=== PATIENT | male | born 1945 | race Asian ===

== ENCOUNTER 2022-07-25 19:37 | Inpatient (IN) | payer BC ==
[~2022-07-25] VITALS: Ht 175.3 cm; Wt 67.1 kg
[2022-07-25 19:43] VITALS: BP 152/62
--- NOTE | 2022-07-25 19:43 | NUR ---
PT BIBA TO ER BED 11 ALS
--- NOTE | 2022-07-25 19:48 | NUR ---
SEE COMPLETE ASSESSMENT FOR FURTHER DETAIL
--- NOTE | 2022-07-25 20:00 | NUR ---
PER BODY CHECK NO WOUNDS NOTED.
[2022-07-25] MEDS ORDERED: VANCOMYCIN 1,000 MG in DEXTROSE 5% 250 ML IV ONE (20:10)
[2022-07-25] MEDS ORDERED: NACL 0.9% 1,000 ML IV ONE (20:10)
[2022-07-25] MEDS ORDERED: MEROPENEM 1,000 MG in NACL 0.9% 50 ML IV ONE (20:10)
--- NOTE | 2022-07-25 20:22 | NUR ---
PT'S IS HYSTERICAL, IS NOT ALLOWING TO PROVIDE CARE. PT VERBALIZED SHE DOES NOT WANT HER HERE, SHE WANTED HIM TO GO TO [facility]. SECURITY IS AT BEDSIDE. UNABLE TO REMOVE FROM ER. [place] [employer] CONTACTED, STATES THEY WILL SEND SOMEONE OUT.
--- NOTE | 2022-07-25 20:34 | NUR ---
[place] [employer] AT BEDSIDE.
--- NOTE | 2022-07-25 21:03 | NUR ---
RADIOLOGY AT BEDSIDE
[2022-07-25 21:07] LABS: HEMOGLOBIN 11.1 g/dL (12.0-18.0); MEAN CORPUSCULAR HEMOGLOBIN 31 pg (27-31); MEAN CORPUSCULAR HGB CONC 33 g/dL (33-37); MEAN CORPUSCULAR VOLUME 94.4 fL (80-94); PLATELET COUNT (AUTO) 274 K/uL (140-450); RED CELL DISTRIBUTION WIDTH 14.8 % (11.6-13.7)
[2022-07-25] MEDS ORDERED: MEROPENEM 1,000 MG VIAL IV ONE (21:08)
[2022-07-25] MEDS ORDERED: VANCOMYCIN 1,000 MG VIAL ONE (21:08)
[2022-07-25 21:31] LABS: EOSINOPHILS % (MANUAL) 1 % (0-4); LYMPHOCYTES % (MANUAL) 8 % (20-46); MONOCYTES % (MANUAL) 1 % (5-12); MYELOCYTES % 1 % (0-0); PROMYELOCYTES % 3 % (0-0)
[2022-07-25 21:35] LABS: ALBUMIN 1.9 g/dL (3.4-5.0); ANION GAP 9.3 (8-16); ASPARTATE AMINOTRANSFERASE 19 U/L (15-37); CHLORIDE 108 mmol/L (98-107); CREATININE 0.9 mg/dL (0.6-1.3); GLUCOSE 115 mg/dL (74-106); POTASSIUM 3.3 mmol/L (3.5-5.1); SODIUM SERUM 146 mmol/L (136-145); TOTAL BILIRUBIN 0.4 mg/dL (0.0-1.0); UREA NITROGEN, BLOOD 34 mg/dL (7-18)
[2022-07-25] MEDS ORDERED: BETH5TAB GT (22:08)
[2022-07-25] MEDS ORDERED: ALBU0.0912 INH (22:08)
[2022-07-25] MEDS ORDERED: MULT-2253 PO (22:08)
[2022-07-25] MEDS ORDERED: ATRMDI INH (22:08)
[2022-07-25] MEDS ORDERED: LACT-103 GT (22:08)
[2022-07-25] MEDS ORDERED: SCOP0.333 TP (22:08)
[2022-07-25] MEDS ORDERED: AMIO100T3 GT (22:08)
[2022-07-25] MEDS ORDERED: MIDO10TA GT (22:08)
[2022-07-25] MEDS ORDERED: DOCU-299 GT (22:08)
[2022-07-25] MEDS ORDERED: VANCOMYCIN PER PHARMACY MC PRN ×3 (22:10→22:30)
[2022-07-25] MEDS ORDERED: ONDANSETRON 4 MG/2 ML VIAL IVP PRN ×3 (22:10→22:30)
[2022-07-25] MEDS ORDERED: POTASSIUM CHLORIDE 10 MEQ TABER PO PRN ×3 (22:10→22:30)
[2022-07-25] MEDS ORDERED: ACETAMINOPHEN 325 MG TAB PO PRN ×2 (22:10→22:15)
[2022-07-25] MEDS ORDERED: MORPHINE SULFATE 4 MG/ML SYR IVP PRN ×3 (22:10→22:30)
[2022-07-25] MEDS ORDERED: MAGNESIUM OXIDE 400 MG TAB PO PRN ×3 (22:10→22:30)
--- NOTE | 2022-07-25 23:20 | NUR ---
# 16 FR Johnson catheter with 10 ml utilizing sterile technique. Immediate return of 10 ml cloudy yellow urine noted. Bedside drainage bag placed below level of bladder. Urine sample collected and sent to lab. Pt tolerated procedure well.
--- NOTE | 2022-07-25 23:39 | NUR ---
PROVIDED SEAN SWEET WITH AN UPDATE.
--- NOTE | 2022-07-25 23:40 | NUR ---
brief and linen changed. pt repositioned or comfort. lights dimmed.
[2022-07-26] MEDS ORDERED: PIPERACILLIN/TAZOBACTAM 3.375 GM in DEXTROSE 5% 50 ML IV SCH ×4
[2022-07-26] MEDS: PIPERACILLIN/TAZOBACTAM 3.375 GM in DEXTROSE 5% 50 ML IV SCH ×5 (00:18→23:50)
[2022-07-26] MEDS ORDERED: PIPERACILLIN/TAZOBACTAM 3.375 GM VIAL IV ONE ×2 (00:18→06:08)
[2022-07-26 00:54] LABS: APPEARANCE,URINE CLEAR (CLEAR); BILIRUBIN,URINE NEGATIVE (NEGATIVE); BLOOD, URINE 1+ (NEGATIVE); COLOR,URINE YELLOW (YELLOW); LEUKOCYTE ESTERASE ,URINE NEGATIVE (NEGATIVE); NITRITE, URINE NEGATIVE (NEGATIVE); PH,URINE 7.5 (5.0-9.0); UGLUCOSE NEGATIVE (NEGATIVE)
[2022-07-26 01:01] LABS: RBC,URINE 11-20 (MOD) /HPF (0-5)
--- NOTE | 2022-07-26 03:55 | NUR ---
pt destated to bed 81% via nc. RT to bedside to nasal suction. pt at 88%. pt placed on 15l non-rebreather. o2 sat at 92%.
--- NOTE | 2022-07-26 04:15 | NUR ---
pt brief changed. 1 loose bowel movement noted. during brief change pt noted to feel warm. temp taken at 103.
[2022-07-26] MEDS: ACETAMINOPHEN 325 MG TAB PO PRN ×3 (04:18→18:14)
--- NOTE | 2022-07-26 04:30 | NUR ---
COOLING MEASURES STARTED
[2022-07-26] MEDS ORDERED: ACETAMINOPHEN 325 MG SUPP RC ONE (04:31)
[2022-07-26] MEDS ORDERED: ACETAMINOPHEN 325 MG TAB ONE (04:33)
--- NOTE | 2022-07-26 04:40 | NUR ---
PT O2 MAINTAINED AT 95% VIA 15L NRB
--- NOTE | 2022-07-26 06:05 | NUR ---
PT PLACED ON 4L VIA NC. O2 SAT MAINTAINED AT 94%
--- NOTE | 2022-07-26 06:20 | NUR ---
SHAH COLLECTION EMPTIED, 450CC OF YELLOW URINE NOTED
--- NOTE | 2022-07-26 07:15 | NUR ---
REPORT GIVEN TO SHALONDA RAYA. TRANSFER OF CARE AT THIS TIME.
[2022-07-26 07:34] LABS: BASOPHILS % (AUTO) 0.1 % (0.0-2.0); EOSINOPHILS # (AUTO) 0.3 K/uL (0-0.4); EOSINOPHILS % (AUTO) 1.3 % (0.0-4.0); HEMATOCRIT 34.6 % (36-52); HEMOGLOBIN 11.3 g/dL (12.0-18.0); LYMPHOCYTES # (AUTO) 0.5 K/uL (2.0-11.5); LYMPHOCYTES % (AUTO) 2.3 % (20.5-51.1); MEAN CORPUSCULAR HEMOGLOBIN 31 pg (27-31); MEAN CORPUSCULAR HGB CONC 33 g/dL (33-37); MEAN CORPUSCULAR VOLUME 94.5 fL (80-94); MONOCYTES # (AUTO) 0.6 K/uL (0.8-1.0); NEUTROPHILS # (AUTO) 20.2 K/uL (1.8-7.7); NEUTROPHILS % (AUTO) 93.3 % (42.2-75.2); PLATELET COUNT (AUTO) 276 K/uL (140-450); RED BLOOD CELL COUNT(AUTO) 3.66 MIL/uL (4.20-6.10); WHITE BLOOD COUNT (AUTO) 21.6 K/uL (4.8-10.8)
[2022-07-26 07:46] LABS: ANION GAP 12.1 (8-16); CHLORIDE 111 mmol/L (98-107); CREATININE 1.1 mg/dL (0.6-1.3); GLUCOSE 100 mg/dL (74-106); POTASSIUM 3.1 mmol/L (3.5-5.1); SODIUM SERUM 148 mmol/L (136-145); UREA NITROGEN, BLOOD 30 mg/dL (7-18)
[2022-07-26 07:51] LABS: MAGNESIUM 2.4 mg/dL (1.8-2.4); PHOSPHORUS 2.4 mg/dL (2.5-4.9)
--- NOTE | 2022-07-26 08:26 | NUR ---
PT ARRIVED FROM ER. WITH A LOT OF CONGESTION, SUCTION AND COLLECTED SPUTUM PT IN 3L NC.[id number]
--- NOTE | 2022-07-26 08:26 | NUR ---
RECEIVED PT FROM ER ON 4L NASAL CANNULA.
[2022-07-26] MEDS: ALBUTEROL SULFATE/IPRATROPIU 3 ML SOL IH SCH ×3 (08:30→21:20)
--- NOTE | 2022-07-26 08:30 | NUR ---
NTS ON PT, SPUTUM SAMPLE SET TO LAB. PT RESTING COMFORTABLY. WILL CONTINUE TO MONITOR.
--- NOTE | 2022-07-26 08:36 | NUR ---
Patient will be admitted to care of DINESH LOCKE. Admitted to telemetry. Will go to room 108B. Belongings list completed. Report to Jan LIZ.
--- NOTE | 2022-07-26 08:39 | NUR ---
Patient will be admitted to care of 103A. Admited to TELE. Will go to room. Belongings list completed. Report to .
[2022-07-26] MEDS: AMIODARONE 200 MG TAB PO SCH (09:00)
[2022-07-26] MEDS: MIDODRINE 5 MG TAB PO SCH ×3 (09:00→17:00)
--- NOTE | 2022-07-26 09:24 | NUR ---
PATIENT HAS BEEN SCREENED AND CATEGORIZED MODERATE NUTRITION RISK. PATIENT WILL BE SEEN WITHIN 3-5 DAYS OF ADMISSION. 07/25/22-07/30/[address]
--- NOTE | 2022-07-26 12:40 | NUR ---
PT CURRENTLY ON 5L BUBBLE. SATURATION IS 95%. COARSE BREATH SOUNDS. 1045 REPEAT NTS. THICK YELLOW SPUTUM SUCTIONED UP. IMPROVED BREATH SOUNDS. ASKED DAUGHTER KINDLY TO NOT TOUCH THE FLOWMETER AND SUCTION ON THE WALL. WILL CONTINUE TO MONITOR.
[2022-07-26 15:23] VITALS: BP 116/62
[2022-07-26 16:44] VITALS: BP 111/57
--- NOTE | 2022-07-26 16:44 | NUR ---
PATIENT HAS BEEN RESCREENED AND CATEGORIZED HIGH NUTRITION RISK. PATIENT WILL BE SEEN WITHIN 1-2 DAYS OF ADMISSION. 07/25/22-07/27/[address] REFERRAL RECEIVED FOR G TUBE FEEDING
[2022-07-26] MEDS: VANCOMYCIN 1,000 MG in DEXTROSE 5% 250 ML IV SCH (16:47)
--- NOTE | 2022-07-26 17:08 | NUR ---
07/26/22 RD INITIAL ASSESSMENT COMPLETED. PLEASE REFER TO NUTRITION ASSESSMENT UNDER CARE ACTIVITY FOR ESTIMATED NUTRITIONAL NEEDS. 1. CONTINUE JEVITY 1.2 YURY TF WITH A GOAL RATE OF 60ML/HR TOLERATED; FWF 100 ML Q6H OR PER MD. START TF AT 20 ML/HR AND INCREASE BY 20 ML Q4 UNTIL GOAL RATE IS REACHED PT TOLERATES. 2. MONITOR FOR GI SYMPTOMS 3. RD TO FOLLOW-UP 2-3 DAYS, HIGH RISK [address]
--- NOTE | 2022-07-26 17:39 | NUR ---
PT ON 5L BUBBLE HUMIDIFIER. SATURATION 97-98%. RHONCHI ON AUSCULTATION. SUCTION NEEDED. WILL CONTINUE TO MONITOR.
--- NOTE | 2022-07-26 17:47 | NUR ---
SUCTIONED PT SEVERAL TIMES IV ANTIBIOTIC INFUSING ORDERED.V.S STABLE G- TUBE FEEDING IS INFUSING ORDERED.[id number]
--- NOTE | 2022-07-26 19:30 | NUR ---
REVRIVED PT IN STABLE CONDITION.SL X2 PATENT.RESP.UNLABORED W/O2 VIA NC.F/C PATENT AND DRAINING YELLOW COLOR URINE.TELE IS ON AND SHOWING SR.G-T FEEDING IS IN PROGRESS.NO S/S OF ANY DISTRESS NOTED.
[2022-07-26 20:00] VITALS: BP 111/57
[2022-07-27] VITALS: BP 109/60
--- NOTE | 2022-07-27 | NUR ---
VS STABLE.HR IS SR.NO S/S OF DISTRESS NOTED.
[2022-07-27] MEDS: ALBUTEROL SULFATE/IPRATROPIU 3 ML SOL IH SCH ×4 (01:54→19:27)
[2022-07-27 04:00] VITALS: BP 111/63
[2022-07-27] MEDS: ACETAMINOPHEN 325 MG TAB PO PRN ×3 (04:02→19:59)
--- NOTE | 2022-07-27 04:30 | NUR ---
HAD FEVER TAQQ=249.3.TYLENOL VIA G-TUBE GIVEN.WILL MONITOR TEMP LATER.HR IS SR.SUCTIONED PT PRN.
[2022-07-27] MEDS: PIPERACILLIN/TAZOBACTAM 3.375 GM in DEXTROSE 5% 50 ML IV SCH ×2 (05:47→12:00)
--- NOTE | 2022-07-27 07:00 | NUR ---
RECHECKED TEMP=99.2
[2022-07-27 07:28] LABS: BASOPHILS % (AUTO) 0.1 % (0.0-2.0); EOSINOPHILS # (AUTO) 0.5 K/uL (0-0.4); EOSINOPHILS % (AUTO) 2.5 % (0.0-4.0); HEMATOCRIT 31.9 % (36-52); HEMOGLOBIN 10.5 g/dL (12.0-18.0); LYMPHOCYTES # (AUTO) 0.9 K/uL (2.0-11.5); LYMPHOCYTES % (AUTO) 4.6 % (20.5-51.1); MEAN CORPUSCULAR HEMOGLOBIN 31 pg (27-31); MEAN CORPUSCULAR HGB CONC 33 g/dL (33-37); MONOCYTES # (AUTO) 0.6 K/uL (0.8-1.0); MONOCYTES % (AUTO) 3.4 % (1.7-9.3); NEUTROPHILS # (AUTO) 16.5 K/uL (1.8-7.7); NEUTROPHILS % (AUTO) 89.4 % (42.2-75.2); PLATELET COUNT (AUTO) 301 K/uL (140-450); RED BLOOD CELL COUNT(AUTO) 3.39 MIL/uL (4.20-6.10); RED CELL DISTRIBUTION WIDTH 15.1 % (11.6-13.7); WHITE BLOOD COUNT (AUTO) 18.4 K/uL (4.8-10.8)
[2022-07-27 07:38] LABS: ANION GAP 11.7 (8-16); CARBON DIOXIDE 27.8 mmol/L (21-32); CHLORIDE 113 mmol/L (98-107); CREATININE 1.2 mg/dL (0.6-1.3); GLUCOSE 158 mg/dL (74-106); POTASSIUM 3.5 mmol/L (3.5-5.1); SODIUM SERUM 149 mmol/L (136-145); UREA NITROGEN, BLOOD 33 mg/dL (7-18)
[2022-07-27 07:45] LABS: MAGNESIUM 2.3 mg/dL (1.8-2.4)
[2022-07-27 08:00] VITALS: BP 118/56
[2022-07-27] MEDS: MIDODRINE 5 MG TAB PO SCH ×3 (09:00→16:47)
[2022-07-27] MEDS: AMIODARONE 200 MG TAB PO SCH (09:09)
[2022-07-27] MEDS: VANCOMYCIN 1,000 MG in DEXTROSE 5% 250 ML IV SCH (10:00)
[2022-07-27 12:00] VITALS: BP 119/59
--- NOTE | 2022-07-27 14:52 | NUR ---
SATURATION 95% ON HUMIDIFIED SUPPLEMENTAL OXYGEN AT 5 LPM VIA NC; USING STERILE TECHNIQUE NASOTRACHEAL AND OROPHARYNGEAL SUCTION FRO LARGE THIN YELLOW SECRETIONS AIRWAY PATENT; POST HHN THERAPY TITRATED FIO2 TO 4 LPM
--- NOTE | 2022-07-27 15:21 | NUR ---
PM SHIFT NURSE INFORM THAT PATIENT'S FAMILY LEFT CAMERA IN PATIENT'S ROOM. NURSE REPORT THE SATURATION TO CHARGE NURSE BECAUSE IT IS VIOLATION FOR [place] LAW. SECURITY CALLED AND CAMERA REMOVED. AROUND 1400, PATIENT'S FAMILY COME TO FLOOR AND ACCUSE THAT HOSPITAL STAFF DID NOT DRESSING PATIENT IN CLOTHES. NURSE EXPLAIN THAT PATIENT'S TEMPERATURE ABOVE 99.0F. DRESSING PATIENT IN WARM CLOTHES IS NOT THERAPEUTIC FOR POSSIBLE ELEVATED TEMPERATURE. THEN FAMILY REQUEST GIVE TYLENOL FOR PREVENTING TEMPERATURE GETTING HIGH. NURSE GIVEN TYLENOL AT THIS TIME. ADDITIONALLY, PATIENT FAMILY STOP SUCTION AT MOUTH FOR SPUTUM. DEMANDING FOR STOOL SOFT, NURSE EXPLAIN THAT PATIENT IS ON TWO TYPES OF IV ANTIBIOTIC AND ANTIBIOTIC IS NATURAL LAXATIVE. Addendum: 07/27/22 at 1921 by Marianne Rothman RN ENDORSE PATIENT TO PM SHIFT NURSE WHILE REST IN BED W/ SIGNIFICANT OTHER AT BEDSIDE; PIV AT R. HAND 22G & L. HAND 24G SALINE LOCK; PATIENT IS COVER WITH WARM BLANKET AND TEMPORAL TEMPERATURE 99.2F
[2022-07-27 16:00] VITALS: BP 99/63
--- NOTE | 2022-07-27 19:30 | NUR ---
ENDORSED TO ME BY WILD LIZ , T 99.2 - WILL DO TSB , WILL CONT. TO MONITOR . Addendum: 07/28/22 at 0010 by Sherry Murcia RN TEMP RE CHECK AT 1940 100. 3 , FACIAL GRIMACING , FLACC 3 , O2 SAT 99 % , BP 98/61 , SR ON TELE MONITOR , WILL MEDICATE AND WILL CONT. TSB . FOR CLOSELY WATCH .
[2022-07-27 20:00] VITALS: BP 99/61
--- NOTE | 2022-07-27 21:00 | NUR ---
TEMP . RE CHECK 99.1F , CONTINUING GIVING TSB , WILL CONT . TO MONITOR. Addendum: 07/28/22 at 0802 by Sherry Murcia RN AT FEEDING RESIDUAL OF 20CC .
[2022-07-27] MEDS ORDERED: MEROPENEM 1,000 MG VIAL IV ONE (21:15)
[2022-07-27] MEDS: MEROPENEM 1,000 MG in NACL 0.9% 50 ML IV SCH (21:18)
--- NOTE | 2022-07-27 22:00 | NUR ---
TEMP RE CHECK , 98.2 , WILL TURN THE PT PER PROTOCOL , WILL CONT. TO MONITOR .
[2022-07-28] VITALS: BP 103/59
--- NOTE | 2022-07-28 | NUR ---
ROUNDS , NO S/SX OF ACUTE DISTRESS NOTED , WILL CONT. TO MONITOR .
[2022-07-28] MEDS: ALBUTEROL SULFATE/IPRATROPIU 3 ML SOL IH SCH ×4 (01:50→19:00)
--- NOTE | 2022-07-28 03:47 | NUR ---
RT AT BEDSIDE , SUNCTIONING , WILL CONT. TO MONITOR .
[2022-07-28 04:00] VITALS: BP 105/58
--- NOTE | 2022-07-28 04:00 | NUR ---
RENDERING TSB , WILL CONT. TO MONITOR
--- NOTE | 2022-07-28 05:07 | NUR ---
HOT TO TOUCH , TEMP[ RE CHECK 100.4 F , WILL TSB , WILL CONT. TO MONITOR .
[2022-07-28] MEDS: VANCOMYCIN 1,000 MG in DEXTROSE 5% 250 ML IV SCH ×2 (05:08→21:09)
[2022-07-28] MEDS: ACETAMINOPHEN 325 MG TAB PO PRN (05:08)
--- NOTE | 2022-07-28 05:59 | NUR ---
SUCTIONING , O2 SAT 98 % , WILL CONT. TO MONITOR .
--- NOTE | 2022-07-28 06:00 | NUR ---
TEMP RE CHECK 98. 6 F , BY FOREHEAD , 98 .5 F BY AXILLARY , WILL CONT. TO MONITOR .
[2022-07-28] MEDS: MEROPENEM 1,000 MG in NACL 0.9% 50 ML IV SCH ×2 (06:30→13:15)
--- NOTE | 2022-07-28 06:31 | NUR ---
RT TO FURTHER SUCTIONING , W/ PREVIOUSLY TRACH . , WILL CONT. TO MONITOR
[2022-07-28] MEDS ORDERED: MEROPENEM 1,000 MG VIAL IV ONE (06:34)
[2022-07-28 06:59] LABS: ANION GAP 12.4 (8-16); CARBON DIOXIDE 28.4 mmol/L (21-32); CHLORIDE 113 mmol/L (98-107); GLUCOSE 136 mg/dL (74-106); POTASSIUM 3.8 mmol/L (3.5-5.1); SODIUM SERUM 150 mmol/L (136-145); UREA NITROGEN, BLOOD 27 mg/dL (7-18)
--- NOTE | 2022-07-28 07:03 | NUR ---
RT AT BEDSIDE . Addendum: 07/28/22 at 0713 by Sherry Murcia RN INFORMED DR. HILL PT HAD 100.4F FEVER , AND THE PT.'S DAUGHTER WANTS TO TALK DR. HILL ABOUT PLAN OF CARE AND TXT , PT'S DAUGHTER SUGGESTING TRANSFER PT TO ICU . PER DR. HILL HE WILL SEE THE PT AND WILL CALL THE DAUGHTER . - WILL ENDORSE .
[2022-07-28 07:09] LABS: MAGNESIUM 2.3 mg/dL (1.8-2.4); PHOSPHORUS 4.5 mg/dL (2.5-4.9)
[2022-07-28 07:11] LABS: BASOPHILS % (AUTO) 0.2 % (0.0-2.0); EOSINOPHILS # (AUTO) 0.6 K/uL (0-0.4); EOSINOPHILS % (AUTO) 3.9 % (0.0-4.0); HEMATOCRIT 31.3 % (36-52); HEMOGLOBIN 10.3 g/dL (12.0-18.0); LYMPHOCYTES # (AUTO) 1.3 K/uL (2.0-11.5); LYMPHOCYTES % (AUTO) 8.1 % (20.5-51.1); MEAN CORPUSCULAR HEMOGLOBIN 31 pg (27-31); MEAN CORPUSCULAR HGB CONC 33 g/dL (33-37); MEAN CORPUSCULAR VOLUME 94.5 fL (80-94); MONOCYTES # (AUTO) 0.6 K/uL (0.8-1.0); MONOCYTES % (AUTO) 3.8 % (1.7-9.3); NEUTROPHILS # (AUTO) 13.1 K/uL (1.8-7.7); PLATELET COUNT (AUTO) 306 K/uL (140-450); RED BLOOD CELL COUNT(AUTO) 3.31 MIL/uL (4.20-6.10); RED CELL DISTRIBUTION WIDTH 14.9 % (11.6-13.7); WHITE BLOOD COUNT (AUTO) 15.6 K/uL (4.8-10.8)
--- NOTE | 2022-07-28 07:15 | NUR ---
RECEIVED REPORT FROM RANGE MANAGEMENT SPECIALIST NURSE RUFINO FOR CONTINUITY OF CARE. PT STABLE IN BED RESTING. NO SIGNS OF DISTRESS. ALL SAFETY PRECAUTIONS IN PLACE. WILL CONTINUE TO MONITOR.
--- NOTE | 2022-07-28 07:25 | NUR ---
INFORMED DR. ANNE AND DR. IRELAND PT HAD FEVER 100.4 F , AND PT.'S DAUGHTER WANTS TO TALK THE DOCTOR ABOUT THE PLAN OF CARE AND TXT , PT.'S DAUGHTER SUGGESTING PT TO TRANSFER TO ICU . DR. IRELAND READ MY TEXT MSG - ENDORSED TO AM NURSE . LATEST TEMP 98.3 F .
[2022-07-28 08:00] VITALS: BP 102/60
[2022-07-28] MEDS: MIDODRINE 5 MG TAB PO SCH ×3 (09:57→17:22)
[2022-07-28] MEDS: AMIODARONE 200 MG TAB PO SCH (09:57)
[2022-07-28] MEDS: DEXT 5% / NACL 0.45% 1,000 ML IV SCH ×2 (10:43→20:55)
[2022-07-28 12:00] VITALS: BP 110/73
--- NOTE | 2022-07-28 15:00 | NUR ---
DISCHARGE PLANNING PATIENT IS A 77 YEAR OLD MALE ADMITTED ON 07/25/2022 TO [facility]/ED DUE TO PNEUMONIA. SW MEET WITH PATIENT, DAUGHTER AND HIS AT BEDSIDE. PER PATIENT'S DAUGHTER KEE OMER PATIENT WAS IN [facility] IN [place] SINCE 2021. AND IS REQUESTING TO HAVE PATIENT CHANGE TO A DIFFERENT SNF WHEN IS TIME FOR PATIENT TO DISCHARGE. PER PATIENT'S DAUGHTER SHE WANTS PATIENT TO GO TO [facility] OR TO [facility]. PER PATIENT'S DAUGHTER IF PATIENT CAN NOT GO TO NEITHER OF THOSE FACILITIES SHE PREFERS FOR PATIENT TO GO BACK HOME WITH . SW EXPLAINED TO FAMILY THAT IF PATIENT GOES HOME HE MAY NEED TO HAVE ASSISTANCE FROM CAREGIVERS. FAMILY ACKNOWLEDGE THE INFORMATION AND STATED THAT THEY WILL LIKE TO TRY TO TO HAVE PATIENT GO TO THE OTHER TWO FACILITIES OF THEIR CHOICE. PER PATIENT'S FAMILY THEY WILL CONTINUE TO COMMUNICATE WITH THE TEAM AND THE DOCTOR TO COORDINATE DISCHARGE AND LEVEL OF CARE BEFORE DISCHARGE AND FACILITY PLACEMENT. GELY INFORMED FAMILY THAT THEIR CONCERNS WILL BE ENDORSE TO CM. SW /CM WILL FOLLOW UP NEEDED.
--- NOTE | 2022-07-28 15:09 | NUR ---
DC PLANNING: PER FAMILY REQUEST DAUGHTER KEE TO TRANSFER TO [facility]. RECEIVED A CALL FROM [facility] [phone] SPOKE WITH KYAW PIERSONYESI STATED SHE REQUESTED A BED AND THERE IS NO BED AND WILL F/U TOMORROW. CM TO FOLLOW Addendum: 07/30/22 at 1211 by Halina Sutton RN DC PLANNING: CALLED [facility] SPOKE WITH SILVIA CARD DISCUSSED THE TRANSFER TO [facility] THERE IS NO BED AVAILABLE AT THIS TIME. WILL DISCUSS WITH DR IRELAND AND PT'S DAUGHTER. KYAW TO FOLLOW Addendum: 07/30/22 at 1554 by Halina Sutton RN DC PLANNING: KYAW DISCUSSED THE DC PLAN WITH DR IRELAND , DR IRELAND CALLED PT'S DAUGHTER EXPLAINED THAT [facility] HAS NO BED AND PATIENT IS STABLE FOR DISCHARGE. PER KEE REFUSED HIM TO GO BACK TO [facility] AND WANTED TO TAKE HIM HOME. ORDER FOR HOME HEALTH, HOME O2 , [facility] BED WHEELCHAIR AND BED SIDE COMMODE. KYAW CONTACTED [facility] SPOKE WITH SILVIA AND FAXED ALL THE REQUEST TO [phone]. PER SILVIA WILL WORKING ON IT AND DC PLAN TOMORROW 07/31/22 KEE AGREED AND AWAITING FOR INSURANCE APPROVAL. KYAW TO FOLLOW. Addendum: 07/31/22 at 1511 by Halina Sutton RN DC PLANNING: UNABLE TO REACH KYAW VEGA [phone] IRELAND HAVING A PROBLEM WITH PHONE LINE. KYAW AND DR IRELAND DISCUSSED THE DC PLAN WITH KEE DAUGHTER PER KEE SHE DOESN'T WANT TO SEND HER FATHER TO [facility] OR AND OTHER SNF RATHER WANT TO TAKE HIM HOME SHE IS REQUESTING THE DME TO BE DELIVERED TO HER ADDRESS [address] [place] [address] [address] [facility] [id number]. KYAW EXPLAINED INSURANCE WON'T COVER THE TRANSPORT TO [place] PER KEE WILL PAY THE CO PAY. KYAW TO FOLLOW Addendum: 07/31/22 at 1627 by Halina Sutton RN DC PLANNING: RECEIVED A CALL FROM [facility] [phone] SPOKE WITH CHACHA CARD STATED THE ORDER FOR HOSPITAL BED AND WHEELCHAIR HAS TO BE REVIEWED AND STILL AWAITING TO AUTHORIZE IT BUT SHE STATED WILL ORDER HOME HEALTH AND HOME O2 AND NOTIFIED HER THAT TO BE DELIVERED AT DAUGHTER'S HOUSE IN [place]. PROVIDE NEW [employer] SUP NUMBERRolan CARD TO FOLLOW Addendum: 08/12/22 at 1710 by Halina Sutton RN DC PLANNING: STILL INTUBATED SEDATED ON CPAP TRIAL, CONTINUED TOLERATED FIO2 30% NO DRIPS. CALLED [facility] [phone] SPOKE WITH JET ESCOBAR PT'S CLINICAL, SHE REQUESTED 'S PHONE PROVIDE CRITICAL CARE DR JOHNSON'S NUMBER. KYAW TO FOLLOW Addendum: 08/17/22 at 1159 by Halina Sutton RN DC PLANNING: PATIENT HAS TRACHEOSTOMY ON 08/14/22 STABILIZED AND TRANSFERRED TO [facility], CONTINUE IV ABX LEVAQUIN AND VANCO. ID AND PULMO FOLLOWING. CALLED [facility] AND FOLLOWED UP WITH [facility] TRANSFER PER FRANK AT [facility] STATED O BED OVER THE WEEKEND PER DAUGHTER DOESN'T WANT [facility] BUT OK WITH [facility]. FAXED UPDATED CLINICALS DC PLAN IF MD CLEARS PATIENT TO GO TO [facility] ACUTE WILL RETURN TO [facility] RECEIVED A CALL FROM [facility] [phone] SPOKE WITH MARSHALL WILL EVALUATE PT . CM TO FOLLOW Addendum: 08/19/22 at 1713 by Halina Sutton RN DC PLANNING: CALLED [facility] SPOKE WITH FRANK STATED NO BED AVAILABLE IN [facility] PER DAUGHTER REQUESTING TO TALK TO DR JOSE MELGOZA PATIENT HAS TO GO TO [facility] AND OPEN FOR ANY [facility]. NOTIFIED DR GARCIA. CM TO FOLLOW Addendum: 08/21/22 at 1416 by Halina Sutton RN DC PLANNING: KYAW SPOKE WITH SILVIA AT [facility] DISCUSSED POTENTIAL DISCHARGE TO [facility] VS [facility] AND NO BED AVAILABLE AT [facility] PER SILVIA IF MD ORDER DC TO [facility] AND WE FIND ONE DAUGHTER CAN APPEAL TO [facility]. NOTIFIED DR ANNE WILL DISCUSS WITH DR GARCIA. KYAW TO FOLLOW Addendum: 08/24/22 at 1232 by Halina Sutton RN DC PLANNING: [facility] SPOKE WITH FRANK STATED NO BED AVAILABLE IN [facility]. FAXED TO [facility]. KYAW TO FOLLOW Addendum: 08/24/22 at 1550 by Halina Sutton RN DC PLANNING: RECEIVED A CALL FROM FRANK AT [facility] STATED [facility] MIGHT HAVE A BED TONIGHT. CALLED [facility] CARD SPOKE WITH JET AND PROVIDED THE AUTH NUMBER FOR [facility] [id number], SHE WILL SEND THE HARD COPY TO [facility]. CARD TO FOLLOW Addendum: 08/24/22 at 1638 by Halina Sutton RN DC PLANNING: RECEIVED A CALL FROM [facility]ANK PATIENT GOT ACCEPTED AT [facility] CAN GO TO ROOM [address] JOHNSON .# TO GIVE REPORT [phone] ARRANGED TRANSPORT WITH [facility] PICK UPTIME WITH IN 45 MIN NOTIFIED FERNANDO FELIX NURSE Addendum: 08/24/22 at 1641 by Halina Sutton RN DC PLANNING: NOTIFIED PT'S DAUGHTER KEE , SHE AGREED GOING TO [facility].
[2022-07-28 16:00] VITALS: BP 110/68
[2022-07-28] MEDS ORDERED: cefTRIAXone 2,000 MG VIAL ONE (18:05)
[2022-07-28] MEDS: cefTRIAXone 2,000 MG in DEXTROSE 5% 100 ML IV SCH (18:49)
--- NOTE | 2022-07-28 19:10 | NUR ---
ENDORSED PT TO CHEMICAL SALES REPRESENTATIVE NURSE MARYCARMEN FOR CONTINUITY OF CARE. PT STABLE AT THIS TIME.
--- NOTE | 2022-07-28 19:11 | NUR ---
RECEIVED PT FROM MORNING SHIFT NURSE. PT IS A0X1, MANDARIN SPEAKING AND HAS GARBLE SPEECH. PT HAS 2L NC AND HAS SHAH CATHETER. PY HAS G-TUBE WITH JEVITY 1.2 RUNNING AT 6OML/HR WITH WATER FLUSH OF 250 EVERY 6 HRS. PT IV ON RIGHT FOREARM GAUGE 22 RUNNING WITH D5 1/2 NS AT 100. PT HAS HEALED WOUND ON SACRAL AND SKIN TEAR ON LEFT SHOULDER. ALL SAFETY MEASURES IMPLEMENTED. BED IN LOW POSITION, BED WHEELS ON LOCK AND CALL LIGHT WITHIN REACH.
[2022-07-28 20:00] VITALS: BP 111/65
[2022-07-28] MEDS ORDERED: MEROPENEM 1,000 MG in NACL 0.9% 100 ML IV SCH (21:00)
--- NOTE | 2022-07-28 21:09 | NUR ---
ALL SCHEDULED AND PRESCRIBED MEDICATION WAS GIVEN TO PT PER MD ORDER. ALL SAFETY MEASURES IMPLEMENTED. BED IN LOW POSITION, BED WHEELS ON LOCK AND CALL LIGHT WITHIN REACH.
[2022-07-29] VITALS: BP 103/59
--- NOTE | 2022-07-29 | NUR ---
PT IS SLEEPING. CHEST RISE AND FALL SYMMETRICALLY NOTED. RESPIRATION IS EVEN AND UNLABORED SATING AT 96%. ALL SAFETY MEASURES IMPLEMENTED. BED IN LOW POSITION, BED WHEELS ON LOCK AND CALL LIGHT WITHIN REACH.
[2022-07-29] MEDS: ALBUTEROL SULFATE/IPRATROPIU 3 ML SOL IH SCH ×4 (01:00→19:58)
--- NOTE | 2022-07-29 02:00 | NUR ---
ORAL CARE AND SUCTIONED THE PT. ALL SAFETY MEASURES IMPLEMENTED. BED IN LOW POSITION, BED WHEELS ON LOCK AND CALL LIGHT WITHIN REACH.
[2022-07-29 04:00] VITALS: BP 107/62
--- NOTE | 2022-07-29 04:00 | NUR ---
MORNING CARE WAS DONE TO PT. CHANGED LINENS, GOWN, & CHUCKS. SUCTIONED THE PT AGAIN. ALL SAFETY MEASURES IMPLEMENTED. BED IN LOW POSITION, BED WHEELS ON LOCK AND CALL LIGHT WITHIN REACH.
[2022-07-29] MEDS: DEXT 5% / NACL 0.45% 1,000 ML IV SCH ×2 (06:40→16:27)
[2022-07-29 06:57] LABS: BASOPHILS % (AUTO) 0.2 % (0.0-2.0); EOSINOPHILS # (AUTO) 0.5 K/uL (0-0.4); EOSINOPHILS % (AUTO) 3.4 % (0.0-4.0); HEMATOCRIT 30.3 % (36-52); LYMPHOCYTES # (AUTO) 2.2 K/uL (2.0-11.5); LYMPHOCYTES % (AUTO) 15.4 % (20.5-51.1); MEAN CORPUSCULAR HEMOGLOBIN 31 pg (27-31); MEAN CORPUSCULAR HGB CONC 33 g/dL (33-37); MEAN CORPUSCULAR VOLUME 94.7 fL (80-94); MONOCYTES # (AUTO) 0.6 K/uL (0.8-1.0); MONOCYTES % (AUTO) 4.1 % (1.7-9.3); NEUTROPHILS # (AUTO) 11.2 K/uL (1.8-7.7); NEUTROPHILS % (AUTO) 76.9 % (42.2-75.2); PLATELET COUNT (AUTO) 327 K/uL (140-450); RED CELL DISTRIBUTION WIDTH 14.7 % (11.6-13.7); WHITE BLOOD COUNT (AUTO) 14.6 K/uL (4.8-10.8)
[2022-07-29 07:01] LABS: ANION GAP 13.4 (8-16); CARBON DIOXIDE 25.7 mmol/L (21-32); CHLORIDE 110 mmol/L (98-107); CREATININE 0.8 mg/dL (0.6-1.3); GLUCOSE 143 mg/dL (74-106); POTASSIUM 4.1 mmol/L (3.5-5.1); SODIUM SERUM 145 mmol/L (136-145); UREA NITROGEN, BLOOD 21 mg/dL (7-18)
--- NOTE | 2022-07-29 07:10 | NUR ---
RECEIVED REPORT FROM OPTICAL EFFECTS CAMERA OPERATOR NURSE MARYCARMEN FOR CONTINUITY OF CARE. PT STABLE IN BED RESTING. NO SIGNS OF DISTRESS. ALL SAFETY PRECAUTIONS IN PLACE. WILL CONTINUE TO MONITOR.
[2022-07-29 07:12] LABS: MAGNESIUM 1.9 mg/dL (1.8-2.4); PHOSPHORUS 3.3 mg/dL (2.5-4.9)
--- NOTE | 2022-07-29 07:24 | NUR ---
PT IS STABLE. ENDORSED PT TO MORNING SHIFT NURSE FOR CONTINUITY OF CARE.
[2022-07-29 08:00] VITALS: BP 121/63
[2022-07-29] MEDS: MIDODRINE 5 MG TAB PO SCH ×3 (09:00→17:00)
[2022-07-29] MEDS: AMIODARONE 200 MG TAB PO SCH (09:23)
--- NOTE | 2022-07-29 11:28 | NUR ---
WOUND CARE EVALUATION NOTE: SKIN ASSESSMENT DONE WITH PRIMARY RN VANDANA ON THIS 77 Y/O PT ADMITTED WITH INITIAL DX SOB. PAST MEDICAL HX INCLUDES CKD, MDD, HISTORY OF CVA, NEUROMUSCULAR DYSFUNCTION OF BLADDER, HISTORY OF COVID-19, HTN, COPD, ISCHEMIC HEART DISEASE. PT ADMITTED WITH PRESSURE INJURY. ALL ABOVE INFORMATION OBTAINED FROM ADMISSION H&P AND CHART REVIEW. PT IS AWAKE WHEN TURNED, NON-VERBAL. SKIN IS WARM AND MOIST, BILATERAL LOWER EXTREMITY TRACE EDEMA. DORSAL PEDAL PULSES PRESENT AND NORMAL. INCONTINENT BOWEL AND BLADDER. POC DISCUSSED WITH PRIMARY RN, PT. IS ON [employer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
[2022-07-29 12:00] VITALS: BP_SYST 110; BP_SYST 121; BP_DIAS 63; BP_DIAS 85
[2022-07-29] MEDS: GAUZE TP SCH (13:29)
[2022-07-29] MEDS: Z-GUARD PASTE TP SCH (13:30)
[2022-07-29] MEDS: HYDRAGUARD CREAM TP SCH (13:30)
--- NOTE | 2022-07-29 15:58 | NUR ---
07/29/22 RD FOLLOW UP COMPLETED PLEASE REFER TO NUTRITION ASSESSMENT UNDER CARE ACTIVITY FOR ESTIMATED NUTRITIONAL NEEDS. 1. RECOMMEND JEVITY 1.2 @65 ML/HR, FWF 250 Q6H 2. RECOMMEND MARCELO BID - WITH MARCELO, WILL MEET 93% ESTIMATED ENERGY NEEDS AND 100% ESTIMATED PROTEIN NEEDS AND RECEIVE 1560 TOTAL VOLUME CONSISTING OF 2032 KCAL, 91 GM PROTEIN, AND TOTAL 2258 ML FREE WATER 3. MONITOR GI, WEIGHTS, LAB VALUES, AND RESIDUALS. 4. RD TO FOLLOW-UP 3-5 DAYS, MODERATE RISK REVIEWED BY CHIKI COHEN RD
[2022-07-29 16:00] VITALS: BP 122/77
[2022-07-29] MEDS: cefTRIAXone 2,000 MG in DEXTROSE 5% 100 ML IV SCH (18:08)
--- NOTE | 2022-07-29 19:05 | NUR ---
ENDORSED PT TO STRATEGY SPECIALIST NURSE MARYCARMEN FOR CONTINUITY OF CARE. PT STABLE AT THIS TIME.
[2022-07-29 20:00] VITALS: BP 104/60
--- NOTE | 2022-07-29 20:05 | NUR ---
RECEIVED REPORT FROM AM SHIFT. PATIENT WAS SEEN AND ASSESSED. PATIENT IS ON NASAL CANNULA 2L WITH SPO2 97%. NOTICED ADEQUATE BILATERAL CHEST RISE AND FALL. PATIENT IS IN NO RESPIRATORY DISTRESS AT THIS TIME. BILATERAL BREATH SOUNDS ON AUSCULTATION; UPPER LOBES: COARSE AND LOWER LOBES: COARSE. SCHEDULE TX WAS GIVEN TO PT ORDERED. PT TOLERATED WELL WITH NO ADVERSE REACTION. PLACED PT BACK ON 2L AFTER TX. PT TOLERATING WELL. WILL CONTINUE TO MONITOR PATIENT.
[2022-07-29] MEDS: POLYETHYLENE GLYCOL 17 GM/PKT PO SCH (20:48)
--- NOTE | 2022-07-29 22:00 | NUR ---
HANGED NEW G-TUBE FEEDING OF JEVITY 1.2 RUNNING AT 65CC/HR WITH WATER FLUSH OF 250 EVERY 6 HRS. ALL SAFETY MEASURES IMPLEMENTED. BED IN LOW POSITION, BED WHEELS ON LOCK AND CALL LIGHT WITHIN REACH.
[2022-07-30] VITALS: BP 93/54
--- NOTE | 2022-07-30 | NUR ---
PT IS SLEEPING. CHEST RISE AND FALL SYMMETRICALLY NOTED. RESPIRATION IS EVEN AND UNLABORED. ALL SAFETY MEASURES IMPLEMENTED. BED IN LOW POSITION, BED WHEELS ON LOCK AND CALL LIGHT WITHIN REACH.
[2022-07-30] MEDS: HYDRAGUARD CREAM TP SCH ×2 (01:04→12:31)
[2022-07-30] MEDS: ALBUTEROL SULFATE/IPRATROPIU 3 ML SOL IH SCH ×4 (01:14→19:23)
[2022-07-30] MEDS: DEXT 5% / NACL 0.45% 1,000 ML IV SCH ×2 (02:40→12:42)
[2022-07-30 04:00] VITALS: BP 98/55
--- NOTE | 2022-07-30 04:00 | NUR ---
MORNING CARE WITH ORAL CARE WAS DONE TO PT. ALL SAFETY MEASURES IMPLEMENTED. BED IN LOW POSITION, BED WHEELS ON LOCK AND CALL LIGHT WITHIN REACH.
[2022-07-30 06:43] LABS: ANION GAP 11.6 (8-16); CARBON DIOXIDE 27.3 mmol/L (21-32); CHLORIDE 110 mmol/L (98-107); CREATININE 0.9 mg/dL (0.6-1.3); GLUCOSE 161 mg/dL (74-106); POTASSIUM 3.9 mmol/L (3.5-5.1); SODIUM SERUM 145 mmol/L (136-145); UREA NITROGEN, BLOOD 18 mg/dL (7-18)
[2022-07-30 06:46] LABS: BASOPHILS % (AUTO) 0.4 % (0.0-2.0); EOSINOPHILS # (AUTO) 0.4 K/uL (0-0.4); EOSINOPHILS % (AUTO) 3.6 % (0.0-4.0); HEMATOCRIT 30.8 % (36-52); HEMOGLOBIN 10.3 g/dL (12.0-18.0); LYMPHOCYTES # (AUTO) 1.8 K/uL (2.0-11.5); LYMPHOCYTES % (AUTO) 17.2 % (20.5-51.1); MEAN CORPUSCULAR HEMOGLOBIN 32 pg (27-31); MEAN CORPUSCULAR HGB CONC 33 g/dL (33-37); MEAN CORPUSCULAR VOLUME 94.7 fL (80-94); MONOCYTES # (AUTO) 0.5 K/uL (0.8-1.0); MONOCYTES % (AUTO) 4.4 % (1.7-9.3); NEUTROPHILS # (AUTO) 7.9 K/uL (1.8-7.7); NEUTROPHILS % (AUTO) 74.4 % (42.2-75.2); PLATELET COUNT (AUTO) 325 K/uL (140-450); RED BLOOD CELL COUNT(AUTO) 3.25 MIL/uL (4.20-6.10); RED CELL DISTRIBUTION WIDTH 14.7 % (11.6-13.7); WHITE BLOOD COUNT (AUTO) 10.7 K/uL (4.8-10.8)
--- NOTE | 2022-07-30 07:10 | NUR ---
PT IS STABLE. ENDORSED PT TO MORNING SHIFT NURSE FOR CONTINUITY OF CARE.
--- NOTE | 2022-07-30 07:40 | NUR ---
RECEIVED PT ON 2L NASAL CANNULA. SATURATION 98%. EQUAL CHEST RISE. BILATERAL COURSE BREATH SOUNDS. NO RESPIRATORY DISTRESS NOTED. WILL CONTINUE TO MONITOR.
--- NOTE | 2022-07-30 07:49 | NUR ---
07/30/2022 Pt resting in bed RT at bedside. Pt lung sounds coarse rhonchi X 4 lobes. No acute distress noted at this time.
[2022-07-30 08:00] VITALS: BP 98/55
[2022-07-30] MEDS: AMIODARONE 200 MG TAB PO SCH (09:00)
[2022-07-30] MEDS: MIDODRINE 5 MG TAB PO SCH ×3 (09:00→17:00)
[2022-07-30] MEDS: POLYETHYLENE GLYCOL 17 GM/PKT PO SCH ×2 (09:00→20:31)
--- NOTE | 2022-07-30 10:30 | NUR ---
PT CURRENTLY ON 2LNC. SATURATION 93%. COARSE BILATERAL BREATH SOUNDS. REQUEST FOR NTS. THICK COPIOUS SECRETIONS WERE SUCTIONED OUT. SATURATION IS NOW 97%-98%. WILL CONTINUE TO MONITOR AND ASSESS FOR HOME O2.
--- NOTE | 2022-07-30 11:35 | NUR ---
HOME O2 EVALUATION. ROOM AIR SATURATION 95% FOR OVER 10MINS.
[2022-07-30 12:00] VITALS: BP 125/56
[2022-07-30] MEDS: GAUZE TP SCH (12:31)
[2022-07-30] MEDS: Z-GUARD PASTE TP SCH (12:32)
[2022-07-30 16:00] VITALS: BP 128/68
--- NOTE | 2022-07-30 16:34 | NUR ---
COARSE BREATH SOUNDS. UNABLE TO COUGH UP. NTS PT, SATURATION 93%. AFTER NTS SATURATION 96% ON ROOM AIR. WILL CONTINUE TO MONITOR.
[2022-07-30] MEDS: cefTRIAXone 2,000 MG in DEXTROSE 5% 100 ML IV SCH (18:15)
--- NOTE | 2022-07-30 19:18 | NUR ---
ENDORSED PT TO RITUAL CIRCUMCISER RN MJ FOR CONTINUITY OF CARE. PT STABLE RESTING IN BED. [id number]
--- NOTE | 2022-07-30 19:27 | NUR ---
PLACED PT ON 2L N/C PT SATURATION 89% UPON ENTERING ROOM, WITH PT ON ROOM AIR.
[2022-07-30 20:00] VITALS: BP 118/66
--- NOTE | 2022-07-30 20:00 | NUR ---
RECEIVED BEDSIDE REPORT FROM DAY NURSE EARLIER FOR CONTINUITY OF CARE. PATIENT ASLEEP,AROUSABLE TO NAME AND TOUCH. PATIENT ORIENTED TO SELF ONLY AND TRIES TO MUMBLE WORDS BUT UNABLE TO UNDERSTAND THE PATIENT. NOT IN ANY DISTRESS. VITAL SIGNS STABLE, AFEBRILE, SATING 96% ON 2L/NC. SR ON TELE MONITOR, [id number]. FALL PRECAUTION IMPLEMENTED. BED IN LOW AND LOCKED POSITION. CALL LIGHT WITHIN REACH. WILL CONTINUE POC
--- NOTE | 2022-07-30 21:30 | NUR ---
PATIENT AND DAUGHTER BOTH CALLED EARLIER AND ASKED ABOUT THE PATIENT CONDITION. GAVE BOTH AN UPDATE ABOUT THE PATIENT CONDITION AND VITAL SIGNS.
--- NOTE | 2022-07-30 22:00 | NUR ---
ALL DUE MEDICATIONS GIVEN ORDERED. PATIENT TOLERATED IT WELL. NO ADVERSE DRUG REACTION NOTED.
[2022-07-31] VITALS: BP 115/71
[2022-07-31] MEDS: ALBUTEROL SULFATE/IPRATROPIU 3 ML SOL IH SCH ×4 (00:29→19:26)
--- NOTE | 2022-07-31 01:16 | NUR ---
PAGED DR SPRINGER CERTIFIED NURSE MIDWIFE MD FOR TONIGHT TO NOTIFY MD THAT THE PATIENT HASN'T VOIDED YET AFTER SHAH WAS DC/D 6 HOURS AGO. BLADDER SCAN WAS DONE AND SHOWED >930 CC IN THE BLADDER. ALSO NEED TO NOTIFY MD THAT THE PATIENT IS VERY CONGESTED AND COUGHING A LOT TONIGHT. SUCTION AND BREATHING TREATMENT PROVIDED TOT HE PATIENT. AWAITING FOR CERTIFIED NURSE MIDWIFE MD TO CALL BACK.
[2022-07-31] MEDS: HYDRAGUARD CREAM TP SCH ×2 (01:30→13:00)
--- NOTE | 2022-07-31 01:30 | NUR ---
DR SPRINGER CALLED BACK AND AWARE THAT THE PATIENT DIDN'T VOID 6 HOURS AFTER THE SHAH IS DC'D AND ALSO AWARE THAT THE PATIENT IS CONGESTED AND HAS A LOT OF MUCUS. DR SPRINGER ORDERED TO DO BLADDER SCAN Q4 HOURS AND IF RESIDUAL IS > 400 CC TO DO STRAIGHT CATHETERIZATION. DR SPRINGER ALSO ORDERED TO DO CXR.
--- NOTE | 2022-07-31 02:27 | NUR ---
DID STRAIGHT CATHETERIZATION ORDERED. PATIENT HAS 1400 CC CLEAR URINE CAME OUT. PATIENT TOLERATED IT WELL.
[2022-07-31 04:00] VITALS: BP 106/57
--- NOTE | 2022-07-31 04:00 | NUR ---
VITAL SIGNS STABLE, AFEBRILE, SATING 99% ON 2L/NC. NO COMPLAIN AT THIS TIME. NOT IN ANY DISTRESS. SAFETY MEASURES IN PLACED. SUCTION PROVIDED NEEDED.
--- NOTE | 2022-07-31 06:09 | NUR ---
NO ACUTE EVENT THROUGHOUT THE NIGHT. PATIENT STABLE AND NOT IN ANY DISTRESS. ALL NEEDS ATTENDED. CALL LIGHT WITHIN REACH. WILL ENDORSE THE PATIENT TO THE ONCOMING RN FOR CONTINUITY OF CARE.
--- NOTE | 2022-07-31 06:38 | NUR ---
BLADDER SCAN DONE ORDERED. NO RESIDUAL NOTED. SUCTIONED THE PATIENT AND MOUTH CARE PROVIDED. WILL ENDORSE IT TO DAY NURSE FOR CONTINUITY OF CARE.
--- NOTE | 2022-07-31 07:30 | NUR ---
received report from nightshift RN. Care taken over. pt vitals stable, no distress noteds.
--- NOTE | 2022-07-31 07:39 | NUR ---
ENDORSED THE PATIENT TO DAY NURSE FOR CONTINUITY OF CARE. PATIENT STABLE AND NOT IN ANY DISTRESS. SIGNING OFF.
[2022-07-31 08:00] VITALS: BP 164/68
--- NOTE | 2022-07-31 08:52 | NUR ---
RECEIVED ON SUPPLEMENTAL OXYGEN AT 3 LPM VIA NC SATURATION 99% POST HHN THERAPY TITRATED FIO2 TO 2 LPM TERESA/SHALONDA NOTIFIED OXYGEN TITRATION AND OROPHARYNX SUCTIONING
[2022-07-31] MEDS: MIDODRINE 5 MG TAB PO SCH ×3 (09:00→17:00)
--- NOTE | 2022-07-31 10:05 | NUR ---
midodrine dose not given due to blood pressure being 128/69. medication wasted
[2022-07-31] MEDS: POLYETHYLENE GLYCOL 17 GM/PKT PO SCH ×2 (10:09→21:49)
[2022-07-31] MEDS: AMIODARONE 200 MG TAB PO SCH (10:14)
--- NOTE | 2022-07-31 11:14 | NUR ---
patient lying comfortably in bed. No distress noted. will continue to monitor.
[2022-07-31 12:00] VITALS: BP 99/59
--- NOTE | 2022-07-31 12:17 | NUR ---
Bladder Scan done at 11:45 showing 450cc of urine. Straight cath performed at 12:00 and retrieved 405cc of nahun colored clear urine. patient tolerated well.
[2022-07-31] MEDS: GAUZE TP SCH (14:00)
[2022-07-31] MEDS: Z-GUARD PASTE TP SCH (14:05)
--- NOTE | 2022-07-31 14:27 | NUR ---
RESTING WELL NO DISTRESS NOTED EQUAL CHEST RISE INTERMITTENT STRONG PRODUCTIVE COUGH OROPHARYNGEAL SUCTION FOR MODERATE THIN YELLOW SECRETIONS
--- NOTE | 2022-07-31 14:39 | NUR ---
Spoke with Sabrina in dietary at ext [phone] to clarify tube feeding and h2o flushes. tubefeeding should be at a rate of 65mls/hr and h20 flushes are at 250cc Q6HR. corrected infusion is now infusing.
[2022-07-31 16:00] VITALS: BP 110/71
--- NOTE | 2022-07-31 17:08 | NUR ---
1700 MEDICATION PROAMATINE NOT GIVEN PER PARAMETERS, BLOOD PRESSURE WAS 127/73
[2022-07-31] MEDS: cefTRIAXone 2,000 MG in DEXTROSE 5% 100 ML IV SCH (17:15)
[2022-07-31 20:00] VITALS: BP 120/71
--- NOTE | 2022-07-31 20:54 | NUR ---
I/O CATHETER AVAILABILITY PROBLEMATIC. NONE APPEAR AVAILABLE. CALLED KISHA HERNANDEZ, (SANDWICH ARTIST FOR ATTENDING) AND REPORTED CONDITION OF PT (BLADDER SCAN 430ML, NO I/O CATHS). DR IRELAND ORDERED SHAH PLACEMENT - ORDER INPUT, F/C SET REMOVED FROM PYXIS, AND PLACED ON PT W/O DIFFICULTY. F/C DRAINING CLEAR, YELLOW URINE IN ADEQUATE AMOUNTS. PT TOLERATED VERY WELL.
--- NOTE | 2022-07-31 21:45 | NUR ---
SUCTION CANISTER COMPLETELY FULL - REPLACED W NEW CANISTER. PT SUCTIONED AND PM MEDS ADMINISTERED. PT GAVE UP SOME THICK WHITE PHLEGM. SHAH CONTINUES TO YIELD CLEAR YELLOW URINE.
[2022-08-01] VITALS: BP 114/71
[2022-08-01] MEDS: HYDRAGUARD CREAM TP SCH ×2 (01:00→13:00)
[2022-08-01] MEDS: ALBUTEROL SULFATE/IPRATROPIU 3 ML SOL IH SCH ×4 (01:51→20:11)
--- NOTE | 2022-08-01 07:08 | NUR ---
RECEIVED ON SUPPLEMENTAL OXYGEN AT 2 LPM VIA NC; IMTERMITTENT PRODUCTIVE COUGH DURING HHN THERAPY; OROPHARYNGEAL SUCTION FOR LARGE THIN PALE YELLOW SECRETIONS AIRWAY PATENT
--- NOTE | 2022-08-01 07:20 | NUR ---
REPORT RECEIVED FROM PATIENT SERVICE TECHNICIAN PST RN. CARE TAKEN OVER. VITALS STABLE, PATIENT IN NO APPARENT PAIN OR DISTRESS. SLEEPING. TUBE FEEDS INFUSING WITH WATER FLUSHING. WILL CONTINUE TO MONITOR.
[2022-08-01 08:00] VITALS: BP 104/60
[2022-08-01] MEDS: POLYETHYLENE GLYCOL 17 GM/PKT PO SCH ×2 (09:11→21:06)
[2022-08-01] MEDS: AMIODARONE 200 MG TAB PO SCH (09:12)
[2022-08-01] MEDS: MIDODRINE 5 MG TAB PO SCH ×3 (09:12→16:50)
[2022-08-01 12:00] VITALS: BP 115/65
--- NOTE | 2022-08-01 12:01 | NUR ---
RN SPOKE WITH RYLAND, COORDINATOR FOR [employer] ([phone]). ORDERS FOR HOME HEALTH AND ENTERAL FEEDINGS FAXED TO HER AT [phone], RYLAND STATES THAT SHE IS UNABLE TO ARRANGE ENTERAL SUPPLIES OR PUMP UNTIL WEDNESDAY BECAUSE OF THE HOLIDAY WEEKEND. RN THEN SPOKE WITH THE PATIENTS DAUGHTER KEE TO DISCUSS ARRANGEMENTS, EXPLAINED THE DELAY IN FINALIZING DELIVERY OF SUPPLIES. KEE IS IN AGREEMENT WITH PLAN MOVING FORWARD AND UNDERSTANDS DISCHARGE DELAY.
[2022-08-01] MEDS: GAUZE TP SCH (13:00)
--- NOTE | 2022-08-01 13:24 | NUR ---
PATIENT ARCHANA OMER IN ROOM 108b- LAB CALLED A CRITICAL RESULT OF KLEBSIELLA PNA WITH MULTI DRUG RESISTANT ORGANISMS. . SENT MESSAGE ABOUT CRITICAL RESULT TO DR KISHA IRELAND.
--- NOTE | 2022-08-01 13:32 | NUR ---
INTERMITTENT PRODUCTICE COUGH DURING HHN THERAPY OROPHARYNGEAL SUCTION FOR COPIOUS THIN PALE YELLOW SECRETIONS AIRWAY PATENT
[2022-08-01] MEDS: Z-GUARD PASTE TP SCH (15:29)
--- NOTE | 2022-08-01 15:30 | NUR ---
1300 PROAMATINE WAS GIVEN PER ORDER. DID NOT SAVE SO UNABLE TO ENTER MANUALLY, BUT MED WAS GIVEN PER ORDER.
[2022-08-01 16:00] VITALS: BP 113/67
[2022-08-01] MEDS: cefTRIAXone 2,000 MG in DEXTROSE 5% 100 ML IV SCH (17:01)
--- NOTE | 2022-08-01 19:30 | NUR ---
RECEIVED REPORT FROM DAY SHIFT NURSE TERESA FOR CONTINUITY OF CARE. PATIENT IS A&O X1. PATIENT IS ON ROOM AIR, BREATHING IS LABORED WITH SEVER MUCUS. PATIENT'S IV IS A 22G RFA, RUNNING NS 5ML TKO. PATIENT IS LYING SEMI-FOWLERS IN BED. FEEDING IS RUNNING JEVITY 1.2 AT 65ML/HR. BED IS IN LOWEST POSITION, WHEELS LOCKED, CALL LIGHT IN PLACE. WILL CONTINUE TO OBSERVE PATIENT.
[2022-08-01 20:00] VITALS: BP 123/60
[2022-08-02] VITALS: BP 129/63
--- NOTE | 2022-08-02 | NUR ---
2100 MEDICATIONS WERE ADMINISTERED TO PATIENT. PATIENT TOLERATED WELL. PATIENT HAS BEEN SUCTIONED 5 TIMES, FOUR TIMES BY ME AND ONCE BY RT LATIA; LATIA ALSO GAVE PATIENT A BREATHING TREATMENT. PATIENT IS SATURATING BETWEEN 92-94%. WILL CONTINUE TO OBSERVE PATIENT.
[2022-08-02] MEDS: ALBUTEROL SULFATE/IPRATROPIU 3 ML SOL IH SCH ×3 (00:16→20:11)
[2022-08-02] MEDS: HYDRAGUARD CREAM TP SCH ×2 (01:00→13:31)
[2022-08-02 04:00] VITALS: BP 116/74
--- NOTE | 2022-08-02 04:00 | NUR ---
PATIENT WAS CHANGED AND CLEANED WITH THE ASSISTANCE OF NURSE MARTÍNEZ. PATIENT HAD ONE BM; BM WAS ON PATIENT'S DRESSING LOCATED ON HIS COCCYX. WOUND WAS CLEANED AND A NEW DRESSING WAS APPLIED. PATIENT TOLERATED CLEANING WELL; BUT CONTINUES TO REQUIRE SUCTIONING FOR SECRETIONS. PATIENT HAS BEEN SUCTIONED 3 MORE TIMES. WILL CONTINUE TO OBSERVE PATIENT.
--- NOTE | 2022-08-02 07:30 | NUR ---
ENDORSED CARE OF PATIENT TO DAY SHIFT NURSE ADZE FOR CONTINUITY OF CARE. PATIENT IS STABLE.
[2022-08-02 08:00] VITALS: BP 126/67
[2022-08-02] MEDS ORDERED: LORazepam 0.5 MG TAB GT PRN (09:20)
--- NOTE | 2022-08-02 09:50 | NUR ---
PATIENT APPEARS RESTLESS. O2 SAT WAS ON 86-87% ON RA . RT PLACED PATIENT ON O2 VIA NC @ 4LPM SATING 93%. ZYPREXA IM GIVEN FOR AGITATION. SAFETY MEASURES MAINTAINED. SUCTIONED MULTIPLE TIMES. WILL CONTINUE TO MONITOR.
[2022-08-02] MEDS: POLYETHYLENE GLYCOL 17 GM/PKT PO SCH ×2 (09:51→21:30)
[2022-08-02] MEDS: AMIODARONE 200 MG TAB PO SCH (09:51)
[2022-08-02] MEDS: MIDODRINE 5 MG TAB PO SCH ×3 (09:51→17:50)
[2022-08-02] MEDS: OLANZapine 10 MG VIAL IM PRN (09:51)
[2022-08-02 12:00] VITALS: BP 121/54
[2022-08-02] MEDS ORDERED: COLISTIMETHATE SODIUM 150 MG VIAL IH SCH (12:10)
[2022-08-02] MEDS: ACETAMINOPHEN 325 MG TAB PO PRN (13:12)
--- NOTE | 2022-08-02 13:20 | NUR ---
PATIENT DAUGHTER AT BEDSIDE AND CHECKED PATIENT TEMP 98.2. PATIENT DAUGHTER STATES ANOTHER RN CHECKED PATIENT TEMP WITH 104 AND GAVE TYLENOL. PRIMARY RN AND CHARGE NURSE RECHECKED TEMP 98.7. CHANGED AND REPOSTIONED. PATIENT HAD LARGE BM. SUCTIONED MULTIPLE TIMES. WILL CONTINUE TO MONITOR.
[2022-08-02] MEDS: Z-GUARD PASTE TP SCH (13:31)
[2022-08-02] MEDS: GAUZE TP SCH (13:31)
[2022-08-02] MEDS: COLISTIMETHATE SODIUM 75 MG in NACL 0.9% 100 ML IV SCH (14:12)
[2022-08-02 16:00] VITALS: BP 124/62
[2022-08-02] MEDS: cefTRIAXone 2,000 MG in DEXTROSE 5% 100 ML IV SCH (18:02)
--- NOTE | 2022-08-02 19:30 | NUR ---
RECEIVED REPORT FROM DAY SHIFT NURSE NIXON FOR CONTINUITY OF CARE. PATIENT IS A&O X1. PATIENT IS ON NC 4L, BREATHING IS NORMAL WITH SYMMETRICAL RISE AND FALL OF CHEST. PATIENT'S IV IS A 22G RFA, RUNNING NS 5ML TKO. PATIENT IS LYING SEMI-FOWLERS IN BED, SLEEPING. FEEDING IS RUNNING JEVITY 1.2 AT 65ML/HR. BED IS IN LOWEST POSITION, WHEELS LOCKED, CALL LIGHT IN PLACE. WILL CONTINUE TO OBSERVE PATIENT.
[2022-08-02 20:00] VITALS: BP 110/51
--- NOTE | 2022-08-02 20:16 | NUR ---
RECEIVED PT ON 4L NC WITH SPO2 100% PT BILAT RHONCHI. PT ASLEEP WITH NO SIGNS OF RESP DISTRESS. SX SMALL AMOUNT OF THICK ORAL SECRETIONS. LOWERED PT O2 TO 2L NC PT SPO2 REMAINING AT 100%
[2022-08-03] VITALS: BP 97/62
--- NOTE | 2022-08-03 | NUR ---
2100 MEDICATIONS WERE GIVEN, PATIENT TOLERATED WELL. PATIENT HAS BEEN COUGHING OFF AND ON OVER THE PAST THREE HOURS. PATIENT HAS BEEN SUCTIONED MULTIPLE TIMES BUT MUCUS CONTINUES TO BE PRESENT. PATIENT'S SATURATION IS CURRENTLY AT 94%. WILL CONTINUE TO OBSERVE PATIENT.
[2022-08-03] MEDS: HYDRAGUARD CREAM TP SCH ×2 (01:56→13:05)
[2022-08-03] MEDS ORDERED: COLISTIMETHATE SODIUM 150 MG VIAL ONE (01:58)
[2022-08-03] MEDS: COLISTIMETHATE SODIUM 75 MG in NACL 0.9% 100 ML IV SCH ×2 (02:15→14:00)
[2022-08-03 04:00] VITALS: BP 122/62
--- NOTE | 2022-08-03 04:00 | NUR ---
PATIENT WOKE UP AROUND 0300. PATIENT IS STILL COUGHING OFF AND ON. PATIENT CONTINUES TO BE SUCTIONED FREQUENTLY. SATURATION IS 93%. WILL CONTINUE TO OBSERVE PATIENT.
--- NOTE | 2022-08-03 07:00 | NUR ---
PATIENT'S FEEDING WAS CHANGED AT 0500. AFTERWARDS PATIENT WAS CLEANED, PATIENT HAD SMALL AMOUNT OF BM, BUT LIQUID. DRAW SHEET AND CHUCKS WERE CHANGED WITH THE ASSISTANCE OF NURSE STALLINGS. AFTER CHANGE WAS DONE IT WAS NOTICED PATIENT'S IV HAD COME OUT. MULTIPLE ATTEMPTS WERE MADE BY NURSE OSBORNE AND CHARGE NURSE HIRAL; BUT AN IV WAS ABLE TO BE PLACED INTO PATIENT. DURING IV ATTEMPTS PATIENT'S DAUGHTER CALLED FOR AN UPDATE ON HER FATHER. SPOKE TO PATIENT'S DAUGHTER ABOUT NIGHT. DAUGHTER STATED SHOULD BE IN LATER TODAY AND THANKED ME FOR CARING FOR HER FATHER. WILL ENDORSE TO DAY SHIFT NURSE.
[2022-08-03] MEDS: ALBUTEROL SULFATE/IPRATROPIU 3 ML SOL IH SCH ×3 (07:13→19:16)
--- NOTE | 2022-08-03 07:30 | NUR ---
ENDORSED PATIENT TO DAY SHIFT NURSE ADZE FOR CONTINUITY OF CARE. PATIENT IS STABLE.
[2022-08-03 08:00] VITALS: BP 105/60
--- NOTE | 2022-08-03 08:00 | NUR ---
RECEIVED PATIENT IN BED, APPEARS RESTLESS. ON O2 @ 2LPM VIA NC. TOLERATING WELL. CHANGED AND REPOSITIONED. INITIAL ASSESSMENT DONE AND DOCUMENTED. SUCTIONED SECRETIONS WITH YANKEUR WITH MODERATE AMOUNT OF THICK SECRETIONS NOTED. MOUTH CARE RENDERED. SAFETY MEASURES MAINTAINED. WILL CONTINUE TO MONITOR.
[2022-08-03] MEDS: MIDODRINE 5 MG TAB PO SCH ×3 (09:55→17:00)
[2022-08-03] MEDS: AMIODARONE 200 MG TAB PO SCH (09:55)
[2022-08-03] MEDS: POLYETHYLENE GLYCOL 17 GM/PKT PO SCH ×2 (09:55→21:23)
[2022-08-03 12:00] VITALS: BP 134/60
[2022-08-03] MEDS: GAUZE TP SCH (13:05)
[2022-08-03] MEDS: Z-GUARD PASTE TP SCH (13:06)
[2022-08-03 16:00] VITALS: BP 115/64
--- NOTE | 2022-08-03 16:49 | NUR ---
08/03/22 RD FOLLOW UP COMPLETED. PLEASE REFER TO NUTRITION ASSESSMENT UNDER CARE ACTIVITY FOR ESTIMATED NUTRITIONAL NEEDS. 1. CONTINUE WITH JEVITY 1.2 @65 ML/HR, FWF 250 Q6H PT TOLERATES. 2. CONTINUE WITH MARCELO BID. - JEVITY 1.2 YURY WILL PROVIDE 1560 TOTAL VOLUME CONSISTING OF 1872 KCAL, 86 GM PROTEIN, AND 1259 ML FREE WATER. WITH MARCELO BID, THIS WILL MEET 93% ESTIMATED ENERGY NEEDS AND 100% ESTIMATED PROTEIN NEEDS; ADEQUATE. 3. MONITOR GASTRIC RESIDUALS. 4. RD TO FOLLOW-UP IN 3-5 DAYS PATIENT IS MODERATE RISK. JUSTICE CAMPA RD
[2022-08-03] MEDS: cefTRIAXone 2,000 MG in DEXTROSE 5% 100 ML IV SCH (18:20)
--- NOTE | 2022-08-03 19:15 | NUR ---
RECEIVED PATIENT LYING ON THE BED, HOB ELEVATED, ON O2 @2lpm NC, NO SIGNS OF DISTRESS NOTED, HAS SHAH CATHETER DRAINING YELLOW COLORED URINE TO BAG. PATIENT HAS TUBE FEEDING OF JEVITY 1.2 YURY TO RUN 65ML/HR, FLUSH WITH 250 CC H2O Q6HRS. BED IN LOW AND LOCKED POSITION.
[2022-08-03 20:00] VITALS: BP 115/61
[2022-08-04] VITALS (7 sets, daily range): BP systolic 106–139; BP diastolic 57–68
[2022-08-04] MEDS ORDERED: SUCCINYLCHOLINE CHLORIDE 200 MG/10 ML VIAL IVP ONE
[2022-08-04] MEDS ORDERED: ETOMIDATE 20 MG/10 ML VIAL IVP ONE
--- NOTE | 2022-08-04 00:05 | NUR ---
TUBE FEEDING COMPLETED, NEW BAG HANG. NO SIGNS OF PAIN/DISCOMFORT NOTED, NO SIGNS OF DISTRESS NOTED. SAFETY PRECAUTIONS IN PLACE.
[2022-08-04 01:24] LABS: BASOPHILS # (AUTO) 0.2 K/uL (0.00-0.22); BASOPHILS % (AUTO) 0.6 % (0.0-2.0); EOSINOPHILS # (AUTO) 0.3 K/uL (0-0.4); EOSINOPHILS % (AUTO) 1.1 % (0.0-4.0); HEMATOCRIT 30.1 % (36-52); LYMPHOCYTES % (AUTO) 8.3 % (20.5-51.1); MEAN CORPUSCULAR HEMOGLOBIN 32 pg (27-31); MEAN CORPUSCULAR HGB CONC 33 g/dL (33-37); MONOCYTES # (AUTO) 1.2 K/uL (0.8-1.0); MONOCYTES % (AUTO) 4.8 % (1.7-9.3); NEUTROPHILS # (AUTO) 20.5 K/uL (1.8-7.7); NEUTROPHILS % (AUTO) 85.2 % (42.2-75.2); PLATELET COUNT (AUTO) 441 K/uL (140-450); RED BLOOD CELL COUNT(AUTO) 3.17 MIL/uL (4.20-6.10); RED CELL DISTRIBUTION WIDTH 15.1 % (11.6-13.7)
[2022-08-04] MEDS: HYDRAGUARD CREAM TP SCH ×2 (01:59→13:54)
[2022-08-04] MEDS: COLISTIMETHATE SODIUM 75 MG in NACL 0.9% 100 ML IV SCH ×2 (02:03→15:00)
[2022-08-04] MEDS: ALBUTEROL SULFATE/IPRATROPIU 3 ML SOL IH SCH ×3 (02:05→19:37)
--- NOTE | 2022-08-04 02:05 | NUR ---
DUE COLISTIMETHATE SODIUM GIVEN ORDERED. ALL SAFETY PRECAUTIONS IN PLACE. WILL CONTINUE TO MONITOR THE PATIENT.
--- NOTE | 2022-08-04 04:05 | NUR ---
MORNING CARE DONE. PATIENT TOLERATED WELL. NO SIGNS OF DISTRESS NOTED. SAFETY PRECAUTIONS IN PLACE. WILL CONTINUE TO MONITOR THE PATIENT.
--- NOTE | 2022-08-04 07:27 | NUR ---
ENDORSED PATIENT TO NURSE ADZ FOR CONTINUITY OF CARE. NEEDS MET THROUGHOUT THE SHIFT. PATIENT IN STABLE CONDITION.
[2022-08-04] MEDS: AMIODARONE 200 MG TAB PO SCH (08:58)
[2022-08-04] MEDS: MIDODRINE 5 MG TAB PO SCH ×3 (08:58→21:10)
[2022-08-04] MEDS: POLYETHYLENE GLYCOL 17 GM/PKT PO SCH ×2 (08:59→21:05)
[2022-08-04] MEDS ORDERED: COMMUNICATION ORDER MC SCH (10:40)
--- NOTE | 2022-08-04 10:45 | NUR ---
PULSE CHECK ON PT. TALKED TO DAUGHTER THAT HE GOT HIS TX THIS MORNING AND WE WAS NTS. EXPLAINED I WILL SXN LATER IF PT NEEDS IT BUT WE CANT SXN IF IT IS NOT INDICATED TP PREVENT TRAUMA TO PT. DAUGHTER UNDERSTOOD. RN MADE AWARE
[2022-08-04] MEDS: PIPERACILLIN/TAZOBACTAM 3.375 GM in DEXTROSE 5% 50 ML IV SCH ×2 (13:54→21:11)
[2022-08-04] MEDS: GAUZE TP SCH (13:54)
[2022-08-04] MEDS: Z-GUARD PASTE TP SCH (13:54)
[2022-08-04] MEDS: OLANZapine 10 MG VIAL IM PRN (16:23)
--- NOTE | 2022-08-04 16:35 | NUR ---
PLACED INFRARED LIGHT ON PATIENT'S CHEST. MILD REDNESS NOTEDAND WARM TO TOUCH. INSTRUCTED NOT TO PLACE INFRARED LIGHT DIRECTLY TO SKIN DUE TO POSSIBLE SKIN IRRITATION. PATIENT STARTED GETTING AGITATED, O2 SAT ON 86%. RT AT BEDSIDE. PLACED PATIENT ON NON-REBREATHER MASK. ZYPREXA GIVEN ORDERED FOR SEVERE AGITATION. BREATHING TREATMENT WAS GIVEN BY RT. WILL MONITOR CLOSELY.
[2022-08-04] MEDS ORDERED: LORazepam 2 MG/ML VIAL IM/IVP SCH (16:51)
[2022-08-04] MEDS ORDERED: PROPOFOL 1000 MG/100 ML PREMIX 100 ML IV ONE (17:33)
[2022-08-04] MEDS ORDERED: PROPOFOL 1000 MG/100 ML PREMIX 100 ML IV PRN (17:35)
--- NOTE | 2022-08-04 18:12 | NUR ---
1625: RN CALLED RT DUE TO PT DESATING TO THE 80S. RT WENT TO BEDSIDE INCREASED O2 TO 100% WITH A NRM. PT WAS UP AND DOWN ON SATURATION. PTS BECAME TACHYPNEIC IN THE 40S. RN CALLED DR TO GET ORDER FOR BIPAP. PT WAS PLACED ON SETTING 16/10 RR14 FIO2 100%. PT WAS NOT TOLERATING BIPAP WELL AND SATURATIONS CONTINUED TO LOWER. ER DR WAS CALLED TO COME ASSESS PT FURTHER. ER DR DECIDED TO INTUBATE. PT WAS INTUBATED WITH 7.5 ETT PLACEMENT AT 22 CM @ LL. COLOR CHANGE ON CO2 DETECTER, CONDENSATION IN THE ETT, BILATERAL BREATHE SOUNDS. PT WAS PLACED ON VENT SETTINGS AC 16 450 +7 100%. WILL CONT TO MONITOR PT. WAITING TO TRANSFER PT TO ICU.
--- NOTE | 2022-08-04 18:30 | NUR ---
RECEIVED PT. FROM TELE RM 108B S/P INTUBATION VENT SETTING AC/VC 100% FIO2 VT 450 RATE 16 PEEP 7.O2 SAT 91% ,IV SITE GATE 22 ONLEFT HAND AND #18 ON RT WRIST. AT NTHE TIME PT IS UNRESPONSIVE
[2022-08-04] MEDS ORDERED: NOREPINEPHRINE 4 MG/4 ML VIAL IV ONE (18:41)
--- NOTE | 2022-08-04 18:43 | NUR ---
AT APPROXIMATELY 1635 PT DESATING TO THE 80'S. RT WAS CALLED AND AT BEDSIDE. PT WAS UP AND DOWN ON SATURATION. PATIENT BECAME TACHYPNEIC IN THE 40S. DR. SPRINGER WAS NOTIFIED AND ORDERED TO PLACE PATIENT ON BIPAP. PT WAS NOT TOLERATING BIPAP AND SATURATIONS CONTINUED TO DECREASE. ER MD WAS CALLED AND INTUBATED PATIENT AT 1729. AT 1740 STARTED ON PROPOFOL PER PROTOCOL. PATIENT WAS TRANSFERRED TO ICU BED 8 AT 1835. REPORT GIVEN EARNEST LIZ AT BEDSIDE.
--- NOTE | 2022-08-04 18:50 | NUR ---
DR. IRELAND NOTIFIED REGARDING PT. [id number] AND TRANSFER TO ICU HE WILL CALL DR. GARCIA THE HIDE MEASURING MACHINE OPERATOR.
--- NOTE | 2022-08-04 18:50 | NUR ---
PAGED MEDICAL STAFF MANAGER PHYSICIAN DR. IRELAND REGARDING PT STATUS AND TRANSFER TO ICU. BP 76/43. ORDERS FOR LEVOPHED AND PICC INSERTION RECEIVED.
--- NOTE | 2022-08-04 19:00 | NUR ---
HAS PROPOFOL INFUSING ON LEFT HAND AT 25 MCG/KG/MIN AND LEVOPHED ON RIGHT WRISTAT 10 MCG/MIN.
[2022-08-04] MEDS: NOREPINEPHRINE 4 MG in DEXTROSE 5% 250 ML IV PRN (19:26)
[2022-08-04] MEDS ORDERED: NACL 0.9% 1,000 ML IV SCH (19:50)
[2022-08-04] MEDS ORDERED: MIDAZOLAM MDV 50 MG in NACL 0.9% 40 ML IV PRN (19:50)
[2022-08-04] MEDS ORDERED: NACL 0.9% 1,000 ML IV ONE (19:50)
[2022-08-04] MEDS: metroNIDAZOLE 500 MG/NS PREMIX 100 ML IV SCH (21:17)
[2022-08-05] VITALS (22 sets, daily range): BP systolic 85–125; BP diastolic 55–76
[2022-08-05] MEDS ORDERED: ACETAMINOPHEN 100 ML IV PRN (00:35)
[2022-08-05] MEDS: ALBUTEROL SULFATE/IPRATROPIU 3 ML SOL IH SCH ×4 (01:22→19:48)
[2022-08-05] MEDS: HYDRAGUARD CREAM TP SCH ×2 (01:52→12:46)
[2022-08-05] MEDS: fentaNYL citrate 1 MG in NACL 0.9% 80 ML IV PRN ×2 (02:25→06:42)
[2022-08-05] MEDS: ACETAMINOPHEN 100 ML IV PRN (02:32)
[2022-08-05] MEDS: NOREPINEPHRINE 4 MG in DEXTROSE 5% 250 ML IV PRN ×3 (02:42→16:12)
[2022-08-05] MEDS ORDERED: COLISTIMETHATE SODIUM 150 MG VIAL ONE (03:08)
--- NOTE | 2022-08-05 03:09 | NUR ---
PATIENT STABLE VITALS SIGNS IN NORMAL LIMITS ST ON MONITOR DUE TO HYPERTERMIA I CALLTHE DOCTOR AND HE GAVE ME OFIRMEV NOW TEMPERATURE WENT DOWN TO 98.8 AFTER THE ADMINISTRATION OF IT
[2022-08-05] MEDS: COLISTIMETHATE SODIUM 75 MG in NACL 0.9% 100 ML IV SCH ×2 (03:14→14:52)
[2022-08-05] MEDS: metroNIDAZOLE 500 MG/NS PREMIX 100 ML IV SCH ×3 (05:00→21:21)
[2022-08-05 05:46] LABS: BASOPHILS # (AUTO) 0.1 K/uL (0.00-0.22); BASOPHILS % (AUTO) 0.3 % (0.0-2.0); EOSINOPHILS # (AUTO) 0.2 K/uL (0-0.4); EOSINOPHILS % (AUTO) 0.9 % (0.0-4.0); HEMATOCRIT 32.2 % (36-52); HEMOGLOBIN 10.6 g/dL (12.0-18.0); LYMPHOCYTES # (AUTO) 1.3 K/uL (2.0-11.5); MEAN CORPUSCULAR HEMOGLOBIN 31 pg (27-31); MEAN CORPUSCULAR HGB CONC 33 g/dL (33-37); MEAN CORPUSCULAR VOLUME 94.6 fL (80-94); MONOCYTES # (AUTO) 1.1 K/uL (0.8-1.0); MONOCYTES % (AUTO) 4.1 % (1.7-9.3); NEUTROPHILS % (AUTO) 89.7 % (42.2-75.2); PLATELET COUNT (AUTO) 525 K/uL (140-450); RED BLOOD CELL COUNT(AUTO) 3.41 MIL/uL (4.20-6.10); RED CELL DISTRIBUTION WIDTH 15.5 % (11.6-13.7)
[2022-08-05] MEDS: PIPERACILLIN/TAZOBACTAM 3.375 GM in DEXTROSE 5% 50 ML IV SCH ×3 (06:15→21:22)
[2022-08-05 06:17] LABS: ANION GAP 13.1 (8-16); ASPARTATE AMINOTRANSFERASE 22 U/L (15-37); CARBON DIOXIDE 30.1 mmol/L (21-32); CHLORIDE 98 mmol/L (98-107); CREATININE 1.5 mg/dL (0.6-1.3); GLUCOSE 152 mg/dL (74-106); POTASSIUM 4.2 mmol/L (3.5-5.1); SODIUM SERUM 137 mmol/L (136-145); TOTAL BILIRUBIN 0.8 mg/dL (0.0-1.0); UREA NITROGEN, BLOOD 33 mg/dL (7-18)
--- NOTE | 2022-08-05 06:21 | NUR ---
PATIENT STABLE VITALS SIGNS IN NORMAL LIMITS SRT 106 ON MONITORS PIC[address]INE WAS PLACE BY JARVIS LIZ BATH AND ORAL CARE WAS GIVE I AM HOLDING THE FEEDING TUBE RESIDUALS 250
[2022-08-05 06:50] LABS: WHITE BLOOD COUNT (AUTO) 26.7 K/uL (4.8-10.8)
--- NOTE | 2022-08-05 07:17 | NUR ---
RECEIVED ON A PB 840 VENTILATOR PLUGGED INTO RED OUTLET TOLERATING WELL WITHOUT ADVERSE REACTIONS NOTED TO AN ENDOTRACHEAL TUBE #7.3 SECURED AT 23cm TEETH/GUM LINE WITH AN ANCHOR FAST CUFF PRESSURE CHECKED NOTED AMBU BAG AT BEDSIDE STABLE GOOD CHEST RISE ENDOTRACHEAL SUCTION FOR COPIUOS THIN PALE YELLOW SECRETIONS AIRWAY PATENT
--- NOTE | 2022-08-05 07:30 | NUR ---
RECEIVED PT SEDATED, ETT TO VENT SETTINGS AC VC TV 450 RATE 16 PEEP 7 FIO2@70%. SINUS TACH ON MONITOR. OGTUBE INTACT AND CLAMPED. RECEIVED REPORT TO LEAVE OG-TUBE IN PLACE. G-TUBE INTACT AND PATENT WITH FEEDING OFF. RECEIVED ENDORSEMENT THAT GASTRIC RESIDUAL WAS HIGH. CHECKED RESIDUAL WITH NO GASTRIC RESIDUAL. STARTED TUBE FEEDING MD ORDERED VIA G-TUBE. SHAH CATHETER INTACT AND DRAINING TO BSD. PERIPHERAL IV RIGHT WRIST 18 GAUGE SALINE LOCKED. PERIPHERAL IV LEFT HAND 22 GAUGE SALINE LOCKED. PICC LINE ON RIGHT UPPER ARM INTACT AND PATENT INFUSING FENTANYL@0.5MCG/KG/HR, LEVOPHED @10MCG/MIN, AND NS @10ML/HR. SAFETY PRECAUTIONS IN PLACE.
[2022-08-05] MEDS: AMIODARONE 200 MG TAB PO SCH (08:19)
[2022-08-05] MEDS: POLYETHYLENE GLYCOL 17 GM/PKT PO SCH ×2 (08:19→21:21)
[2022-08-05] MEDS: MIDODRINE 5 MG TAB PO SCH ×3 (08:31→16:14)
--- NOTE | 2022-08-05 08:49 | NUR ---
DR. SPRINGER AT BEDSIDE EXAMINING PATIENT. REPORTED ELEVATED WBC TO DR. SPRINGER AND STATED WE CONTACTED ID DR. DR. SPRINGER ALSO CONTACTED ID DOCTOR AND STATED ID DOCTOR STARTED ANTIBIOTIC AND CONTINUE WITH TREATMENT. PER DR. SPRINGER, OKAY TO DISCONTINUE OG-TUBE.
--- NOTE | 2022-08-05 10:55 | NUR ---
STABLE RESTING COMFORTABLY GOOD CHEST RISE AND AERATION THROUGHOUT BILATERAL LUNG BLOOM AIRWAY PATENT
--- NOTE | 2022-08-05 11:03 | NUR ---
ROUTINE ABG DONE NO ADVERSE REACTIONS NOTED
--- NOTE | 2022-08-05 11:13 | NUR ---
CALLED DR. MILIND COHEN AT [facility] [phone] TO REVIEWE ABG RESULTS; SOL/EXCHANGE TO PAGE DALIMENTIONEShashank LOCKE; PATIENT INFORMATION AND CALL BACK NUMBER GIVEN
--- NOTE | 2022-08-05 11:16 | NUR ---
SEEN AND EXAMINED BY DR. COHEN. NEW ORDER FOR SPUTUM AND BLOOD CULTURE.
[2022-08-05] MEDS: GAUZE TP SCH (12:49)
[2022-08-05] MEDS: Z-GUARD PASTE TP SCH (12:50)
--- NOTE | 2022-08-05 16:12 | NUR ---
DR. MILIND COHEN REVIEWED ABG RESULTS VORBO DR. COHEN: INCREASE MECHANICAL RATE TO 18 BPM; SATURATION GREATER THAN 90%
--- NOTE | 2022-08-05 16:20 | NUR ---
RESTING COMFORTABLY GOOD CHEST RISE INCREASED MECHANICAL RATE TO 18 BPM NESHA COHEN ENDOTRACHEAL SUCTION FOR MODERATE THIN YELLOW/GREEN SECRETIONS AIRWAY PATENT SPUTUM CULTURE OBTAINED FORWARDED TO LAB MAT/RN NOTIFIED OF RATE CHANGE AND SPUTUM SPECIMEN COLLECTION
--- NOTE | 2022-08-05 16:40 | NUR ---
RT AT BEDSIDE AND COLLECTED SPUTUM CULTURE.
--- NOTE | 2022-08-05 18:53 | NUR ---
ENDORSED TO RADIAGRAPH OPERATOR NURSE DI FOR CONTINUITY OF CARE.
--- NOTE | 2022-08-05 20:01 | NUR ---
RECEIVED REPORT FROM AM SHIFT. PATIENT WAS SEEN AND ASSESSED. PATIENT IS INTUBATED WITH ETT SIZE 7.5 AND SECURED WITH A BITING BLOCK ANCHOR-FAST 22cm @ TEETH. PATIENT IS ON VENTILATOR SUPPORT. VENTILATOR PLUGGED IN RED OUTLET. VENTILATOR ALARMS SET APPROPRIATELY AND AUDIBLE TO ENVIRONMENT. AMBU BAG AT BEDSIDE. HEAD OF BED GREATER THAN 30 DEGREES. NOTICED ADEQUATE BILATERAL CHEST RISE AND FALL. PATIENT IS IN NO RESPIRATORY DISTRESS AT THIS TIME.VENT SETTINGS: AC/VC RR 18, VT 450, PEEP 7, FiO2 45% WITH SPO2 OF 96%. BILATERAL BREATH SOUNDS ON AUSCULTATION; UPPER LOBES: COARSE CRACKLES, LOWER LOBES: COARSE CRACKLES. SX MODERATE AMOUNT OF YELLOW THICK SECRETIONS FROM ETT. SCHEDULE HHN TX GIVEN ORDERED. PT TOLERATED TX WELL WITH NO ADVERSE REACTION. WILL CONTINUE TO MONITOR PT.
[2022-08-05] MEDS ORDERED: NOREPINEPHRINE 4 MG/4 ML VIAL IV ONE (20:56)
--- NOTE | 2022-08-05 21:48 | NUR ---
PATIENT STABLE VITALS SIGNS IN NORMAL LIMITS SR 99 ON MINITORS SPO2 99 % FIO2 45 % ORALS CARE WAS PERFORMED
[2022-08-05] MEDS: NOREPINEPHRINE 8 MG in DEXTROSE 5% 250 ML IV PRN (22:42)
[2022-08-06] VITALS (28 sets, daily range): BP systolic 82–134; BP diastolic 52–76
--- NOTE | 2022-08-06 00:35 | NUR ---
PATIENT STABLE VITALS SIGNS IN NORMAL LIMITS ST 110 ON MONITOR VENT SET R 18 T 450 PEEP 7 FIO2 45 %
[2022-08-06] MEDS: HYDRAGUARD CREAM TP SCH ×2 (01:06→14:12)
[2022-08-06] MEDS: ALBUTEROL SULFATE/IPRATROPIU 3 ML SOL IH SCH ×4 (01:18→20:30)
[2022-08-06] MEDS: COLISTIMETHATE SODIUM 75 MG in NACL 0.9% 100 ML IV SCH ×2 (01:38→15:20)
[2022-08-06] MEDS: metroNIDAZOLE 500 MG/NS PREMIX 100 ML IV SCH ×3 (04:51→20:52)
[2022-08-06] MEDS: PIPERACILLIN/TAZOBACTAM 3.375 GM in DEXTROSE 5% 50 ML IV SCH ×3 (04:51→20:52)
[2022-08-06 06:07] LABS: BASOPHILS # (AUTO) 0.1 K/uL (0.00-0.22); BASOPHILS % (AUTO) 0.4 % (0.0-2.0); EOSINOPHILS # (AUTO) 0.4 K/uL (0-0.4); EOSINOPHILS % (AUTO) 2.2 % (0.0-4.0); HEMATOCRIT 30.2 % (36-52); HEMOGLOBIN 9.9 g/dL (12.0-18.0); LYMPHOCYTES # (AUTO) 0.9 K/uL (2.0-11.5); LYMPHOCYTES % (AUTO) 5.1 % (20.5-51.1); MEAN CORPUSCULAR HEMOGLOBIN 31 pg (27-31); MEAN CORPUSCULAR HGB CONC 33 g/dL (33-37); MEAN CORPUSCULAR VOLUME 94.6 fL (80-94); MONOCYTES # (AUTO) 0.7 K/uL (0.8-1.0); MONOCYTES % (AUTO) 3.9 % (1.7-9.3); NEUTROPHILS # (AUTO) 15.9 K/uL (1.8-7.7); NEUTROPHILS % (AUTO) 88.4 % (42.2-75.2); PLATELET COUNT (AUTO) 443 K/uL (140-450); RED BLOOD CELL COUNT(AUTO) 3.19 MIL/uL (4.20-6.10); RED CELL DISTRIBUTION WIDTH 14.8 % (11.6-13.7)
[2022-08-06 06:40] LABS: ALBUMIN 2.4 g/dL (3.4-5.0); ANION GAP 13.2 (8-16); ASPARTATE AMINOTRANSFERASE 20 U/L (15-37); CARBON DIOXIDE 28.3 mmol/L (21-32); CHLORIDE 99 mmol/L (98-107); CREATININE 1.2 mg/dL (0.6-1.3); GLUCOSE 174 mg/dL (74-106); POTASSIUM 4.5 mmol/L (3.5-5.1); SODIUM SERUM 136 mmol/L (136-145); TOTAL BILIRUBIN 0.4 mg/dL (0.0-1.0); UREA NITROGEN, BLOOD 30 mg/dL (7-18)
--- NOTE | 2022-08-06 06:49 | NUR ---
PATIENT STABLE VITALS SIGNS IN NORMAL LIMITS ST 110 ON MONITOR BATH AND ORAL CARE WAS PERFORMED NOT FEVER DURING THE NIGHT
[2022-08-06] MEDS: AMIODARONE 200 MG TAB PO SCH (09:14)
[2022-08-06] MEDS: MIDODRINE 5 MG TAB PO SCH ×3 (09:14→16:38)
[2022-08-06] MEDS: POLYETHYLENE GLYCOL 17 GM/PKT PO SCH ×2 (09:17→20:51)
[2022-08-06] MEDS: NOREPINEPHRINE 8 MG in DEXTROSE 5% 250 ML IV PRN (10:29)
[2022-08-06] MEDS: fentaNYL citrate 1 MG in NACL 0.9% 80 ML IV PRN (10:32)
[2022-08-06] MEDS: GAUZE TP SCH (14:11)
[2022-08-06] MEDS: Z-GUARD PASTE TP SCH (14:13)
--- NOTE | 2022-08-06 17:01 | NUR ---
08/06/22 RD FOLLOW UP COMPLETED PLEASE REFER TO NUTRITION ASSESSMENT UNDER CARE ACTIVITY FOR ESTIMATED NUTRITIONAL NEEDS. 1. CONTINUE JEVITY 1.2 @60 ML/HR GOAL RATE, FWF 50 Q6H TOLERATED. 2. CONTINUE WITH MARCELO BID. (PROVIDES 180 KCAL AND 5 GM PROTEIN DAILY) - WITH MARCELO BID, JEVITY 1.2 YURY @ 60 ML/HR GOAL RATE WILL PROVIDE 1440 ML TOTAL VOLUME, 1908 KCAL, 85 GM PROTEIN, AND 1316 ML FREE WATER MEETING 88% ESTIMATED ENERGY NEEDS AND 100% ESTIMATED PROTEIN NEEDS; ADEQUATE. 3. MONITOR GASTRIC RESIDUALS. 4. RD TO FOLLOW-UP IN 3-5 DAYS PATIENT IS MODERATE RISK. REVIEWED BY CHIKI COHEN RD
--- NOTE | 2022-08-06 19:10 | NUR ---
RECEIVED REPORT FROM DERRICK LIZ. PT IS IN STATED CONDITION. PT IS LYING SUPINE WITH HIS HEAD ELEVATED TO 35DEGREES. HE ETT TO VENT WITH CURRENT SETTINGOF AC/VCFIO2 35%, RATE 18, [id number] PEEP 7. HE'S A&OX0. HE'S REPORTED TO OPEN HIS EYES TO VOICE, BUT IT DIDN'T HAPPEN WHEN I CALLED HIS NAME. HE'S NOT ON RESTRAINT HE HAS A PILLOW BLOCKING ACCESS TO THE ETT. BUT HE'S NOT CONTRACTED REPORTED BUT HE'S VERY RIGID AND STRONG. ORAL CARE KIT OBTAINED AND ORAL CARE GIVEN WITH MINIMAL SECRETION ORALLY..HIS PEG TUBE RETURNED A SMALL RESIDUAL OF 10CC. HIS FEEDING RATE IS 60CC/HOUR WITH 50CC FREE WATER FLUSH Q6 HOURS HE HAS A SHAH IN PLACE DRAINING A SMALL AMT OF DARK YELLOW URINE.
--- NOTE | 2022-08-06 19:52 | NUR ---
closing note pt responds to voice, no tracking, or follow commands. NSR-ST 90-110 bpm, levophed titrated down 7 mcg/min to keep SBP > 90. Remains intubated with FI02 35%. Tolerates tube feeding at 60 ml/hr with minimal residual. Urine output 700 ml.
--- NOTE | 2022-08-06 20:30 | NUR ---
RECEIVED REPORT FROM AM SHIFT. PATIENT WAS SEEN AND ASSESSED. PATIENT IS INTUBATED WITH ETT SIZE 7.5 AND SECURED WITH A BITING BLOCK ANCHOR-FAST 22cm @ TEETH. PATIENT IS ON VENTILATOR SUPPORT. VENTILATOR PLUGGED IN RED OUTLET. VENTILATOR ALARMS SET APPROPRIATELY AND AUDIBLE TO ENVIRONMENT. AMBU BAG AT BEDSIDE. HEAD OF BED GREATER THAN 30 DEGREES. NOTICED ADEQUATE BILATERAL CHEST RISE AND FALL. PATIENT IS IN NO RESPIRATORY DISTRESS AT THIS TIME.VENT SETTINGS: AC/VC RR 18, VT 450, PEEP 7, FiO2 35% WITH SPO2 OF 97%. BILATERAL BREATH SOUNDS ON AUSCULTATION; UPPER LOBES: COARSE CRACKLES, LOWER LOBES: COARSE CRACKLES. SX MODERATE AMOUNT OF YELLOW THICK SECRETIONS FROM ETT. SCHEDULE HHN TX GIVEN ORDERED. PT TOLERATED TX WELL WITH NO ADVERSE REACTION. WILL CONTINUE TO MONITOR PT.
[2022-08-07] VITALS (30 sets, daily range): BP systolic 96–151; BP diastolic 57–86
[2022-08-07] MEDS: ALBUTEROL SULFATE/IPRATROPIU 3 ML SOL IH SCH ×4 (00:47→19:37)
--- NOTE | 2022-08-07 01:01 | NUR ---
TITRATED FiO2 FROM 35% TO 30%. SPO2 96%. PT TOLERATING WELL. RN NOTIFIED. WILL CONTINUE TO MONITOR PT.
[2022-08-07] MEDS: HYDRAGUARD CREAM TP SCH ×2 (01:35→13:13)
[2022-08-07] MEDS: COLISTIMETHATE SODIUM 75 MG in NACL 0.9% 100 ML IV SCH ×2 (01:35→14:17)
[2022-08-07] MEDS: PIPERACILLIN/TAZOBACTAM 3.375 GM in DEXTROSE 5% 50 ML IV SCH ×3 (05:20→20:27)
[2022-08-07] MEDS: metroNIDAZOLE 500 MG/NS PREMIX 100 ML IV SCH ×3 (05:21→20:28)
[2022-08-07] MEDS: NOREPINEPHRINE 8 MG in DEXTROSE 5% 250 ML IV PRN ×2 (05:34→23:09)
[2022-08-07 05:53] LABS: BASOPHILS % (AUTO) 0.5 % (0.0-2.0); EOSINOPHILS # (AUTO) 0.2 K/uL (0-0.4); HEMATOCRIT 44.1 % (36-52); HEMOGLOBIN 14.6 g/dL (12.0-18.0); LYMPHOCYTES # (AUTO) 0.5 K/uL (2.0-11.5); LYMPHOCYTES % (AUTO) 9.2 % (20.5-51.1); MEAN CORPUSCULAR HEMOGLOBIN 31 pg (27-31); MEAN CORPUSCULAR HGB CONC 33 g/dL (33-37); MEAN CORPUSCULAR VOLUME 94.1 fL (80-94); MONOCYTES # (AUTO) 0.4 K/uL (0.8-1.0); NEUTROPHILS # (AUTO) 4.1 K/uL (1.8-7.7); NEUTROPHILS % (AUTO) 79.3 % (42.2-75.2); PLATELET COUNT (AUTO) 240 K/uL (140-450); RED BLOOD CELL COUNT(AUTO) 4.69 MIL/uL (4.20-6.10); RED CELL DISTRIBUTION WIDTH 15.2 % (11.6-13.7); WHITE BLOOD COUNT (AUTO) 5.1 K/uL (4.8-10.8)
[2022-08-07 06:35] LABS: ALBUMIN 2.3 g/dL (3.4-5.0); ANION GAP 10.2 (8-16); ASPARTATE AMINOTRANSFERASE 12 U/L (15-37); CARBON DIOXIDE 29.7 mmol/L (21-32); CHLORIDE 102 mmol/L (98-107); GLUCOSE 207 mg/dL (74-106); POTASSIUM 3.9 mmol/L (3.5-5.1); SODIUM SERUM 138 mmol/L (136-145); TOTAL BILIRUBIN 0.3 mg/dL (0.0-1.0); UREA NITROGEN, BLOOD 23 mg/dL (7-18)
[2022-08-07] MEDS: MIDODRINE 5 MG TAB PO SCH ×3 (08:27→18:14)
[2022-08-07] MEDS: POLYETHYLENE GLYCOL 17 GM/PKT PO SCH ×2 (08:28→20:28)
[2022-08-07] MEDS: AMIODARONE 200 MG TAB PO SCH (08:28)
--- NOTE | 2022-08-07 11:00 | NUR ---
Pulmonary consult: seen by DR. garvey.updated current condition, stated titrate the Levophed drip and possible cpap trial tomorrow.
--- NOTE | 2022-08-07 11:37 | NUR ---
WOUND CARE RE-EVALUATION NOTE: WOUND ASSESSMENT DONE WITH PRIMARY RN SUDHAKAR, WOUNDS PHOTO OBTAINED. WOUNDS HAS IMPROVING AND RESPONDING TO CURRENT TREATMENT PLANS. POC DISCUSSED WITH PRIMARY RN AND CHARGE NURSE EARNEST. -LIPS AND ORAL MUCOSA DRY AND CLEAN. SKIN INTACT. -OLD HEALING S/P TRACH SITE. SMALL AMOUNT OF MUCOUS SECRETION NOTICE, NO ODOR, MARK-TRACH SKIN PINK AND INTACT -PRESSURE INJURY STAGE 3, SACROCOCCYX 4X5CM, SUPERFICIAL DEPTH, WOUND BED 100% PINK GRANULATION TISSUE, MOIST, NO ODOR, WOUND EDGE FLAT, MARK-WOUND SKIN MOIST SURROUNDING NON-BLANCHABLE REDNESS REMAIN - RIGHT AND LEFT POSTERIOR LATERAL UPPER BACK OLD ECCHYMOSIS, SKIN DISCOLORATION, LARGEST TO RIGHT SIDE 12X6CM, SKIN INTACT.
[2022-08-07] MEDS: fentaNYL citrate 1 MG in NACL 0.9% 80 ML IV PRN (13:01)
[2022-08-07] MEDS: Z-GUARD PASTE TP SCH (13:12)
[2022-08-07] MEDS: GAUZE TP SCH (13:13)
--- NOTE | 2022-08-07 15:00 | NUR ---
oral suction provided. thick cream secretion noted. keep hob elevated to prevent aspiration. patient had large soft ( greenish/ brown bm) good val care provided. turn and reposition with pillow support.
[2022-08-07] MEDS ORDERED: POLYVINYL ALCOHOL 1.4% OP 15 ML SOL OP PRN (17:55)
--- NOTE | 2022-08-07 17:58 | NUR ---
patient left eye is red with discharge cream yellow. cleanse. informed Dr. joel with new order received. noted and carried out.
--- NOTE | 2022-08-07 18:29 | NUR ---
received call from patient daughter( hermes ) updated patient current condition and poc. all questions, answered.
[2022-08-07] MEDS ORDERED: NOREPINEPHRINE 4 MG/4 ML VIAL IV ONE (22:00)
[2022-08-08] VITALS (31 sets, daily range): BP systolic 90–146; BP diastolic 52–79
[2022-08-08] MEDS: HYDRAGUARD CREAM TP SCH ×2 (01:00→13:15)
[2022-08-08] MEDS: ALBUTEROL SULFATE/IPRATROPIU 3 ML SOL IH SCH ×2 (01:09→06:39)
[2022-08-08] MEDS: COLISTIMETHATE SODIUM 75 MG in NACL 0.9% 100 ML IV SCH ×2 (02:59→15:30)
[2022-08-08] MEDS: metroNIDAZOLE 500 MG/NS PREMIX 100 ML IV SCH ×3 (05:30→20:06)
[2022-08-08] MEDS: PIPERACILLIN/TAZOBACTAM 3.375 GM in DEXTROSE 5% 50 ML IV SCH ×3 (05:31→20:08)
[2022-08-08 06:08] LABS: BASOPHILS # (AUTO) 0.1 K/uL (0.00-0.22); BASOPHILS % (AUTO) 0.7 % (0.0-2.0); EOSINOPHILS # (AUTO) 0.3 K/uL (0-0.4); EOSINOPHILS % (AUTO) 3.1 % (0.0-4.0); HEMATOCRIT 27.5 % (36-52); HEMOGLOBIN 9.2 g/dL (12.0-18.0); LYMPHOCYTES # (AUTO) 1.2 K/uL (2.0-11.5); LYMPHOCYTES % (AUTO) 13.3 % (20.5-51.1); MEAN CORPUSCULAR HEMOGLOBIN 31 pg (27-31); MEAN CORPUSCULAR HGB CONC 34 g/dL (33-37); MEAN CORPUSCULAR VOLUME 93.1 fL (80-94); MONOCYTES # (AUTO) 0.8 K/uL (0.8-1.0); MONOCYTES % (AUTO) 8.2 % (1.7-9.3); NEUTROPHILS # (AUTO) 6.9 K/uL (1.8-7.7); NEUTROPHILS % (AUTO) 74.7 % (42.2-75.2); PLATELET COUNT (AUTO) 373 K/uL (140-450); RED BLOOD CELL COUNT(AUTO) 2.96 MIL/uL (4.20-6.10); WHITE BLOOD COUNT (AUTO) 9.3 K/uL (4.8-10.8)
--- NOTE | 2022-08-08 06:35 | NUR ---
RECEIVED PT ON ACVC 450,18,+5,30%. VENT WHEELS ARE LOCKED, PLUGGED INTO RED OUTLET, AMBUBAG AT BEDSIDE, ALARMS ARE SET AND AUDIBLE. SATURATION WAS 99%, BREATH SOUNDS WERE COARSE, SUCTIONED OUT MOD AMOUNT OF PALE SECRETIONS. WILL CONTINUE TO MONITOR.
[2022-08-08 06:39] LABS: ANION GAP 7.5 (8-16); ASPARTATE AMINOTRANSFERASE 13 U/L (15-37); CARBON DIOXIDE 32.2 mmol/L (21-32); CHLORIDE 103 mmol/L (98-107); CREATININE 0.9 mg/dL (0.6-1.3); GLUCOSE 102 mg/dL (74-106); POTASSIUM 3.7 mmol/L (3.5-5.1); SODIUM SERUM 139 mmol/L (136-145); TOTAL BILIRUBIN 0.3 mg/dL (0.0-1.0); UREA NITROGEN, BLOOD 22 mg/dL (7-18)
[2022-08-08 07:04] LABS: ALBUMIN 2.3 g/dL (3.4-5.0)
--- NOTE | 2022-08-08 07:10 | NUR ---
RECEIVED PATIENT FROM THE NIGHT RN ALY. INTUBATED ON AC/VC RATE 18, 450 MLS, 30% O21, +5, ORAL ETT. LEVOPHED 2.987 MCG/MINUTE, FENTANYL AT 0.297 MCG/KG/HR, TUBE FEEDING JEVITY 1.2, TUBING FOR CHANGING, WITH FLOW ERROR. 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 HEEL ELEVATORS. CONTACT ISOLATION.
[2022-08-08] MEDS: POLYETHYLENE GLYCOL 17 GM/PKT PO SCH ×2 (09:00→20:08)
[2022-08-08] MEDS: AMIODARONE 200 MG TAB PO SCH (09:44)
[2022-08-08] MEDS: MIDODRINE 5 MG TAB PO SCH ×3 (09:45→16:53)
--- NOTE | 2022-08-08 10:48 | NUR ---
DR. SPRINGER ROUNDS, NOTED PATIENT RESTING, WAS AGITATED, STARTED ON RESTRAINTS EARLIER, SINCE PT. STARTED TO HOLD TO ETT AND ACT OF PULLING WITH BOTH HANDS. BUT NOT OBEYING TO COMMANDS. MD ORDERED TO CONTINUE WEANING PT. FROM VENTILATOR, FLAGYL ASK INFECTIOUS DISEASE IF ON THE CASE, RENEW ATIVAN PRN.
[2022-08-08] MEDS: Z-GUARD PASTE TP SCH (13:15)
[2022-08-08] MEDS: GAUZE TP SCH (13:15)
--- NOTE | 2022-08-08 13:15 | NUR ---
WEANING PATIENT WAS WEANED ON SIMV RATE 18, PS 16, FiO2 30% +5.
--- NOTE | 2022-08-08 14:30 | NUR ---
DR. ELIZABETH KRISHNAN SAND NOTED ABOUT WEANING WITH SIMV AND ORDERED THE RATE CHANGE TO 14 HIMSELF. INFORMED OF THE FLAGYL FOR RENEWAL. NOTED THAT THE LEVOPHED AT 2 MCG/MIN & FENTANYL AT ABOUT 25 MCG/HR. RATE.
--- NOTE | 2022-08-08 15:00 | NUR ---
PATIENT'S DAUGHTER KEE CALLED UP AND ASKED IF THE PATIENT IS ON PRE-BIOTIC OR PROBIOTIC AND REQUESTED TO ADD IT IN PATIENT'S MEDICATION REGIMEN. MESSAGED DR. RACHEAL Best. DAUGHTER SAID THAT SHE WILL BRING ANOTHER SPEAKER FOR THE PATIENT SO HE CAN LISTEN, CURRENTLY SHE BROUGHT EARLIER FROM HOME THE PEACH SPEAKER FOR THE PATIENT, AND SHE ASKED ABOUT CHEMISTRY, HEMATOLOGY, ANTIBIOTICS, IF THE PATIENT HAD ORAL CARE, BECAUSE SHE SAID, "I WANT TO BRING HOME MY FATHER." THAT WISH WAS RELAYED TO DR. JOHNSON. Addendum: 08/08/22 at 1908 by Agency Nurse 15, SHALONDA LIZ [address] OMER SAID THAT TO ASK DR. JOHNSON FOR THE PREBIOTIC & PROBIOTIC IF IT IS OKAY WITH HIM, THAT THE DAUGHTER WANTS TO HAVE ORDERED FOR THE PATIENT.
--- NOTE | 2022-08-08 17:36 | NUR ---
PT HAS BEEN ON SIMV SINCE 1314. HE IS RESPONDING WELL TO 14/5. VOLUMES ARE GOOD AND NO RESPIRATORY DISTRESS NOTED. BREATH SOUNDS ARE CLEAR, BLOOD PRESSURE IS IN THE NORMAL RANGE, SATURATION IS 100%. WILL REPORT TO MARKETING PROFESSIONAL.
--- NOTE | 2022-08-08 19:08 | NUR ---
PATIENT HANDED OVER TO NIGHT RN JOHN, AND INFORMED THAT DR. SPRINGER SAID TO ASK DR. JOHNSON FOR THE PROBIOTIC AND PREBIOTIC TOMORROW. PT. HAD BEEN ON SIMV 14, PS 14, 28% FiO2, +5 SINCE 1315 HRS. TILL NOW. PT. IS STABLE. DAUGHTER VERBALIZED THAT SHE WANTS TO TAKE THE PATIENT HOME. MOVED BM TWICE, LOOSE YELLOW MODERATE AMOUNT EACH. APPLIED Z-GUARD & HYDRAGUARD ON MARK AREAS & SCROTUM, APPLIED NEW OPTIFOAM ON SACRUM. ORAL CARE DONE. SECRETIONS ARE THICK, PALE YELLOW, SMALL AMOUNT EACH TIME SUCTIONED ABOUT 3 TIMES SUCTIONING. ORAL IS CLOUDY, CREAMY WHITE, THICK TO THIN. LEVOPHED OFF SINCE 1800 HRS. ON MIDODRINE. RESIDUALS 10-20MLS.
[2022-08-08] MEDS: fentaNYL citrate 1 MG in NACL 0.9% 80 ML IV PRN (19:39)
[2022-08-09] VITALS (32 sets, daily range): BP systolic 85–149; BP diastolic 53–81
[2022-08-09] MEDS: HYDRAGUARD CREAM TP SCH ×2 (01:09→13:06)
[2022-08-09] MEDS: COLISTIMETHATE SODIUM 75 MG in NACL 0.9% 100 ML IV SCH ×2 (02:03→15:02)
[2022-08-09] MEDS: metroNIDAZOLE 500 MG/NS PREMIX 100 ML IV SCH ×3 (04:20→20:31)
[2022-08-09] MEDS: PIPERACILLIN/TAZOBACTAM 3.375 GM in DEXTROSE 5% 50 ML IV SCH ×3 (05:16→20:32)
[2022-08-09 05:54] LABS: BASOPHILS # (AUTO) 0.1 K/uL (0.00-0.22); BASOPHILS % (AUTO) 0.9 % (0.0-2.0); EOSINOPHILS # (AUTO) 0.3 K/uL (0-0.4); EOSINOPHILS % (AUTO) 3.9 % (0.0-4.0); HEMATOCRIT 27.4 % (36-52); HEMOGLOBIN 9.1 g/dL (12.0-18.0); LYMPHOCYTES # (AUTO) 1.4 K/uL (2.0-11.5); LYMPHOCYTES % (AUTO) 18.2 % (20.5-51.1); MEAN CORPUSCULAR HEMOGLOBIN 31 pg (27-31); MEAN CORPUSCULAR HGB CONC 33 g/dL (33-37); MEAN CORPUSCULAR VOLUME 92.8 fL (80-94); MONOCYTES # (AUTO) 0.7 K/uL (0.8-1.0); MONOCYTES % (AUTO) 9.3 % (1.7-9.3); NEUTROPHILS # (AUTO) 5.1 K/uL (1.8-7.7); NEUTROPHILS % (AUTO) 67.7 % (42.2-75.2); PLATELET COUNT (AUTO) 356 K/uL (140-450); RED BLOOD CELL COUNT(AUTO) 2.96 MIL/uL (4.20-6.10); WHITE BLOOD COUNT (AUTO) 7.6 K/uL (4.8-10.8)
[2022-08-09 06:40] LABS: ALBUMIN 1.8 g/dL (3.4-5.0); ANION GAP 10.7 (8-16); ASPARTATE AMINOTRANSFERASE 24 U/L (15-37); CARBON DIOXIDE 30.8 mmol/L (21-32); CHLORIDE 102 mmol/L (98-107); POTASSIUM 3.5 mmol/L (3.5-5.1); SODIUM SERUM 140 mmol/L (136-145); TOTAL BILIRUBIN 0.3 mg/dL (0.0-1.0); UREA NITROGEN, BLOOD 27 mg/dL (7-18)
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
[2022-08-09 07:18] LABS: GLUCOSE 98 mg/dL (74-106)
[2022-08-09] MEDS: ALBUTEROL SULFATE/IPRATROPIU 3 ML SOL IH SCH ×3 (07:52→19:37)
[2022-08-09] MEDS: POLYETHYLENE GLYCOL 17 GM/PKT PO SCH ×2 (09:00→20:31)
--- NOTE | 2022-08-09 09:00 | NUR ---
DR. SPRINGER CAME AND NOTED THAT THE PATIENT IS AWAKE BUT NOT OBEYING TO COMMANDS. DAUGHTER HAS A LOT OF CONCERNS, LIKE THE WBC WHICH ARE BELOW 10, YESTERDAY, AND THAT SHE WANTS THE PATIENT BE BROUGHT HOME, AWARE THAT THE PATIENT IS WEANED FROM VENT.
[2022-08-09] MEDS: POTASSIUM CHLORIDE 20% 40 MEQ/15 ML UDC GT PRN (09:14)
[2022-08-09] MEDS: MIDODRINE 5 MG TAB PO SCH ×3 (09:14→17:04)
[2022-08-09] MEDS: AMIODARONE 200 MG TAB PO SCH (09:25)
[2022-08-09] MEDS: GAUZE TP SCH (13:05)
[2022-08-09] MEDS: Z-GUARD PASTE TP SCH (13:07)
--- NOTE | 2022-08-09 13:10 | NUR ---
BP GOALS & LACTOBACILLUS DR. JOHNSON ROUNDED, INFORMED OF THE DAUGHTER REQUEST TO ADD PROBIOTIC AND PREBIOTIC ON PATIENT'S MEDICATION REGIMEN, MD ORDERED TO START ON LACTOBACILLUS 1 CAP TWICE A DAY. BP GOES DOWN TO 88 mmHg BUT MAP IS 68, MD SAID THAT BP IS OKAY LONG WITHIN GOALS OF SBP 90 AND MAP ABOVE 65 mmHg. NO CHANGE IN MIDODRINE.
--- NOTE | 2022-08-09 18:45 | NUR ---
PATIENT'S DAUGHTER KEE CALLED UP, ASKED ABOUT THE PATIENT'S CONDITION, SPUTUM/COLOR, WEANING. INFORMED THAT THE PATIENT IS STABLE, NOT ON LEVOPHED 24 HRS. AGO, BP WHEN SLEEPING AT SBP 88-90 mmHg, INFORMED, WHEN AWAKE SBP 100-130. PT. STILL DOES NOT HAVE EYE CONTACT, NO EYE TRACKING WHEN TALKED TO, MOVED/TURNED/CLEANED. WEANED WITH SIMV, BUT PT. DOES NOT DO EXTRA BREATHS IN ADDITION TO SET RATE. LEGS ARE STIFF. DAUGHTER SAID THAT THE PATIENT DID NOT HAVE STROKE FROM THE PAST, OR WHEN HE WAS AT THE [facility], THAT PT. HAD COVID 19 IN DECEMBER 2021 AND WAS IN THE ICU TWICE BEFORE AND NOW THE THIRD TIME IN THE ICU. DAUGHTER IS TALKING OF BRINGING AN INFRA-RED FOR INFLAMMATION AND HEALING, AND WAS APPROVED BY DR. SPRINGER SHE SAID, AND MUSIC TO MAKE PATIENT RELAXED. I TOLD DAUGHTER THAT I WILL PASS THE MESSAGE TO THE CORDUROY CUTTER OPERATOR & TO DR. SPRINGER AND MD'S.
--- NOTE | 2022-08-09 19:29 | NUR ---
HANDED OVER PATIENT TO NIGHT RN AKANKSHA. INFORMED ABOUT THE PATIENT'S DAUGHTER WANTS TO BRING INFRA RED MACHINE AND RADIO TO BE RELAYED TO MDs/. PATIENT'S BP GOAL SBP 90 AND/OR MAP ABOVE 65 mmHg.
--- NOTE | 2022-08-09 19:30 | NUR ---
ASSUMED CARE OF PT.INITIAL ASSESSMENT COMPLETED.PT OPENS EYES SPONTANEOUSLY.NOT TRACKING.DOES NOT FOLLOW COMMANDS.SR NOTED ON MONITOR..ORALLY INTUBATED TO VENT FIO2 30% TV450 RATE 18 PEEP 5.W/CJ PICC LINE.FLUSHED,GOOD BLOOD RETURN TO BOTH PORTS INFUSING NS AT 5ML/HR AND FENTANYL DRIP AT 0.3MCG/KG/HR.W/GTUBE ALREADY IN PLACE.NO RESIDUALS NOTED.ON CONTINUOUS FEEDING JEVITY AT 60ML/HR W/ WATER FLUSH ORDERED.W/SHAH CATHETER TO BSD DRAINING SMALL AMT OF YELLOW URIINE.W/BILATERAL SOFT WRIST RESTRAINTS.NO S/SX OF INJURIES NOTED.WILL CONTINUE TO MONITOR.FLACC 0
--- NOTE | 2022-08-09 20:00 | NUR ---
ORAL CARE USING VAP KIT RENDERED.PT ON HEPARIN FOR DVT PROPHYLAXIS.NO GI PROPHYLAXIS AT THIS TIME.WILL F/U WITH MD IN AM
[2022-08-09] MEDS: LACTOBACILLUS RHAMNOSUS GG 1 EACH CAP PO SCH (20:31)
[2022-08-09] MEDS: fentaNYL citrate 1 MG in NACL 0.9% 80 ML IV PRN (20:33)
--- NOTE | 2022-08-09 22:20 | NUR ---
PHONE CALL FROM PTS , UPDATED ON PTS PRESENT CONDITION.QUESTIONS ANSWERED
[2022-08-10] VITALS (28 sets, daily range): BP systolic 85–140; BP diastolic 52–83
--- NOTE | 2022-08-10 00:13 | NUR ---
AFEBRILE.ORAL CARE USING VAP KIT RENDERED.FLACC 0.REPOSITIONED.BILATERAL SOFT WRIST RESTRAINTS STILL IN PLACE.NO SIGNS OF INJURIES NOTED
[2022-08-10] MEDS: HYDRAGUARD CREAM TP SCH ×2 (01:43→12:31)
[2022-08-10] MEDS: COLISTIMETHATE SODIUM 75 MG in NACL 0.9% 100 ML IV SCH ×2 (02:22→14:09)
--- NOTE | 2022-08-10 03:00 | NUR ---
PTS CONDITION REMAINS UNCHANGED.NO S/SX OF RESP DISTRESS NOTED.FLACC 0
[2022-08-10] MEDS: ALBUTEROL SULFATE/IPRATROPIU 3 ML SOL IH SCH ×4 (03:34→19:11)
[2022-08-10] MEDS: metroNIDAZOLE 500 MG/NS PREMIX 100 ML IV SCH ×3 (04:42→21:25)
[2022-08-10] MEDS: PIPERACILLIN/TAZOBACTAM 3.375 GM in DEXTROSE 5% 50 ML IV SCH ×3 (04:58→21:25)
--- NOTE | 2022-08-10 05:00 | NUR ---
BM NOTED.MORNING CARE DONE.ORAL CARE RENDERED.FLACC 0.REPOSITIONED
--- NOTE | 2022-08-10 05:00 | NUR ---
HAD BM TO WATERY YELLOW BROWN STOOL ; MORNING BED BATH DONE; REPOSITIONED OF COMFORT. Addendum: 08/11/22 at 0722 by Angeles Bruno RN PROVIDER MISTAKE
[2022-08-10 05:57] LABS: BASOPHILS # (AUTO) 0.1 K/uL (0.00-0.22); BASOPHILS % (AUTO) 0.8 % (0.0-2.0); EOSINOPHILS # (AUTO) 0.4 K/uL (0-0.4); EOSINOPHILS % (AUTO) 4.7 % (0.0-4.0); HEMATOCRIT 29.8 % (36-52); HEMOGLOBIN 9.9 g/dL (12.0-18.0); LYMPHOCYTES # (AUTO) 2.4 K/uL (2.0-11.5); LYMPHOCYTES % (AUTO) 27.4 % (20.5-51.1); MEAN CORPUSCULAR HEMOGLOBIN 31 pg (27-31); MEAN CORPUSCULAR HGB CONC 33 g/dL (33-37); MONOCYTES # (AUTO) 0.8 K/uL (0.8-1.0); MONOCYTES % (AUTO) 8.6 % (1.7-9.3); NEUTROPHILS # (AUTO) 5.2 K/uL (1.8-7.7); NEUTROPHILS % (AUTO) 58.5 % (42.2-75.2); PLATELET COUNT (AUTO) 426 K/uL (140-450); RED CELL DISTRIBUTION WIDTH 15.1 % (11.6-13.7); WHITE BLOOD COUNT (AUTO) 8.8 K/uL (4.8-10.8)
--- NOTE | 2022-08-10 06:20 | NUR ---
PHONE CALL FROM PTS DAUGHTER KEE, UPDATED ON PTS PRESENT CONDITION,SHE WAS ASKING REGARDING HER PLAN TO BRING INFRA RED FOR PT, INFORMED HER THAT THE PCP HAS NOT BEEN IN TO SEE PT JUST YET, WILL ENDORSED TO NEXT NURSE REGARDING HER REQUEST.
--- NOTE | 2022-08-10 07:08 | NUR ---
REPORT GIVEN TO NEFTALI LIZ FOR CONTINUITY OF CARE.
[2022-08-10 07:12] LABS: ANION GAP 13.1 (8-16); ASPARTATE AMINOTRANSFERASE 28 U/L (15-37); CARBON DIOXIDE 29.6 mmol/L (21-32); CHLORIDE 100 mmol/L (98-107); CREATININE 1.1 mg/dL (0.6-1.3); GLUCOSE 82 mg/dL (74-106); POTASSIUM 3.7 mmol/L (3.5-5.1); SODIUM SERUM 139 mmol/L (136-145); TOTAL BILIRUBIN 0.4 mg/dL (0.0-1.0); UREA NITROGEN, BLOOD 22 mg/dL (7-18)
--- NOTE | 2022-08-10 07:15 | NUR ---
RECEIVED PATIENT FROM THE NIGHT SHALONDA Rose PATIENT ORALLY INTUBATED, AC/VC f18, 450 MLS, .30, +5. TUBE FEEDINGS + FREE WATER FLUSH + MARCELO BID BY P.E.G.. SHAH CATHETER IN SITU. PATIENT STILL NO TRACKING. SLEEPING. ROUSABLE.
[2022-08-10] MEDS: POLYETHYLENE GLYCOL 17 GM/PKT PO SCH ×2 (09:00→21:27)
[2022-08-10] MEDS: LACTOBACILLUS RHAMNOSUS GG 1 EACH CAP PO SCH ×2 (09:04→21:25)
[2022-08-10] MEDS: MIDODRINE 5 MG TAB PO SCH ×3 (09:05→16:35)
[2022-08-10] MEDS: AMIODARONE 200 MG TAB PO SCH (09:05)
--- NOTE | 2022-08-10 10:00 | NUR ---
DR. JOHNSON ([facility]), INFORMED THAT PATIENT'S DAUGHTER KEE SAID THAT THE PT. DOES NOT HAVE CVA IN THE PAST OR STROKE. IT WAS WRITTEN HISTORY FROM ANOTHER HOSPITAL. WILL ORDER FOR PPI. INFORMED DAUGHTER WOULD LIKE FOR INFRA-RED MACHINE INSIDE THE ROOM FOR 'INFLAMMATION HEALING.' MD DID NOT APPROVE OF INFRA RED MACHINE. Addendum: 08/10/22 at 1553 by Agency Nurse 15, RN RN NOTED NO SPONTANEOUS BREATHING WITH CPAP/PS DONE BY RT AROUND 0800AM, DR. JOHNSON ORDERED TO DECREASE FENTANYL GTT, TO WAKE PATIENT MORE. DECREASED FENTANYL RATE FROM 2.97 MCG/KG/HR TO 2 MCG/KG/HR.
[2022-08-10] MEDS: LANSOPRAZOLE 30 MG CAPDR GT SCH (10:35)
[2022-08-10] MEDS: GAUZE TP SCH (12:31)
[2022-08-10] MEDS: Z-GUARD PASTE TP SCH (12:32)
--- NOTE | 2022-08-10 14:48 | NUR ---
PATIENT'S DAUGHTER KEE CALLED UP SEVERAL TIMES ABOUT THE GYOW-IOBUJ-OAQ MACHINE FOR THE PATIENT THAT SHE WOULD LIKE TO HAVE THE PATIENT AT THE BEDSIDE. DAUGHTER WOULD LIKE TO TALK TO DR. JOHNSON, PAGED DR. JOHNSON FOR THE DAUGHTER. SAID THAT HE DOES NOT GOING TO ORDER THAT MACHINE, BUT NOT GOING TO STOP THE DAUGHTER IF SHE WANTS IT. PAGED FOR THE COMB TENDER ABOUT THIS, SINCE THE DAUGHTER KEEPS ON CALLING ABOUT IT. PATIENT'S AT THE BEDSIDE ALSO WAS TALKING TO DAUGHTER AND BOTH ARE INSISTING ON HAVING THAT NEAR INFRA-RED MACHINE.
--- NOTE | 2022-08-10 14:50 | NUR ---
PATIENT'S DAUGHTER KEE CALLED UP AGAIN AND ASKED TO TALK TO DR. SPRINGER. INFORMED THAT WE WILL INFORM DR. SPRINGER WHEN HE COMES FOR ROUNDS TODAY.
--- NOTE | 2022-08-10 15:45 | NUR ---
DR. STARKS (I AND D), [facility].
--- NOTE | 2022-08-10 16:50 | NUR ---
DR. ADAN (SAME WITH DR. SPRINGER'S SERVICE) CAME & INFORMED OF THE DAUGHTER KEE'S CONCERN ABOUT THE PREBIOTIC, NOT HAPPY WITH LACTOBACILLUS ALONE, SHE SAID THAT PREBIOTIC AND PROBIOTIC SHOULD GO HAND IN HAND. INFORMED OF THE REQUEST OF DAUGHTER TO TALK TO DR. SPRINGER ABOUT THE WNBL-LSEKH-KDP LIGHT MACHINE . INFORMED THAT DR. JOHNSON DOES NOT WANT TO ORDER THE MACHINE. GIVEN THE DAUGHTER'S CELL PHONE NUMBER [phone]. PATIENT'S AT THE BEDSIDE ASKED WHY IS THE ARMS, LEGS SWOLLEN. EXPLAINED THAT THE PATIENT IS LYING DOWN, NOT MOVING, SWELLING IS LIKELY TO HAPPEN WITH LOW ALBUMIN EVEN IF THE PATIENT IS GETTING MARCELO BID AND TUBE FEEDING. INSISTING ON TELLING THE MD. DR. ADAN WAS INFORMED THAT WOULD LIKE TO TALK TO MD AND BE INFORMED OF THE SWELLING OF THE ARMS AND LEGS. Addendum: 08/10/22 at 1915 by Agency Nurse 15, RN RN [address] ADAN CALLED UP DAUGHTER KEE AND TALKED TO AT BEDSIDE WITH CONCERNS ABOUT LEGS AND ARMS SWELLING. LEFT AT 1800 HRS.
--- NOTE | 2022-08-10 19:30 | NUR ---
RECEIVED PATIENT ON BED WITH HOB ELEVATED TO 30 DEGREE; SEDATED WITH CONTNUOUS FENTANYL DRIP AT 0.2 MCG/KG/HR; RASS -3.ORALLY INTUBATED AND VENTILATED AT 30% FI02, S02 96%. CARDIACSCOPE SHOWS ON SINUS RHYTHM HR 73/MIN NO [id number] SEEN. ABDOMEN IS SOFT, NON TENDER; ACTIVE BOWEL SOUND. ON CONTINUOUS TUBE FEEDING JEVITY 1.2 AT 60 ML/HR TOLERATED WITH MINIMAL RESIDUAL. SHAH CATH IN PLACE, DRAINING TO CLEAR YELLOW URINE OUTPUT; INTACT.
--- NOTE | 2022-08-10 21:00 | NUR ---
HAD BM TO WATERY YELLOWISH BROWN MODERATE AMOUNT OF STOOL; KEPT CLEAN DRY AND COMFORTABLE; REPOSITIONED OF COMFORT.
[2022-08-11] VITALS (25 sets, daily range): BP systolic 90–148; BP diastolic 54–104
[2022-08-11] MEDS: ALBUTEROL SULFATE/IPRATROPIU 3 ML SOL IH SCH ×5 (00:53→23:15)
[2022-08-11] MEDS: COLISTIMETHATE SODIUM 75 MG in NACL 0.9% 100 ML IV SCH ×2 (02:15→14:34)
[2022-08-11] MEDS: HYDRAGUARD CREAM TP SCH ×2 (05:00→13:00)
--- NOTE | 2022-08-11 05:00 | NUR ---
HAD BM AGAIN TO WATERY YELLOW BROWN STOOL; MORNING BED BATH DONE; REPOSITIONED PATIENT.
[2022-08-11] MEDS: metroNIDAZOLE 500 MG/NS PREMIX 100 ML IV SCH ×3 (05:12→21:40)
[2022-08-11] MEDS: PIPERACILLIN/TAZOBACTAM 3.375 GM in DEXTROSE 5% 50 ML IV SCH ×3 (05:12→21:40)
[2022-08-11 05:28] LABS: BASOPHILS # (AUTO) 0.1 K/uL (0.00-0.22); EOSINOPHILS # (AUTO) 0.5 K/uL (0-0.4); EOSINOPHILS % (AUTO) 5.9 % (0.0-4.0); HEMATOCRIT 28.3 % (36-52); HEMOGLOBIN 9.8 g/dL (12.0-18.0); LYMPHOCYTES # (AUTO) 1.8 K/uL (2.0-11.5); LYMPHOCYTES % (AUTO) 22.7 % (20.5-51.1); MEAN CORPUSCULAR HEMOGLOBIN 31 pg (27-31); MEAN CORPUSCULAR HGB CONC 35 g/dL (33-37); MEAN CORPUSCULAR VOLUME 90.7 fL (80-94); MONOCYTES # (AUTO) 0.7 K/uL (0.8-1.0); MONOCYTES % (AUTO) 9.2 % (1.7-9.3); NEUTROPHILS # (AUTO) 4.8 K/uL (1.8-7.7); NEUTROPHILS % (AUTO) 61.2 % (42.2-75.2); PLATELET COUNT (AUTO) 389 K/uL (140-450); RED BLOOD CELL COUNT(AUTO) 3.12 MIL/uL (4.20-6.10); RED CELL DISTRIBUTION WIDTH 15.2 % (11.6-13.7); WHITE BLOOD COUNT (AUTO) 7.8 K/uL (4.8-10.8)
[2022-08-11 06:27] LABS: ALBUMIN 2.4 g/dL (3.4-5.0); ANION GAP 12.6 (8-16); ASPARTATE AMINOTRANSFERASE 23 U/L (15-37); CARBON DIOXIDE 28.8 mmol/L (21-32); CHLORIDE 102 mmol/L (98-107); CREATININE 1.2 mg/dL (0.6-1.3); GLUCOSE 122 mg/dL (74-106); POTASSIUM 3.4 mmol/L (3.5-5.1); SODIUM SERUM 140 mmol/L (136-145); TOTAL BILIRUBIN 0.3 mg/dL (0.0-1.0); UREA NITROGEN, BLOOD 26 mg/dL (7-18)
[2022-08-11] MEDS: LANSOPRAZOLE 30 MG CAPDR GT SCH (07:12)
--- NOTE | 2022-08-11 07:20 | NUR ---
RECEIVED PATIENT FROM NIGHT SHALONDA Barrera PATIENT ORALLY INTUBATED AC/VC f18, 450 MLS, 30%, +5 SIZE 7.5. FENTANYL DRIP 0.2 MCG/KG/HR FOR COMFORT. PEG TUBE FEEDING JEVITY 1.2 60 MLS/HR + FWF + MARCELO BID. SHAH CATHETER SINUS RHYTHM.
[2022-08-11] MEDS: POLYETHYLENE GLYCOL 17 GM/PKT PO SCH ×2 (07:51→21:00)
--- NOTE | 2022-08-11 08:30 | NUR ---
KYVF-ZAHCC-UIX MACHINE PATIENT'S DAUGHTER KEE CALLED UP AND ASKING OF BRING THE CQNH-OKPUI-JSD MACHINE FOR HER DAD 'INFLAMMATION AND CIRCADIAN RHYTHM,' INFORMED THAT I WILL FOLLOW UP WITH NYLA VIDAL TODAY AND WITH THE ADMINISTRATION ALSO. LAURA, PIPELINES SUPERINTENDENT WHO CAME IN ICU WHILE TALKING TO DAUGHTER SAID THAT WE CAN HAVE THE FAMILY SIGN THAT THE HOSPITAL IS NOT RESPONSIBLE OF THE RISKS OR IF THERE IS A PROBLEM, SIGNED BY 2 RNs. 0940 AM: DR. JOHNSON SAID THAT HE IS NOT GOING TO ORDER THE NKMI-TLEWS-UZP-MACHINE. 1045 AM: PER RT SHAH, DURING HUDDLE, DR. MONDRAGON (CONSTRUCTION MANAGEMENT ASSISTANT, [facility]) AND VINITA (CHAR FILTER OPERATOR-RN OF [facility]) SAID THAT THE HOSPITAL CANNOT ALLOW OUTSIDE MACHINES BROUGHT INTO THE HOSPITAL AND THE EVEN THE ORANGE-COLORED [employer] NEST DEVICE.
[2022-08-11] MEDS: LACTOBACILLUS RHAMNOSUS GG 1 EACH CAP PO SCH ×2 (09:12→21:41)
[2022-08-11] MEDS: AMIODARONE 200 MG TAB PO SCH (09:13)
[2022-08-11] MEDS: MIDODRINE 5 MG TAB PO SCH ×3 (09:13→17:43)
[2022-08-11] MEDS: POTASSIUM CHLORIDE 20% 40 MEQ/15 ML UDC GT PRN (09:14)
--- NOTE | 2022-08-11 09:40 | NUR ---
DR. JOHNSON ([facility]) NOTED THAT FENTANYL TITRATED DOWN TO 0.1 MCG/KG/HR FROM 0.2 MCG. PT. SLEEPING MOST OF THE TIME, CPAP/PS FAILED 08/10/2022, MD ORDERED TO HOLD FENTANYL GTT. PLAN IS TO MAKE THE PATIENT MORE AWAKE AND WEAN, SINCE IF HE CANNOT TOLERATE WEANING, HE MIGHT HAVE EVENTUALLY A TRACHEOSTOMY. DAUGHTER WOULD LIKE TO BRING PATIENT HOME, AND ADAMANT ABOUT IT. INFORMED PT. TEMP. TODAY 100.3F, YELLOW SPUTUM, K+ 3.4, REPLACED BY 40 mEq BY PEG.
--- NOTE | 2022-08-11 11:20 | NUR ---
PT STARTED ON CPAP 05/06 28% TOLERATING WELL. RN NOTIFIED.
[2022-08-11] MEDS: GAUZE TP SCH (13:00)
[2022-08-11] MEDS: Z-GUARD PASTE TP SCH (13:00)
[2022-08-11] MEDS: CARBOXYMETHYLCELLULOSE SODIUM 1% OP PRN (14:36)
--- NOTE | 2022-08-11 15:00 | NUR ---
NYLA VIDAL CAME, INFORMED BY MANUAL LATHE MACHINIST SANDY, THAT [facility] TANK TERMINAL GAUGER DR. MONDRAGON AND [facility] WASH BARREL LEADER VINITA SAID THAT NO OUTSIDE MACHINES ARE ALLOWED INTO THE HOSPITAL. NO NEW ORDERS.
--- NOTE | 2022-08-11 16:22 | NUR ---
08/11/22 RD FOLLOW UP COMPLETED PLEASE REFER TO NUTRITION ASSESSMENT UNDER CARE ACTIVITY FOR ESTIMATED NUTRITIONAL NEEDS. 1. RECOMMEND INCREASING JEVITY 1.2 TO 65 ML/HR GOAL RATE, FWF 100 ML Q6H TOLERATED. 2. CONTINUE WITH MARCELO BID. (PROVIDES 180 KCAL AND 5 GM PROTEIN DAILY) - WITH MARCELO BID, JEVITY 1.2 YURY @ 65 ML/HR GOAL RATE WILL PROVIDE 1560 ML TOTAL VOLUME, 2052 KCAL, 91 GM PROTEIN, AND 1459 ML FREE WATER MEETING 100% ESTIMATED ENERGY NEEDS AND 84% ESTIMATED PROTEIN NEEDS; ADEQUATE. 3. MONITOR GASTRIC RESIDUALS AND NUTRITION RELATED LAB VALUES. 4. RD TO FOLLOW-UP 3-5 DAYS, MODERATE RISK REVIEWED BY CHIKI COHEN RD
--- NOTE | 2022-08-11 17:30 | NUR ---
DAUGHTER KEE CALLED UP AND SAID IT IS UNFORTUNATE THAT THE HOSPITAL IS NOT ALLOWING HER TO BRING HER NEAR INFRA RED MACHINE FOR THE PATIENT. WAS AT THE BEDSIDE ASKING A LOT OF QUESTIONS.
--- NOTE | 2022-08-11 19:20 | NUR ---
RECEIVED REPORT FROM NEFTALI LIZ FOR CONTINUITY. PT IS LYING SUPINE WITH HIS EYES CLOSEDHE'SETT TO VENT WITH SETTINGS AB/VC FIO2 24%, TV450, RATE 18 AND PEEP 5. PT SOUNDS WET. ORAL SECRETIONS COPIOUS, AND ORAL CARE GIVEN. RT AT THE BEDSIDE CHANGE FIO2 DOWN TO 24%. PT RESISTING PUPIL CHECK. HE HAS IV ACCESS, CJ PICC-LINE. HE IS OFF ALL SEDATION TO ACCOMMODATE HIS CPAP TRAIL TOMORROW. HE HAS A PEG TUBE IN PLACE INFUSING 65CC GLUCERNA Q H AND 100CC FREE WATER Q 6 H. HE'S TOLERATING THE FEEDING WELL HIS RESIDUAL WAS ONLY 5CC. HE HAS A SHAH CATH IN PLACE DRAINING ADEQUATE AMOUNT OF CLEAR YELLOW URINE. PT DOESN'T APPEAR TO BE IN DISTRESS AT THIS TIME.
--- NOTE | 2022-08-11 19:20 | NUR ---
REPORT GIVEN TO NIGHT SHALONDA CM. PATIENT ON CPAP/PS +5/10 SINCE 1120 AM. LOTS OF YELLOW THICK, FREQUENT SUCTIONING PER ETT, P.O. NEEDS SUCTIONING ON THE TUBING CONDENSATION AND YELLOW THICK. LARGE AMOUNT BM X 3. HAS A LOT OF QUESTIONS, ANSWERED.
--- NOTE | 2022-08-11 19:55 | NUR ---
PT PLACED BACK ON FULL SUPPORT ON VENT
--- NOTE | 2022-08-11 20:00 | NUR ---
PT'S DAUGHTER CALLED FOR AN UPDATE ON THE PT.
[2022-08-12] VITALS (16 sets, daily range): BP systolic 86–136; BP diastolic 52–76
[2022-08-12] MEDS: HYDRAGUARD CREAM TP SCH ×2 (00:46→12:11)
[2022-08-12] MEDS: LORazepam 2 MG/ML VIAL IM/IVP PRN (00:47)
--- NOTE | 2022-08-12 00:47 | NUR ---
PT VERY RESTLESS AND ANXIOUS, PT ONLY HAS ATIVAN.5MG PO. UNABLE TO WITHDRAW IT FORM THE PIXIS.. CALLED [facility]. DR. AVELAR SENIOR ELECTRICAL DESIGN ENGINEER. HE CALLED BACK AND WAS INFORMED OF PT CONDITION, HE ORDERED 1MG ATIVAN IVP. GIVEN AND IT TOOK A WHILE BEFORE THE PT BEGAN TO RESPOND.
[2022-08-12] MEDS: COLISTIMETHATE SODIUM 75 MG in NACL 0.9% 100 ML IV SCH ×2 (02:00→14:54)
--- NOTE | 2022-08-12 02:00 | NUR ---
PT TEMPERTURE UP T0 102.3. OFIRMEV WA GIVEN IV AND A COOL BATH WAS GIVEN. PT HAD A, VERY LARGE LIQUID STOOLCOMPLRE AM ARE GIVEN PT REQUIRES FREQUENT ORAL SUCTIONING.
[2022-08-12] MEDS: ACETAMINOPHEN 100 ML IV PRN (02:08)
[2022-08-12] MEDS: metroNIDAZOLE 500 MG/NS PREMIX 100 ML IV SCH ×2 (05:07→13:15)
[2022-08-12] MEDS: PIPERACILLIN/TAZOBACTAM 3.375 GM in DEXTROSE 5% 50 ML IV SCH ×2 (05:08→12:11)
[2022-08-12 05:47] LABS: BASOPHILS # (AUTO) 0.1 K/uL (0.00-0.22); BASOPHILS % (AUTO) 0.3 % (0.0-2.0); EOSINOPHILS # (AUTO) 0.4 K/uL (0-0.4); EOSINOPHILS % (AUTO) 1.7 % (0.0-4.0); HEMATOCRIT 30.5 % (36-52); HEMOGLOBIN 10.3 g/dL (12.0-18.0); LYMPHOCYTES # (AUTO) 1.2 K/uL (2.0-11.5); LYMPHOCYTES % (AUTO) 5.3 % (20.5-51.1); MEAN CORPUSCULAR HEMOGLOBIN 31 pg (27-31); MEAN CORPUSCULAR HGB CONC 34 g/dL (33-37); MEAN CORPUSCULAR VOLUME 91.2 fL (80-94); MONOCYTES # (AUTO) 0.8 K/uL (0.8-1.0); MONOCYTES % (AUTO) 3.3 % (1.7-9.3); NEUTROPHILS # (AUTO) 20.9 K/uL (1.8-7.7); NEUTROPHILS % (AUTO) 89.4 % (42.2-75.2); PLATELET COUNT (AUTO) 396 K/uL (140-450); RED BLOOD CELL COUNT(AUTO) 3.35 MIL/uL (4.20-6.10); RED CELL DISTRIBUTION WIDTH 15.6 % (11.6-13.7); WHITE BLOOD COUNT (AUTO) 23.4 K/uL (4.8-10.8)
[2022-08-12] MEDS: LANSOPRAZOLE 30 MG CAPDR GT SCH (06:10)
[2022-08-12 06:37] LABS: ALBUMIN 2.4 g/dL (3.4-5.0); ANION GAP 12.4 (8-16); ASPARTATE AMINOTRANSFERASE 21 U/L (15-37); CHLORIDE 106 mmol/L (98-107); CREATININE 1.4 mg/dL (0.6-1.3); GLUCOSE 153 mg/dL (74-106); POTASSIUM 3.4 mmol/L (3.5-5.1); SODIUM SERUM 142 mmol/L (136-145); TOTAL BILIRUBIN 0.5 mg/dL (0.0-1.0); UREA NITROGEN, BLOOD 34 mg/dL (7-18)
[2022-08-12] MEDS: ALBUTEROL SULFATE/IPRATROPIU 3 ML SOL IH SCH ×4 (07:00→19:54)
--- NOTE | 2022-08-12 07:30 | NUR ---
RECEIVED REPORT FROM EXTRUDER NURSE. PATIENT CONTINUES TO BE IN CRITICAL CONDITION, LYING DOWN IN BED RESTING. ETT TO VENT WITH FIO2:40%. SHAH CATHETER IN PLACE, GTUBE RUNNING FEEDING PER MD ORDERS. CJ PICC LINE INTACT ON TKO, NO DRIPS, NO SEDATION. REVIEWED PLAN OF CARE WITH PATIENT. UNABLE TO COMPREHEND. WILL CONTINUE TO MONITOR.
[2022-08-12] MEDS: POLYETHYLENE GLYCOL 17 GM/PKT PO SCH ×2 (09:00→20:18)
[2022-08-12] MEDS: LACTOBACILLUS RHAMNOSUS GG 1 EACH CAP PO SCH ×2 (09:07→20:18)
[2022-08-12] MEDS: AMIODARONE 200 MG TAB PO SCH (09:07)
[2022-08-12] MEDS: MIDODRINE 5 MG TAB PO SCH ×3 (09:07→17:39)
--- NOTE | 2022-08-12 09:40 | NUR ---
SCHEDULED MEDICATIONS DUE GIVEN. WILL CONTINUE TO MONITOR.
--- NOTE | 2022-08-12 10:10 | NUR ---
PT PLACED ON CPAP 5 PS 10 FIO2 24% BY , ALARMS ON AND FUNCTIONING, WILL CONTINUE TO MONITOR.
--- NOTE | 2022-08-12 10:57 | NUR ---
FAMILY MEMBERS AND DR. RICHMOND REVIEWING PLAN OF CARE WITH PATIENT AT BEDSIDE. WILL CONTINUE TO MONITOR.
--- NOTE | 2022-08-12 12:10 | NUR ---
PT COMPLETED AROUND TWO HOURS OF CPAP TRIAL, RR RANGED FROM 25-28 AND VT RANGED FROM 400-450. NURSE AWARE OF PT STATUS.
[2022-08-12] MEDS: Z-GUARD PASTE TP SCH (12:11)
[2022-08-12] MEDS: GAUZE TP SCH (12:11)
--- NOTE | 2022-08-12 12:40 | NUR ---
SCHEDULED MEDICATIONS DUE GIVEN. WILL CONTINUE TO MONITOR.
--- NOTE | 2022-08-12 14:16 | NUR ---
CLEANED AND REPOSITIONED PATIENT, NO DIARRHEA AT THIS TIME, BROWN PASTY SMEAR. WILL TRY TO COLLECT STOOL LATER.
[2022-08-12] MEDS ORDERED: VANCOMYCIN PER PHARMACY MC PRN (17:45)
[2022-08-12] MEDS: FLUCONAZOLE 200 MG/NS PREMIX 100 ML IV SCH (18:19)
--- NOTE | 2022-08-12 19:30 | NUR ---
ASSUMED CARE OF PT.INITIAL ASSESSMENT COMPLETED.PT OPENS EYES SPONTANEOUSLY.DOES NOT FOLLOW COMMANDS.SR NOTED ON MONITOR.ORALLY INTUBATED TO VENT FIO2 24 % TV450 RATE 18 PEEP 5.W/CJ PICC LINE.FLUSHED,GOOD BLOOD RETURN TO BOTH PORTS INFUSING NS AT 5ML/HR , PT OFF SEDATION.W/G TUBE ALREADY IN PLACE.20 ML RESIDUALS NOTED.ON CONTINUOUS FEEDING JEVITY AT 65ML/HR W/ WATER FLUSH ORDERED.W/SHAH CATHETER TO BSD DRAINING SMALL AMT OF YELLOW URINE.W/BILATERAL SOFT WRIST RESTRAINTS.NO S/SX OF INJURIES NOTED.WILL CONTINUE TO MONITOR.FLACC 0
[2022-08-12] MEDS: POTASSIUM CHLORIDE 20% 40 MEQ/15 ML UDC GT PRN (19:46)
[2022-08-12] MEDS ORDERED: VANCOMYCIN 750 MG in DEXTROSE 5% 250 ML IV SCH (20:00)
--- NOTE | 2022-08-12 20:00 | NUR ---
ORAL CARE USING VAP KIT RENDERED.PT ON PREVACID FOR GI PROPHYLAXIS AND HEPARIN FOR DVT PROPHYLAXIS.REPOSITIONED
[2022-08-12] MEDS ORDERED: LEVOFLOXACIN 500 MG/D5W PREMIX 100 ML IV SCH (22:00)
--- NOTE | 2022-08-12 23:44 | NUR ---
PT ASLEEP;EASILY AROUSABLE.STILL NOT FOLLOWING COMMANDS.NO RESP DISTRESS NOTED AT THIS TIME.WILL CONTINUE TO MONITOR.FLACC 0
[2022-08-13] VITALS (25 sets, daily range): BP systolic 97–139; BP diastolic 55–79
[2022-08-13] MEDS: HYDRAGUARD CREAM TP SCH ×2 (00:23→12:52)
[2022-08-13] MEDS: ALBUTEROL SULFATE/IPRATROPIU 3 ML SOL IH SCH ×4 (00:38→19:09)
[2022-08-13] MEDS: LORazepam 2 MG/ML VIAL IM/IVP PRN (01:32)
--- NOTE | 2022-08-13 01:33 | NUR ---
pt very restless,agitated, breathing fast,respiration 30's , ativan administered as ordered
--- NOTE | 2022-08-13 02:30 | NUR ---
PT APPEARS SLEEPING COMFORTABLY; BREATHING EVEN,NON LABORED.FLACC 0.REPOSITIONED FOR COMFORT
[2022-08-13 05:32] LABS: BASOPHILS # (AUTO) 0.1 K/uL (0.00-0.22); BASOPHILS % (AUTO) 0.7 % (0.0-2.0); EOSINOPHILS # (AUTO) 0.4 K/uL (0-0.4); EOSINOPHILS % (AUTO) 2.7 % (0.0-4.0); HEMATOCRIT 30.5 % (36-52); HEMOGLOBIN 10.2 g/dL (12.0-18.0); LYMPHOCYTES # (AUTO) 1.9 K/uL (2.0-11.5); LYMPHOCYTES % (AUTO) 11.5 % (20.5-51.1); MEAN CORPUSCULAR HEMOGLOBIN 31 pg (27-31); MEAN CORPUSCULAR HGB CONC 34 g/dL (33-37); MEAN CORPUSCULAR VOLUME 91.4 fL (80-94); MONOCYTES # (AUTO) 1.1 K/uL (0.8-1.0); MONOCYTES % (AUTO) 6.5 % (1.7-9.3); NEUTROPHILS # (AUTO) 13.2 K/uL (1.8-7.7); NEUTROPHILS % (AUTO) 78.6 % (42.2-75.2); PLATELET COUNT (AUTO) 373 K/uL (140-450); RED BLOOD CELL COUNT(AUTO) 3.33 MIL/uL (4.20-6.10); RED CELL DISTRIBUTION WIDTH 16.1 % (11.6-13.7); WHITE BLOOD COUNT (AUTO) 16.8 K/uL (4.8-10.8)
--- NOTE | 2022-08-13 05:45 | NUR ---
MORNING CARE DONE.BM NOTED,SMALL AMT OF PASTY BROWNISH STOOL.FLACC 0
[2022-08-13] MEDS: LANSOPRAZOLE 30 MG CAPDR GT SCH (05:57)
[2022-08-13 06:11] LABS: ALBUMIN 2.5 g/dL (3.4-5.0); ASPARTATE AMINOTRANSFERASE 21 U/L (15-37); CHLORIDE 108 mmol/L (98-107); CREATININE 1.2 mg/dL (0.6-1.3); GLUCOSE 114 mg/dL (74-106); SODIUM SERUM 142 mmol/L (136-145); TOTAL BILIRUBIN 0.4 mg/dL (0.0-1.0); UREA NITROGEN, BLOOD 29 mg/dL (7-18)
--- NOTE | 2022-08-13 07:20 | NUR ---
RECEIVED PATIENT FROM NIGHT SHALONDA Acevedo. ORALLY INTUBATED, AC/VC RATE 18, 450 MLS, +5, 24% FiO2. PEG TUBE FEEDIG JEVITY 1.2 60 MLX/HR + FWF 1000MLS Q6 H + MARCELO BID. SHAH CATHETER. BM X 1 PASTY, HELD MIRALAX. C.DIFFICILE NOT DONE, NOT IN CRITERIA FOR TESTING. NO NEAR INFRA-RED MACHINE TO BE BROUGHT TO HOSPITAL REQUESTED BY DAUGHTER BEFORE.
[2022-08-13] MEDS: POLYETHYLENE GLYCOL 17 GM/PKT PO SCH ×2 (07:30→21:32)
[2022-08-13] MEDS: LACTOBACILLUS RHAMNOSUS GG 1 EACH CAP PO SCH ×2 (08:39→21:32)
[2022-08-13] MEDS: AMIODARONE 200 MG TAB PO SCH (08:39)
[2022-08-13] MEDS: MIDODRINE 5 MG TAB PO SCH ×3 (08:39→17:20)
[2022-08-13] MEDS: VANCOMYCIN 1,000 MG in DEXTROSE 5% 250 ML IV SCH (08:58)
[2022-08-13] MEDS: CARBOXYMETHYLCELLULOSE SODIUM 1% OP PRN ×2 (09:30→16:00)
--- NOTE | 2022-08-13 11:00 | NUR ---
DAUGHTER KEE WAS AT THE BEDSIDE, SPOKEN TO BY DR. JOHNSON, FOR TRANSFER OUT TO [facility], TRACHEOSTOMY. INFORMED THAT THE PATIENT IS VERY WEAK, AND NEEDS TO BE ON TRACHEOSTOMY. DAUGHTER REFUSED TO SIGN FOR TRACHEOSTOMY, WOULD TO SPEAK WITH THE INSURANCE FIRST. AND WANTS THE [facility] IN [place]. 1230 PM: DR. JOHNSON WAS PAGED, DAUGHTER WOULD LIKE TO SPEAK WITH MD ABOUT HAVING THE TRACHEOSTOMY DONE IN [facility] FIRST BEFORE GOING TO [facility]. DAUGHTER SPOKE WITH THE [facility] AUTOMOTIVE ALIGNMENT SPECIALIST THEN [employer] FOR THE PLACEMENT OF THE PT. AND WOULD LIKE TO SPEAK WITH DR. JOHNSON AGAIN FOR THE CANCELLATION OF TRANSFER TO [facility], AND ASKED TO BE TRACHED IN [facility]. MD CALLED UP SPOKE TO DAUGHTER, TRACHEOSTOMY WILL BE DONE IN [facility], THEN TRANSFERRED TO [facility]. CONSENT FOR TRACHE SIGNED BY DAUGHTER, NPO POST MIDNIGHT 0001AM, TRACHE 08/14/22. Addendum: 08/13/22 at 1509 by Agency 08 RN RN 1300 HRS. DAUGHTER CHECKED PATIENT'S TEMP. 100F AND SAID ABOUT OKAY FOR TYLENOL SINCE, PT'S. WANTS THE TYLENOL. DAUGHTER AUSCULTATED LUNGS SHE REQUESTED EARLIER.
[2022-08-13] MEDS: Z-GUARD PASTE TP SCH (12:52)
[2022-08-13] MEDS: GAUZE TP SCH (12:52)
[2022-08-13] MEDS: ACETAMINOPHEN 325 MG TAB PO PRN (12:53)
--- NOTE | 2022-08-13 14:00 | NUR ---
DR. STARKS (I&D) CAME, CONTINUE VANCO, LEVAQUIN & FLUCONAZOLE. NO OTHER ORDERS.
--- NOTE | 2022-08-13 15:00 | NUR ---
PATIENT'S CAME INFORMED THAT THE PT. WILL HAVE TRACHE TOMORROW. CALLED UP DAUGHTER AND I TALKED TO DAUGHTER KEE, PT. FOR TRACHE TOMORROW, THEN TRANSFER TO [facility] AFTER TRACHE. NO BED ASSIGNED YET. DAUGHTER WANTS [facility] IN [place] (FIRST CHOICE) OR [facility] IN [place] (SECOND CHOICE).
[2022-08-13] MEDS: FLUCONAZOLE 200 MG/NS PREMIX 100 ML IV SCH (17:21)
--- NOTE | 2022-08-13 19:05 | NUR ---
CHANGED RIGHT UPPER ARM PICC LINE DRESSING, CLEANED STAIN STOOL, SACRUM INTACT, DRESSING CHANGED NEW OPTIFOAM, Z GUARD APPLIED. EYE DROPS GIVEN TWICE. STAYED UNTIL 1800 HRS. AND REQUESTS TO BE INFORMED OF THE TIME WHEN TRACHE DONE TOMORROW BY CALLING DAUGHTER KEE. KEE REQUESTS TO TURN OFF LIGHTS AFTER THE INTERVENTION OR PROCEDURES. INFORMED THAT WE DO NOT TURN OFF LIGHTS AT NIGHT EVEN THE RN STATION IS NEAR DUE TO SAFETY, BUT SHE REQUESTS TO TURN THE LIGHTS DOWN. DAUGHTER FROM THE PHONE AND THE AT THE BEDSIDE ALSO ASKING TO ADD 1 DEG. FAHRENHEIT TO TEMP. INFORMED THAT WE JUST RECORD IT IS FROM THE THERMOMETER AND INDICATE THE SITE WHERE TEMP. WAS TAKEN, AND ASKED IF THE TRACHE WILL BE DONE IF THE PATIENT HAS FEVER AND ASKED FOR TYLENOL. ASKED FOR ALARMS EVERY TIME ON THE MONITOR, THE VENTILATOR. SUCTIONED FREQUENTLY, LARGE AMOUNT YELLOW ETT SECRETIONS AND ORAL CLOUDY WHITE LARGE AMOUNT TO MODERATE AMOUNT EVERY HOUR TO EVERY 45 MINUTES. TURNED PATIENT. CAN GIVE MIRALAX TODAY. NPO POST MIDNIGHT. Addendum: 08/13/22 at 1912 by Agency 08 RN RN ASKED TO INFORM DR. ADAN WHO WAS ROUNDING AT 1730 HRS. ABOUT THE TEMPERATURE CONCERN OF ADDING 1 DEG. F. NOTHING ORDERED, OR NO COMMENT. AND ASKED TO ASK DR. ADAN IF THE PATIENT WILL HAVE TRACHE IF WITH FEVER, INFORMED THAT THE MD WHO WILL DECIDE WILL BE THE [place] ( [place]).
--- NOTE | 2022-08-13 19:15 | NUR ---
REPORT GIVEN TO NIGHT SHALONDA CUEVAS. INFORMED NPO POST MINIGHT, FOR TRACHE TOMORROW. CONSENT SIGNED. TO CALL DAUGHTER WHEN THE TRACHE IS DONE, FOR THE TIME. FOR TRANSFER TO [facility]. FIRST CHOICE IS [facility] AND SECOND CHOICE IS [facility]. IF NONE OF THOSE, INFORM THE DAUGHTER. FOR TRANSFER TO [facility] AFTER THE TRACHE. [facility] CALLED FOR ASSESSMENT OF PATIENT, NO BED YET. STEPHANIE OKAYED TO GIVEN THE PATIENT A SHAVE OF THE BRAND.
[2022-08-13] MEDS: LEVOFLOXACIN 250 MG/D5 PREMIX 50 ML IV SCH (21:33)
--- NOTE | 2022-08-13 22:15 | NUR ---
PHONE CALL FROM DR COHEN, ANESTHESIOLOGIST, UPDATED ON PTS PRESENT CONDITION.QUESTIONS ANSWERED.NEW ORDERS RECEIVED.CARRIED OUT. ALSO CALLED DR COBY HERNÁNDEZ, MATH COACH FOR DR ANNE. DR PATRICK,DATA ANALYTICS SPECIALIST TO READ EKG AND ECHO
--- NOTE | 2022-08-13 22:44 | NUR ---
MESSAGED DR PATRICK, RE TO READ EKG/ECHO.DR PATRICK ACKNOWLEDGED THE MESSAGE
[2022-08-14] VITALS (28 sets, daily range): BP systolic 100–145; BP diastolic 57–94
[2022-08-14] MEDS: ALBUTEROL SULFATE/IPRATROPIU 3 ML SOL IH SCH ×2 (01:00→19:15)
[2022-08-14] MEDS: HYDRAGUARD CREAM TP SCH ×2 (01:04→12:29)
[2022-08-14 06:04] LABS: BASOPHILS # (AUTO) 0.1 K/uL (0.00-0.22); BASOPHILS % (AUTO) 0.4 % (0.0-2.0); EOSINOPHILS # (AUTO) 0.5 K/uL (0-0.4); EOSINOPHILS % (AUTO) 3.4 % (0.0-4.0); HEMATOCRIT 30.4 % (36-52); HEMOGLOBIN 10.2 g/dL (12.0-18.0); LYMPHOCYTES # (AUTO) 2.7 K/uL (2.0-11.5); LYMPHOCYTES % (AUTO) 16.9 % (20.5-51.1); MEAN CORPUSCULAR HEMOGLOBIN 31 pg (27-31); MEAN CORPUSCULAR HGB CONC 34 g/dL (33-37); MEAN CORPUSCULAR VOLUME 91.6 fL (80-94); MONOCYTES # (AUTO) 1.1 K/uL (0.8-1.0); MONOCYTES % (AUTO) 6.8 % (1.7-9.3); NEUTROPHILS # (AUTO) 11.6 K/uL (1.8-7.7); NEUTROPHILS % (AUTO) 72.5 % (42.2-75.2); PLATELET COUNT (AUTO) 405 K/uL (140-450); RED BLOOD CELL COUNT(AUTO) 3.32 MIL/uL (4.20-6.10); RED CELL DISTRIBUTION WIDTH 16.4 % (11.6-13.7)
[2022-08-14 06:22] LABS: PROTHROMBIN TIME 11.1 secs (10.8-13.4)
[2022-08-14] MEDS: ACETAMINOPHEN 325 MG TAB PO PRN ×2 (06:23→10:28)
[2022-08-14] MEDS: LANSOPRAZOLE 30 MG CAPDR GT SCH (06:30)
[2022-08-14 06:57] LABS: ALBUMIN 2.6 g/dL (3.4-5.0); ANION GAP 13.2 (8-16); ASPARTATE AMINOTRANSFERASE 18 U/L (15-37); CARBON DIOXIDE 24.9 mmol/L (21-32); CHLORIDE 108 mmol/L (98-107); CREATININE 1.2 mg/dL (0.6-1.3); GLUCOSE 102 mg/dL (74-106); POTASSIUM 4.1 mmol/L (3.5-5.1); SODIUM SERUM 142 mmol/L (136-145); TOTAL BILIRUBIN 0.3 mg/dL (0.0-1.0); UREA NITROGEN, BLOOD 31 mg/dL (7-18)
--- NOTE | 2022-08-14 07:27 | NUR ---
RECEIVED REPORT FROM NIGHT SHALONDA CUEVAS. PT. ORALLY INTUBATED AC/VC, NPO POST MIDNIGHT FOR TRACHEOSTOMY TODAY AT 1230PM TODAY WITH CONSENT FROM DAUGHTER KEE. PER SHALONDA CUEVAS, DAUGHTER WAS INFORMED AT 0630AM OF THE SCHEDULE. PT. HAS ORDER FOR EKG AND ECHO BY SURGEON. SHAH CATHETER, PEG.
[2022-08-14] MEDS: LACTOBACILLUS RHAMNOSUS GG 1 EACH CAP PO SCH ×2 (09:00→21:55)
[2022-08-14] MEDS: POLYETHYLENE GLYCOL 17 GM/PKT PO SCH ×2 (09:00→21:00)
--- NOTE | 2022-08-14 09:15 | NUR ---
STOMA OF OLD TRACHE HAS PALE YELLOW THICK SPUTUM COMING OUT WITH COUGHING, CLEANED AND APPLIED NEW DRESSING. SUCTIONED LARGE AMOUNT ORAL SECRETIONS COME OUT OF THE MOUTH, CLEANED, AND SUCTIONED BY ETT.
[2022-08-14] MEDS: VANCOMYCIN 1,000 MG in DEXTROSE 5% 250 ML IV SCH (09:25)
[2022-08-14] MEDS: MIDODRINE 5 MG TAB PO SCH ×4 (09:25→17:25)
[2022-08-14] MEDS: AMIODARONE 200 MG TAB PO SCH (09:25)
--- NOTE | 2022-08-14 09:39 | NUR ---
WOUND CARE RE-EVALUATION NOTE: SACRAL WOUNDS HAS CONTINUE TO IMPROVE WITH RESURFACING AND RESPONDING TO CURRENT TREATMENT PLANS. POC DISCUSSED WITH IVONNE LIZ, PT WILL HAVE TRACH PROCEDURE TODAY. PT IS AT SITTING POSITION, EYES OPEN, LOOKING AROUND, BILATERAL HEELS OFFLOAD WITH HEEL RAISERS. -OLD HEALING S/P TRACH SITE. SMALL AMOUNT OF MUCOUS SECRETION NOTICE, NO ODOR, MARK-TRACH SKIN PINK AND INTACT -PRESSURE INJURY STAGE 3, SACROCOCCYX 4X4CM, SUPERFICIAL DEPTH, WOUND BED 100% PINK GRANULATION TISSUE, MOIST, NO ODOR, WOUND EDGE FLAT, MARK-WOUND SKIN MOIST SURROUNDING NON-BLANCHABLE REDNESS REMAIN - RIGHT AND LEFT POSTERIOR LATERAL UPPER BACK OLD ECCHYMOSIS, SKIN DISCOLORATION, LARGEST TO RIGHT SIDE 12X6CM, SKIN INTACT.
[2022-08-14] MEDS: Z-GUARD PASTE TP SCH (12:29)
[2022-08-14] MEDS ORDERED: BUPIVACAINE-MPF 0.25% 30 ML VIAL INJ ONE (12:36)
--- NOTE | 2022-08-14 13:01 | NUR ---
ANESTHESIOLOGIST CAME DR. COHEN, PT. FOR TRACHEOSTOMY. DR. COHEN SAID NOT TO GIVE MIDODRINE. NPO POST MIDNIGHT. MD TALKED TO STEPHANIE WHO WAS AT THE BEDSIDE, AND CALLED UP DAUGHTER KEE AND DAUGHTER TALKED TO MD ABOUT ANESTHESIA CONSENT. FINGERSTICK BLOOD SUGAR 112 MGS./DL. 1310 HRS. PT. LEFT THE ICU WITH BED WITH MONITOR WITH , SHALONDA ORTIZ (O.R.) AND RT.
[2022-08-14] MEDS ORDERED: fentaNYL citrate 0.05 MG/ML VIAL ONE ×2 (13:06→13:07)
[2022-08-14] MEDS ORDERED: ONDANSETRON 4 MG/2 ML VIAL ONE (13:07)
[2022-08-14] MEDS ORDERED: ROCURONIUM 50 MG/5 ML VIAL IV ONE ×2 (13:07→13:23)
[2022-08-14] MEDS ORDERED: SEVOFLURANE 250 ML BTL INH ONE (13:07)
--- NOTE | 2022-08-14 13:10 | NUR ---
PT TRANSPORTED TO OR FOR TRACH. PT WAS BAGGED AND SATING 98%. NO DISTRESS NOTED. WILL TRANSPORT BACK WHEN PT IS DONE WITH SURGERY.
--- NOTE | 2022-08-14 13:40 | NUR ---
DR CUEVAS WANTED BRONCH SET UP AND BROUGHT TO OR DURING SURGERY. RT AT OPERATING BEDSIDE WAITING FOR FURTHER ORDERS. ENDED UP NOT NEEDED THE BRONCH.
[2022-08-14] MEDS: GAUZE TP SCH (13:50)
--- NOTE | 2022-08-14 14:00 | NUR ---
STATUS POST TRACHEOSTOMY PT.CAME BACK FROM O.R. WITH ANESTHESIOLOGIST DR. COHEN OPili RN ANGEL, AND RT ALYSSA. PT. HAD TRACHEOSTOMY PLACED WITH SIZE 8 CUFFED UNDER GENERAL ANESTHESIA, SUTURED, OBTURATOR SAVED AT THE BEDSIDE.. RECEIVED THERE ZOFRAN, FENTANYL 100 MCG. AND NORMAL SALINE LESS THAN 150 MLS. AC/VC RATE 16, 400 MLS, +5 AND FiO2 75%. WAS SPOKEN BY BERMUDIAN-SPEAKING MD STUDENT FROM THE QUIET ROOM AND CAME AT THE BEDSIDE AFTER. INFORMED THAT THE PATIENT WILL BE SLEEPING DUE TO POST O.R. PROCEDURE. AND NO FURTHER QUESTIONS. Addendum: 08/14/22 at 1641 by Agency 08 SHALONDA LIZ POST-OP ORDERS, NPO EXCEPT MEDS BY G-TUBE. START TUBE FEEDING TOMORROW.
[2022-08-14] MEDS ORDERED: MORPHINE SULFATE 4 MG/ML SYR IV PRN (14:05)
[2022-08-14] MEDS ORDERED: HYDROcodone/APAP 5/325 MG 1 TAB TAB PO PRN (14:05)
[2022-08-14] MEDS ORDERED: MORPHINE SULFATE 2 MG/ML SYR IVP PRN (14:05)
[2022-08-14] MEDS ORDERED: hydrALAZINE 20 MG/ML VIAL IVP PRN (14:09)
--- NOTE | 2022-08-14 16:45 | NUR ---
DR. SHAIKH JARQUIN, NOTED S/P TRACHEOSTOMY. NPO EXCEPT MEDS. TO START TUBE FEEDING TOMORROW. START ON DEXTROSE 5% 0.9% NORMAL SALINE AT 75 MLS/HR. WHILE NPO.
--- NOTE | 2022-08-14 17:00 | NUR ---
CALLED UP DAUGHTER KEE, SINCE THE PATIENT'S WANTS TO INFORM HER THAT THE PT. IS STABLE. DAUGHTER SAID THAT SHE WAS UPDATED BY EDDA DRAKE (SURGEON) ABOUT THE TRACHEOSTOMY. DAUGHTER SAID TO PASS THE MESSAGE THAT SHE WANTS THE LIGHTS TURNED OFF WHENEVER THERE IS NOTHING TO DO AT THE BEDSIDE TO LET THE PT. REST/SLEEP, SHE REQUESTED BEFORE, AND WAS INFORMED YESTERDAY THAT AT NIGHT WE KEEP THE LIGHTS ON, TO SEE THE PATIENT, BUT WE CAN DECREASE THE BRIGHTNESS ONLY.
[2022-08-14] MEDS: DEXT 5% /NACL 0.9% 1,000 ML IV SCH (17:26)
[2022-08-14] MEDS: FLUCONAZOLE 200 MG/NS PREMIX 100 ML IV SCH (18:00)
--- NOTE | 2022-08-14 19:16 | NUR ---
PATIENT HANDED OVER TO NIGHT SHALONDA CUEVAS. PT. NPO EXCEPT MEDS, TO RESUME TUBE FEEDING IN THE MORNING. IVF D5NS @ 75 MLS/HR. WHILE NPO. STATUS POST TRACHEOSTOMY SIZE 8, CUFFED. SHAH CATHETER URINE 675 MLS. NO BM. FOR TRANSFER TO [facility], 1ST CHOICE OF FAMILY IS MICHAEL MIKA, SECOND CHOICE IS ANTONIO. DAUGHTER KEE UPDATED BY SURGEON. AFTER TRACHE SPUTUM IS CLOUDY WHITE THICK, MODERATE AMOUNT. WANTS THE BRAND SHAVED TOTALLY NOW THAT THE TAPE OF ORAL ETT IS GONE. DAUGHTER ASKED TO TURN OFF LIGHTS WHEN NO PROCEDURE OR INTERVENTION IN THE ROOM.
[2022-08-14] MEDS: LEVOFLOXACIN 250 MG/D5 PREMIX 50 ML IV SCH (21:57)
--- NOTE | 2022-08-14 23:51 | NUR ---
2330 LOWERED FIO2 TO 40%. SATS 100%
[2022-08-15] VITALS (27 sets, daily range): BP systolic 104–135; BP diastolic 60–78
[2022-08-15] MEDS: HYDRAGUARD CREAM TP SCH ×2 (01:00→13:55)
[2022-08-15] MEDS: ALBUTEROL SULFATE/IPRATROPIU 3 ML SOL IH SCH ×4 (01:07→20:04)
--- NOTE | 2022-08-15 03:39 | NUR ---
0330 LOWERED FIO2 TO 28% SATS 98%
[2022-08-15 06:14] LABS: BASOPHILS # (AUTO) 0.1 K/uL (0.00-0.22); BASOPHILS % (AUTO) 0.5 % (0.0-2.0); EOSINOPHILS # (AUTO) 0.2 K/uL (0-0.4); EOSINOPHILS % (AUTO) 1.6 % (0.0-4.0); HEMATOCRIT 28.6 % (36-52); HEMOGLOBIN 9.6 g/dL (12.0-18.0); LYMPHOCYTES # (AUTO) 2.2 K/uL (2.0-11.5); LYMPHOCYTES % (AUTO) 15.4 % (20.5-51.1); MEAN CORPUSCULAR HEMOGLOBIN 31 pg (27-31); MEAN CORPUSCULAR HGB CONC 34 g/dL (33-37); MONOCYTES # (AUTO) 0.7 K/uL (0.8-1.0); NEUTROPHILS # (AUTO) 11.3 K/uL (1.8-7.7); NEUTROPHILS % (AUTO) 77.5 % (42.2-75.2); PLATELET COUNT (AUTO) 360 K/uL (140-450); RED BLOOD CELL COUNT(AUTO) 3.11 MIL/uL (4.20-6.10); RED CELL DISTRIBUTION WIDTH 16.9 % (11.6-13.7); WHITE BLOOD COUNT (AUTO) 14.6 K/uL (4.8-10.8)
[2022-08-15] MEDS: LANSOPRAZOLE 30 MG CAPDR GT SCH (06:49)
[2022-08-15] MEDS: DEXT 5% /NACL 0.9% 1,000 ML IV SCH ×2 (06:49→08:38)
[2022-08-15 06:53] LABS: ALBUMIN 2.5 g/dL (3.4-5.0); ASPARTATE AMINOTRANSFERASE 13 U/L (15-37); CARBON DIOXIDE 25.9 mmol/L (21-32); CHLORIDE 110 mmol/L (98-107); CREATININE 1.2 mg/dL (0.6-1.3); GLUCOSE 118 mg/dL (74-106); POTASSIUM 3.9 mmol/L (3.5-5.1); SODIUM SERUM 144 mmol/L (136-145); TOTAL BILIRUBIN 0.2 mg/dL (0.0-1.0); UREA NITROGEN, BLOOD 27 mg/dL (7-18)
--- NOTE | 2022-08-15 07:22 | NUR ---
RECEIVED ON A PB 840 VENTILATOR PLUGGED INTO RED OUTLET TOLERATING WELL WITHOUT ADVERSE REACTIONS NOTED TO A PORTEX DCT #8 AIRWAY SECURED WITH A TRACH TIE CUFF PRESSURE CHECKED NOTED AMBU BAG AT BEDSIDE STABLE EQUAL CHEST RISE TRACHEAL TUBE SUCTION FOR LARGE THIN PALE YELLOW/HAZY SECRETIONS AIRWAY PATENT
[2022-08-15] MEDS: LACTOBACILLUS RHAMNOSUS GG 1 EACH CAP PO SCH ×2 (08:33→21:10)
[2022-08-15] MEDS: MIDODRINE 5 MG TAB PO SCH ×3 (08:33→17:00)
[2022-08-15] MEDS: POLYETHYLENE GLYCOL 17 GM/PKT PO SCH ×2 (08:34→21:10)
[2022-08-15] MEDS: AMIODARONE 200 MG TAB PO SCH (08:40)
[2022-08-15] MEDS: VANCOMYCIN 1,000 MG in DEXTROSE 5% 250 ML IV SCH (09:48)
--- NOTE | 2022-08-15 10:25 | NUR ---
GOOD CHEST RISE TRACHEAL SUCTION FOR COPIOUS THIN PALE YELLOW SECRETIONS AIRWAY PATENT
[2022-08-15] MEDS: GAUZE TP SCH (13:55)
[2022-08-15] MEDS: Z-GUARD PASTE TP SCH (13:55)
--- NOTE | 2022-08-15 13:55 | NUR ---
STABLE RESTING COMFORTABLY GOOD CHEST RISE DEEP TRACHEAL SUCTION FOR LARGE THIN YELLOW/HAZY SECRETIONS AIRWAY PATENT
--- NOTE | 2022-08-15 16:12 | NUR ---
RESTING COMFORTABLY GOOD CHEST AIRWAY PATENT SPOUSE AT BEDSIDE
[2022-08-15] MEDS: FLUCONAZOLE 200 MG/NS PREMIX 100 ML IV SCH (18:18)
--- NOTE | 2022-08-15 19:20 | NUR ---
TRANSFER OF CARE FROM DAY SHIFT, REPORT RECEIVED FROM SHALONDA SANTACRUZ. PATIENT RECEIVED IN BED, AWAKE, EYES OPEN AND DOES NOT APPEAR TO BE IN DISTRESS. PATIENT IS TRACH TO VENT WITH THE CURRENT SETTINGS: AC/VC, FIO2=28, ZC=549, RATE=16, AND PEEP=5. PATIENT HAS THE FOLLOWING MEDICATIONS CURRENTLY INFUSING: NORMAL SALINE AT 10 ML/HR CURRENT VITALS AT START OF SHIFT: TEMP=99.3F, HR=73, O2 SAT=99%, VF=899/61, R=35. PATIENT HAS PEG WITH FEEDING. CURRENTLY RECEIVING JEVITY 1.2 AT 65ML/HR. HAS SHAH IN PLACE, WILL CONTINUE TO MONITOR PATIENT
--- NOTE | 2022-08-15 19:26 | NUR ---
Patient had an uneventful day. On vent, S/P Trach. Trach site looks intact with minimal oozing of serosang fluid. Vitals stable, repositioned. PM care given. Restraints continued. Orders renewed.
[2022-08-15] MEDS: LEVOFLOXACIN 250 MG/D5 PREMIX 50 ML IV SCH (21:30)
[2022-08-16] VITALS (16 sets, daily range): BP systolic 110–145; BP diastolic 61–82
[2022-08-16] MEDS: ALBUTEROL SULFATE/IPRATROPIU 3 ML SOL IH SCH ×4 (01:00→19:00)
[2022-08-16] MEDS: HYDRAGUARD CREAM TP SCH ×2 (01:00→12:56)
[2022-08-16 06:13] LABS: BASOPHILS # (AUTO) 0.1 K/uL (0.00-0.22); BASOPHILS % (AUTO) 0.5 % (0.0-2.0); EOSINOPHILS # (AUTO) 0.2 K/uL (0-0.4); EOSINOPHILS % (AUTO) 1.6 % (0.0-4.0); HEMATOCRIT 28.5 % (36-52); HEMOGLOBIN 9.7 g/dL (12.0-18.0); LYMPHOCYTES # (AUTO) 1.9 K/uL (2.0-11.5); LYMPHOCYTES % (AUTO) 13.8 % (20.5-51.1); MEAN CORPUSCULAR HEMOGLOBIN 31 pg (27-31); MEAN CORPUSCULAR HGB CONC 34 g/dL (33-37); MEAN CORPUSCULAR VOLUME 91.3 fL (80-94); MONOCYTES # (AUTO) 0.9 K/uL (0.8-1.0); MONOCYTES % (AUTO) 6.6 % (1.7-9.3); NEUTROPHILS # (AUTO) 10.5 K/uL (1.8-7.7); NEUTROPHILS % (AUTO) 77.5 % (42.2-75.2); PLATELET COUNT (AUTO) 281 K/uL (140-450); RED BLOOD CELL COUNT(AUTO) 3.12 MIL/uL (4.20-6.10); RED CELL DISTRIBUTION WIDTH 16.8 % (11.6-13.7); WHITE BLOOD COUNT (AUTO) 13.5 K/uL (4.8-10.8)
[2022-08-16 06:23] LABS: ANION GAP 11.6 (8-16); CARBON DIOXIDE 26.3 mmol/L (21-32); CHLORIDE 108 mmol/L (98-107); CREATININE 1.2 mg/dL (0.6-1.3); GLUCOSE 125 mg/dL (74-106); POTASSIUM 3.9 mmol/L (3.5-5.1); SODIUM SERUM 142 mmol/L (136-145); UREA NITROGEN, BLOOD 25 mg/dL (7-18)
[2022-08-16 06:32] LABS: MAGNESIUM 2.3 mg/dL (1.8-2.4); PHOSPHORUS 3.2 mg/dL (2.5-4.9)
--- NOTE | 2022-08-16 07:09 | NUR ---
TRANSFER OF CARE TO DAY SHIFT, REPORT ENDORSED TO SHALONDA SANTIAGO
--- NOTE | 2022-08-16 07:15 | NUR ---
RECEIVED BEDSIDE REPORT FROM FUNERAL HOME DIRECTOR ADITHYA RN. PT SLEEPING. SR ON MONITOR. TRACH TO VENT, A/C VC FIO2 28%, VT 400, RR 16, PEEP 5. NO ACUTE S/S OF RESPIRATORY DISTRESS. PICC LINE TO CJ, RUNNING NS @5 MLS/H. TUBE FEEDING RUNNING JEVITY @ 65MLS/H, FWF 100 MLS Q6H. BILAT SOFT WRIST RESTRAINTS APPLIED PER MD ORDER. SHAH IN PLACE TO GRAVITY, BED TO LOWEST POSITION, CALL LIGHT WITHIN REACH, WILL CONTINUE TO MONITOR.
--- NOTE | 2022-08-16 09:00 | NUR ---
RECEIVED PHONE CALL FROM DAUGHTER. UPDATED PT INFORMATION. ALL QUESTIONS ANSWERED.
[2022-08-16] MEDS: POLYETHYLENE GLYCOL 17 GM/PKT PO SCH ×2 (09:06→20:47)
[2022-08-16] MEDS: LACTOBACILLUS RHAMNOSUS GG 1 EACH CAP PO SCH ×2 (09:06→20:47)
[2022-08-16] MEDS: AMIODARONE 200 MG TAB PO SCH (09:06)
[2022-08-16] MEDS: VANCOMYCIN 1,000 MG in DEXTROSE 5% 250 ML IV SCH (09:12)
[2022-08-16] MEDS: LANSOPRAZOLE 30 MG CAPDR GT SCH (09:12)
[2022-08-16] MEDS: MIDODRINE 5 MG TAB PO SCH ×3 (09:46→17:04)
[2022-08-16] MEDS: ACETAMINOPHEN 325 MG TAB PO PRN (11:41)
[2022-08-16] MEDS: GAUZE TP SCH (12:55)
[2022-08-16] MEDS: Z-GUARD PASTE TP SCH (12:57)
--- NOTE | 2022-08-16 13:33 | NUR ---
FAMILY/DAUGHTER AT BEDSIDE. UPDATED PT INFORMATION. ALL QUESTIONS ANSWERED.
--- NOTE | 2022-08-16 13:38 | NUR ---
DR SHAIKH CORTES AT BEDSIDE. UPDATED PT INFORMATION.
--- NOTE | 2022-08-16 13:40 | NUR ---
08/16/22 RD FOLLOW UP COMPLETED. PLEASE REFER TO NUTRITION ASSESSMENT UNDER CARE ACTIVITY FOR ESTIMATED NUTRITIONAL NEEDS. 1. CONTINUE JEVITY 1.2 @ 65 ML/HR, FWF 100 ML Q6H TOLERATED. 2. CONTINUE WITH MARCELO BID (PROVIDES 160 KCAL AND 5 GM PROTEIN DAILY) AND BANATROL DAILY. - WITH MARCELO BID, JEVITY 1.2 YURY @ 65 ML/HR GOAL RATE WILL PROVIDE 1560 ML TOTAL VOLUME, 2032 KCAL, 92 GM PROTEIN, AND 1258.92 ML FREE WATER MEETING 100% ESTIMATED ENERGY NEEDS AND 85% ESTIMATED PROTEIN NEEDS; ADEQUATE. 3. MONITOR GASTRIC RESIDUALS AND NUTRITION RELATED LAB VALUES. 4. RD TO FOLLOW-UP 2-3 DAYS, HIGH RISK JUSTICE CAMPA RD
--- NOTE | 2022-08-16 14:07 | NUR ---
DR GARCIA ROUNDNOELLE AT BEDSIDE. UPDATED PT INFORMATION. ORDERED PT DOWN GRADE TO TELE
--- NOTE | 2022-08-16 16:56 | NUR ---
DR STARKS ROUNDING AT BEDSIDE. UPDATED PT INFORMATION. NO NEW ORDER.
[2022-08-16] MEDS: FLUCONAZOLE 200 MG/NS PREMIX 100 ML IV SCH (17:04)
--- NOTE | 2022-08-16 19:05 | NUR ---
TRANSFER OF CARE FROM DAY SHIFT, REPORT RECEIVED FROM SHALONDA SALINAS. PATIENT RECEIVED IN BED, AWAKE, EYES OPEN AND DOES NOT APPEAR TO BE IN DISTRESS. PATIENT IS TRACH TO VENT WITH THE CURRENT SETTINGS: AC/VC, FIO2=24, WW=955, RATE=16, AND PEEP=5. PATIENT HAS THE FOLLOWING MEDICATIONS CURRENTLY INFUSING: NORMAL SALINE AT 10 ML/HR CURRENT VITALS AT START OF SHIFT: TEMP=97.9F, HR=58, O2 ECU=890%, EW=888/66, R=25. PATIENT HAS PEG WITH FEEDING. CURRENTLY RECEIVING JEVITY 1.2 AT 65ML/HR. HAS SHAH IN PLACE, WILL CONTINUE TO MONITOR PATIENT
--- NOTE | 2022-08-16 19:09 | NUR ---
ENDORSED TO BILINGUAL SCHOOL PSYCHOLOGIST ADITHYA LIZ FOR CONTINUITY OF CARE. ALL QUESTIONS ANSWERED.
[2022-08-16] MEDS: LEVOFLOXACIN 250 MG/D5 PREMIX 50 ML IV SCH (21:22)
[2022-08-17] VITALS (10 sets, daily range): BP systolic 113–147; BP diastolic 64–88
[2022-08-17] MEDS: HYDRAGUARD CREAM TP SCH ×2 (01:41→13:18)
[2022-08-17] MEDS: ACETAMINOPHEN 325 MG TAB PO PRN (01:56)
[2022-08-17 05:51] LABS: BASOPHILS # (AUTO) 0.1 K/uL (0.00-0.22); BASOPHILS % (AUTO) 0.8 % (0.0-2.0); EOSINOPHILS # (AUTO) 0.3 K/uL (0-0.4); EOSINOPHILS % (AUTO) 2.3 % (0.0-4.0); HEMOGLOBIN 10.1 g/dL (12.0-18.0); LYMPHOCYTES # (AUTO) 2.4 K/uL (2.0-11.5); LYMPHOCYTES % (AUTO) 17.4 % (20.5-51.1); MEAN CORPUSCULAR HEMOGLOBIN 31 pg (27-31); MEAN CORPUSCULAR HGB CONC 34 g/dL (33-37); MEAN CORPUSCULAR VOLUME 91.2 fL (80-94); MONOCYTES # (AUTO) 0.9 K/uL (0.8-1.0); MONOCYTES % (AUTO) 6.5 % (1.7-9.3); NEUTROPHILS # (AUTO) 10.2 K/uL (1.8-7.7); PLATELET COUNT (AUTO) 384 K/uL (140-450); RED BLOOD CELL COUNT(AUTO) 3.29 MIL/uL (4.20-6.10); RED CELL DISTRIBUTION WIDTH 16.7 % (11.6-13.7); WHITE BLOOD COUNT (AUTO) 13.9 K/uL (4.8-10.8)
[2022-08-17] MEDS: LANSOPRAZOLE 30 MG CAPDR GT SCH (05:55)
[2022-08-17 06:28] LABS: CARBON DIOXIDE 26.1 mmol/L (21-32); CHLORIDE 103 mmol/L (98-107); CREATININE 1.1 mg/dL (0.6-1.3); GLUCOSE 134 mg/dL (74-106); POTASSIUM 4.1 mmol/L (3.5-5.1); SODIUM SERUM 137 mmol/L (136-145); UREA NITROGEN, BLOOD 19 mg/dL (7-18)
[2022-08-17 06:30] LABS: MAGNESIUM 2.3 mg/dL (1.8-2.4); PHOSPHORUS 3.2 mg/dL (2.5-4.9)
--- NOTE | 2022-08-17 06:55 | NUR ---
PHONE CALL PLACED TO PATIENT'S DTR KEE; INFORMED THAT PATIENT WAS TRANSFERRED TO TO [facility], RM [id number]
--- NOTE | 2022-08-17 07:04 | NUR ---
PATIENT TRANSFERRED TO [facility], RM [address]. REPORT ENDORSED TO ESPERANZA. INFORMED ESPERANZA, THAT PICC LINE WAS CLOGGED AND MESSAGE WAS SENT TO FOR ORDERS FOR CATHFLO
[2022-08-17] MEDS: ALBUTEROL SULFATE/IPRATROPIU 3 ML SOL IH SCH ×3 (08:23→19:53)
[2022-08-17] MEDS: AMIODARONE 200 MG TAB PO SCH (09:59)
[2022-08-17] MEDS: LACTOBACILLUS RHAMNOSUS GG 1 EACH CAP PO SCH ×2 (09:59→21:53)
[2022-08-17] MEDS: VANCOMYCIN 1,000 MG in DEXTROSE 5% 250 ML IV SCH (09:59)
[2022-08-17] MEDS: POLYETHYLENE GLYCOL 17 GM/PKT PO SCH ×2 (10:00→21:54)
[2022-08-17] MEDS: MIDODRINE 5 MG TAB PO SCH ×3 (10:00→17:00)
[2022-08-17] MEDS: GAUZE TP SCH (13:18)
[2022-08-17] MEDS: Z-GUARD PASTE TP SCH (13:19)
--- NOTE | 2022-08-17 19:30 | NUR ---
RECEIVED REPORT FROM DAY SHIFT NURSE ESPERANZA FOR CONTINUITY OF CARE. PATIENT IS A&O X1. PATIENT IS ON TRACH TO VENT. PATIENT'S IV IS A RIGHT UPPER PICC LINE DOUBLE LUMEN. FEEDING PUMP IS RUNNING. PATIENT IS LYING IN SEMI-FOWLERS POSITION. WILL CONTINUE TO OBSERVE PATIENT.
--- NOTE | 2022-08-17 20:34 | NUR ---
1938 PT BREATHING FAST IN THE 40"S RN AWARE. TRACH CARE DONE. STITCHES CUT AND INNER GAUZE REMOVED. INLINE HHN TX GIVEN. NO CHANGES PT STILL BREATHING FAST
[2022-08-17] MEDS: LORazepam 2 MG/ML VIAL IM/IVP PRN (21:54)
[2022-08-18] VITALS: BP 103/63
--- NOTE | 2022-08-18 | NUR ---
ADMINISTERED 2100 MEDICATIONS SUCCESSFULLY WITHOUT ANY ISSUES. ADMINISTERED ATIVAN TO PATIENT. PATIENT WAS AWAKE AND LOOKING AROUND THE ROOM; SPOKE WITH RT ABOUT PATIENT. PATIENT SAID THAT HIS BREATHING INDICATES THAT HE IS AGITATED AND RECOMMENDED GIVING HIM SOMETHING TO CALM DOWN. OBTAINED PATIENT'S VITALS AND CHECKED HIS CHART. ATIVAN WAS APPROPRIATE TO GIVE. WILL CONTINUE TO OBSERVE PATIENT.
[2022-08-18] MEDS: ALBUTEROL SULFATE/IPRATROPIU 3 ML SOL IH SCH ×4 (01:23→19:00)
[2022-08-18] MEDS: LEVOFLOXACIN 250 MG/D5 PREMIX 50 ML IV SCH ×2 (01:30→21:59)
[2022-08-18] MEDS: HYDRAGUARD CREAM TP SCH ×2 (01:41→13:16)
[2022-08-18 04:00] VITALS: BP 111/62
--- NOTE | 2022-08-18 04:00 | NUR ---
PATIENT IS RESTING COMFORTABLY. PATIENT HAD BM; PATIENT WAS CHANGED AND NEW DRESSING WAS APPLIED. PATIENT HAS BEEN SUCTIONED THROUGHOUT THE NIGHT. RT HAS BEEN IN TO SEE PATIENT. SINCE PATIENT HAS FALLEN ASLEEP; RESPIRATORY RATE HAS IMPROVED. WILL CONTINUE TO OBSERVE PATIENT.
[2022-08-18 05:54] LABS: BASOPHILS # (AUTO) 0.1 K/uL (0.00-0.22); BASOPHILS % (AUTO) 0.7 % (0.0-2.0); EOSINOPHILS # (AUTO) 0.2 K/uL (0-0.4); EOSINOPHILS % (AUTO) 1.4 % (0.0-4.0); HEMATOCRIT 30.3 % (36-52); HEMOGLOBIN 10.3 g/dL (12.0-18.0); LYMPHOCYTES # (AUTO) 2.2 K/uL (2.0-11.5); LYMPHOCYTES % (AUTO) 14.5 % (20.5-51.1); MEAN CORPUSCULAR HEMOGLOBIN 31 pg (27-31); MEAN CORPUSCULAR HGB CONC 34 g/dL (33-37); MEAN CORPUSCULAR VOLUME 90.8 fL (80-94); MONOCYTES # (AUTO) 0.8 K/uL (0.8-1.0); MONOCYTES % (AUTO) 5.5 % (1.7-9.3); NEUTROPHILS # (AUTO) 11.6 K/uL (1.8-7.7); NEUTROPHILS % (AUTO) 77.9 % (42.2-75.2); PLATELET COUNT (AUTO) 427 K/uL (140-450); RED BLOOD CELL COUNT(AUTO) 3.34 MIL/uL (4.20-6.10); RED CELL DISTRIBUTION WIDTH 16.6 % (11.6-13.7); WHITE BLOOD COUNT (AUTO) 14.9 K/uL (4.8-10.8)
[2022-08-18] MEDS: LANSOPRAZOLE 30 MG CAPDR GT SCH (06:08)
[2022-08-18 06:30] LABS: MAGNESIUM 2.6 mg/dL (1.8-2.4); PHOSPHORUS 3.5 mg/dL (2.5-4.9)
[2022-08-18 06:50] LABS: ANION GAP 11.3 (8-16); CARBON DIOXIDE 25.7 mmol/L (21-32); CHLORIDE 102 mmol/L (98-107); CREATININE 1.1 mg/dL (0.6-1.3); GLUCOSE 129 mg/dL (74-106); SODIUM SERUM 135 mmol/L (136-145); UREA NITROGEN, BLOOD 18 mg/dL (7-18)
--- NOTE | 2022-08-18 07:21 | NUR ---
ENDORSED TO DAY SHIFT NURSE GAURAV FOR CONTINUITY OF CARE. PATIENT IS STABLE.
--- NOTE | 2022-08-18 07:30 | NUR ---
RECEIVED REPORT FROM CASING PULLER NURSE FOR CONTINUITY OF CARE, POC DISCUSSED. PT TRACH TO VENT WITH RESP THERAPIST AT BEDSIDE. PT O2 SAT AT 97% ON TELE MONITOR SHOWING SR. ALL SAFETY MEASURES IN PLACE, CALL LIGHT WITHIN REACH. WILL CONTINUE TO MONITOR.
--- NOTE | 2022-08-18 07:47 | NUR ---
DR ANNE AT BEDSIDE, RENEWED RESTRAINT ORDER. NEURO CHECK COMPLETED
[2022-08-18 08:00] VITALS: BP 124/71
[2022-08-18] MEDS: VANCOMYCIN 1,000 MG in DEXTROSE 5% 250 ML IV SCH (08:30)
[2022-08-18] MEDS: LACTOBACILLUS RHAMNOSUS GG 1 EACH CAP PO SCH ×2 (08:31→20:49)
[2022-08-18] MEDS: AMIODARONE 200 MG TAB PO SCH (08:31)
[2022-08-18] MEDS: POLYETHYLENE GLYCOL 17 GM/PKT PO SCH ×2 (08:32→20:49)
[2022-08-18] MEDS: MIDODRINE 5 MG TAB PO SCH ×3 (08:33→16:05)
--- NOTE | 2022-08-18 09:24 | NUR ---
MARK MEDICATION ADMINISTERED PER MD ORDER, PT TOLERATED ADMINISTRATION. 10 CC RESIDUAL, FLUSHED WITH 10 CC PRIOR TO AND AFTER ADMINISTRATION. MIDODRINE HELD DUE TO ELEVATED BP PER PARAMETERS. ALL SAFETY MEASURES IN PLACE, CALL LIGHT WITHIN REACH. WILL CONTINUE TO MONITOR.
[2022-08-18 12:00] VITALS: BP 117/75
--- NOTE | 2022-08-18 13:00 | NUR ---
MIDODRINE HELD DUE TO ELEVATED BLOOD PRESSURE PER PARAMETERS, 117/75
[2022-08-18] MEDS: Z-GUARD PASTE TP SCH (13:16)
[2022-08-18] MEDS: GAUZE TP SCH (13:17)
--- NOTE | 2022-08-18 15:00 | NUR ---
PT NEW TUBE FEEDING STARTED. AT BEDSIDE, ALL QUESTIONS HAVE BEEN ANSWERED. PT STABLE, ORAL CARE PREFORMED. ALL SAFETY MEASURES IN PLACE, CALL LIGHT WITHIN REACH. WILL CONTINUE TO MONITOR.
[2022-08-18 16:00] VITALS: BP 133/75
--- NOTE | 2022-08-18 16:03 | NUR ---
BLOOD PRESSURE IS 133/75 HEART RATE 80, NO S/S OF DISTRESS. MARK MIDODRINE HELD DUE TO ELEVATED BLOOD PRESSURE
--- NOTE | 2022-08-18 18:51 | NUR ---
ALL NEEDS HAVE BEEN MET, PT IS STABLE. POC WILL BE DISCUSSED AND ENDORSED TO RECEIVING DISTRIBUTION STATION OPERATOR NURSE.
[2022-08-18 20:00] VITALS: BP 124/71
[2022-08-19] VITALS (7 sets, daily range): BP systolic 103–142; BP diastolic 64–78
[2022-08-19] MEDS: ALBUTEROL SULFATE/IPRATROPIU 3 ML SOL IH SCH ×4 (01:20→19:21)
[2022-08-19] MEDS: HYDRAGUARD CREAM TP SCH ×2 (01:46→13:00)
[2022-08-19] MEDS: LORazepam 2 MG/ML VIAL IM/IVP PRN (04:03)
[2022-08-19] MEDS: LANSOPRAZOLE 30 MG CAPDR GT SCH (05:53)
[2022-08-19 06:17] LABS: BASOPHILS # (AUTO) 0.1 K/uL (0.00-0.22); BASOPHILS % (AUTO) 0.5 % (0.0-2.0); EOSINOPHILS # (AUTO) 0.1 K/uL (0-0.4); EOSINOPHILS % (AUTO) 0.9 % (0.0-4.0); HEMATOCRIT 32.6 % (36-52); HEMOGLOBIN 10.6 g/dL (12.0-18.0); LYMPHOCYTES # (AUTO) 1.6 K/uL (2.0-11.5); LYMPHOCYTES % (AUTO) 9.9 % (20.5-51.1); MEAN CORPUSCULAR HEMOGLOBIN 30 pg (27-31); MEAN CORPUSCULAR HGB CONC 33 g/dL (33-37); MEAN CORPUSCULAR VOLUME 93.1 fL (80-94); MONOCYTES % (AUTO) 6.1 % (1.7-9.3); NEUTROPHILS % (AUTO) 82.6 % (42.2-75.2); PLATELET COUNT (AUTO) 454 K/uL (140-450); RED CELL DISTRIBUTION WIDTH 16.9 % (11.6-13.7); WHITE BLOOD COUNT (AUTO) 15.8 K/uL (4.8-10.8)
[2022-08-19 08:08] LABS: MAGNESIUM 2.6 mg/dL (1.8-2.4); PHOSPHORUS 3.8 mg/dL (2.5-4.9)
[2022-08-19 08:10] LABS: ANION GAP 13.1 (8-16); CARBON DIOXIDE 24.9 mmol/L (21-32); CHLORIDE 102 mmol/L (98-107); CREATININE 1.1 mg/dL (0.6-1.3); GLUCOSE 134 mg/dL (74-106); SODIUM SERUM 136 mmol/L (136-145); UREA NITROGEN, BLOOD 22 mg/dL (7-18)
--- NOTE | 2022-08-19 08:30 | NUR ---
RECEIVED ON A PB 840 VENTILATOR PLUGGED INTO RED OUTLET TO A PORTEX DCT AIRWAY SECURED WITH A NORBERT TRACH TIE CUFF PRESSURE CHECKED NOTED AMBU BAG AT BEDSIDE PATIENT PRESENTING WITH INCREASED WOB; COARSE BREATH SOUNDS; FLOW DEFICIENCY - SET AT 90 LPM; DEEP TRACHEAL SUCTION FOR COPIOUS THICK YELLOW SECRETIONS AIRWAY NOW PATENT; INCREASED MECHANICAL Vt TO 480 ml TO ACHIEVE/MAINTAIN EXPIRATORY Vt AT 490 ml (ARDS PROTOCOL 7ml/kg) TITRATED FLOW TO 75 LPM - PERIOPERATIVE ASSISTANT TO MONITOR AND TITRATE FLOW TOLERATED
--- NOTE | 2022-08-19 08:52 | NUR ---
TOLERATING ADJUSTED VENTILATOR SETTINGS NOTED AT 0830 EQUAL CHEST RISE GOO AERATION THROUGHOUT BILATERAL LUNG BLOOM AIRWAY PATENT Addendum: 08/19/22 at 1709 by Peter Collins RT TITRATED FLOW TO 60 LPM
[2022-08-19] MEDS: POLYETHYLENE GLYCOL 17 GM/PKT PO SCH ×2 (09:00→22:50)
[2022-08-19] MEDS: MIDODRINE 5 MG TAB PO SCH ×3 (09:00→17:00)
[2022-08-19] MEDS: VANCOMYCIN 1,000 MG in DEXTROSE 5% 250 ML IV SCH (09:00)
[2022-08-19] MEDS: AMIODARONE 200 MG TAB PO SCH (09:00)
[2022-08-19] MEDS: LACTOBACILLUS RHAMNOSUS GG 1 EACH CAP PO SCH ×2 (09:00→22:49)
--- NOTE | 2022-08-19 10:57 | NUR ---
WOUND CARE RE-EVALUATION NOTE: PT. WITH RE-TRACH, NO NEW SKIN BREAKS.,SACRAL WOUND COMPLETE RESURFACING, RE-MODELING STAGE. POC DISCUSSED WITH PRIMARY RN HERMINIA. -MARK-TRACH SKIN PINK AND INTACT -PRESSURE INJURY STAGE 3, SACROCOCCYX 4X4CM, WOUND BED 100% RESURFACING THIN SCAR TISSUE. MOIST, NO ODOR, MARK-WOUND SKIN MOIST NON-BLANCHABLE REDNESS REMAIN
--- NOTE | 2022-08-19 11:23 | NUR ---
STABLE RESTING COMFORTABLY GOOD CHEST RISED DEEP TRACHEAL SUCTION FOR LARGE SEMI THICK YELLOW SECRETIONS AIRWAY PATENT
[2022-08-19] MEDS: Z-GUARD PASTE TP SCH (13:00)
[2022-08-19] MEDS: GAUZE TP SCH (13:00)
--- NOTE | 2022-08-19 15:57 | NUR ---
08/19/22 RD FOLLOW UP COMPLETED PLEASE REFER TO NUTRITION ASSESSMENT UNDER CARE ACTIVITY FOR ESTIMATED NUTRITIONAL NEEDS. 1. CONTINUE JEVITY 1.2 @65 ML/HR, FWF 100ML Q6H 2. CONTINUE MARCELO BID (PROVIDES 160 KCAL, 5 G PROTEIN) - WITH MARCELO BID, JEVITY 1.2 YURY @ 65 ML/HR GOAL RATE WILL PROVIDE 1560 ML TOTAL VOLUME, 2032 KCAL, 92 GM PROTEIN, AND 1658.92 ML FREE WATER MEETING 100% ESTIMATED ENERGY NEEDS AND 85% ESTIMATED PROTEIN NEEDS; ADEQUATE. 3. MONITOR GI, GASTRIC RESIDUALS, AND LAB VALUES. 4. RD TO FOLLOW-UP 3-5 DAYS, MODERATE RISK REVIEWED BY CHIKI COHEN RD
--- NOTE | 2022-08-19 19:30 | NUR ---
RECEIVED REPORT FROM DAY SHIFT NURSE HERMINIA FOR CONTINUITY OF CARE. PATIENT IS A&O X1. PATIENT IS ON TRACH TO VENT. PATIENT'S IV IS A RIGHT UPPER PICC LINE DOUBLE LUMEN. FEEDING PUMP IS RUNNING. PATIENT IS LYING IN SEMI-FOWLERS POSITION. WILL CONTINUE TO OBSERVE PATIENT.
[2022-08-19] MEDS: LEVOFLOXACIN 250 MG/D5 PREMIX 50 ML IV SCH (22:50)
[2022-08-20] VITALS: BP 121/69
--- NOTE | 2022-08-20 | NUR ---
2100 MEDICATION WAS ADMINISTERED TO PATIENT. MEDICATION TOLERATED WELL. PATIENT'S BREATHING HAS BEEN BETWEEN 95-97%; PATIENT HAS HAD MINIMAL COUGHING. FEEDING TUBE IS PATENT; FEEDING IS RUNNING CONTINUOUS. WILL CONTINUE TO OBSERVE PATIENT.
[2022-08-20] MEDS: ALBUTEROL SULFATE/IPRATROPIU 3 ML SOL IH SCH ×2 (01:39→08:00)
[2022-08-20] MEDS: HYDRAGUARD CREAM TP SCH ×2 (01:42→13:13)
[2022-08-20 04:00] VITALS: BP 127/72
--- NOTE | 2022-08-20 04:00 | NUR ---
PATIENT HAD A BM. PATIENT WAS CLEANED. DRESSING WAS DRY&INTACT. RT HAS COME IN TO SEE PATIENT THROUGHOUT THE NIGHT. PATIENT HAS BEEN SUCTIONED BY RT AND MYSELF. RT HAS BEEN INFORMED THAT A SPUTUM CULTURE IS NEEDED, AND WILL OBTAIN ONE NEXT TIME PATIENT IS SUCTIONED BY THEM. PATIENT HAS SLEPT THROUGHOUT THE NIGHT, WAKING UP PERIODICALLY. WILL CONTINUE TO OBSERVE PATIENT.
[2022-08-20 05:29] LABS: BASOPHILS # (AUTO) 0.1 K/uL (0.00-0.22); BASOPHILS % (AUTO) 1.3 % (0.0-2.0); EOSINOPHILS # (AUTO) 0.2 K/uL (0-0.4); EOSINOPHILS % (AUTO) 1.7 % (0.0-4.0); HEMATOCRIT 32.1 % (36-52); HEMOGLOBIN 10.9 g/dL (12.0-18.0); LYMPHOCYTES # (AUTO) 2.8 K/uL (2.0-11.5); LYMPHOCYTES % (AUTO) 24.6 % (20.5-51.1); MEAN CORPUSCULAR HEMOGLOBIN 31 pg (27-31); MEAN CORPUSCULAR HGB CONC 34 g/dL (33-37); MEAN CORPUSCULAR VOLUME 91.3 fL (80-94); MONOCYTES # (AUTO) 0.9 K/uL (0.8-1.0); MONOCYTES % (AUTO) 8.1 % (1.7-9.3); NEUTROPHILS # (AUTO) 7.3 K/uL (1.8-7.7); NEUTROPHILS % (AUTO) 64.3 % (42.2-75.2); PLATELET COUNT (AUTO) 452 K/uL (140-450); RED BLOOD CELL COUNT(AUTO) 3.51 MIL/uL (4.20-6.10); WHITE BLOOD COUNT (AUTO) 11.4 K/uL (4.8-10.8)
[2022-08-20 06:34] LABS: ANION GAP 13.4 (8-16); CARBON DIOXIDE 26.7 mmol/L (21-32); CHLORIDE 101 mmol/L (98-107); CREATININE 1.1 mg/dL (0.6-1.3); GLUCOSE 116 mg/dL (74-106); PHOSPHORUS 4.3 mg/dL (2.5-4.9); POTASSIUM 4.1 mmol/L (3.5-5.1); SODIUM SERUM 137 mmol/L (136-145); UREA NITROGEN, BLOOD 23 mg/dL (7-18)
[2022-08-20] MEDS: LANSOPRAZOLE 30 MG CAPDR GT SCH (06:47)
--- NOTE | 2022-08-20 07:39 | NUR ---
TEXTED DR. ANNE FOR BILAT SOFT RESTRAINTS RENEWAL FOR 0800. AWAITING ORDERS.
--- NOTE | 2022-08-20 07:46 | NUR ---
ENDORSED TO DAY SHIFT NURSE JAYSON FOR CONTINUITY OF CARE. PATIENT IS STABLE.
--- NOTE | 2022-08-20 07:47 | NUR ---
RECEIVED PT CARE AND REPORT FROM RICKI LIZ. PT IS RESTING IN BED SEMI FOWLERS ON LEFT SIDE WITH OU CLOSED. TRACH TO VENT. TUBE FEEDING RUNNING. BILAT SOFT RESTRAINTS ON. SKIN IS INTACT WITHOUT SWELLING OR REDNESS TO RESTRAINTS AREA. NO VISIBLE S/S OF DISTRESS, DISCOMFORT, PAIN OR SOB. CALL LIGHT IS WITHIN REACH.
[2022-08-20 08:00] VITALS: BP 123/68
--- NOTE | 2022-08-20 08:00 | NUR ---
RENEWED BILAT SOFT RESTRAINTS ORDER PER DR. ANNE. WANTED TO ATTEMPT TO HAVE RESTRAINTS REMOVE AND PATIENT MONITORED.
--- NOTE | 2022-08-20 09:00 | NUR ---
REMOVED BILAT SOFT WRIST RESTRAINTS, SKIN INTACT WITHOUT REDNESS OR SWELLING. PT APPEARS TO BE CALM AND NOT ATTEMPTING TO REMOVE LINES OR TUBING AT THIS TIME.
[2022-08-20] MEDS: MIDODRINE 5 MG TAB PO SCH ×3 (09:09→17:52)
[2022-08-20] MEDS: VANCOMYCIN 1,000 MG in DEXTROSE 5% 250 ML IV SCH (09:10)
[2022-08-20] MEDS: LACTOBACILLUS RHAMNOSUS GG 1 EACH CAP PO SCH ×2 (09:10→21:19)
[2022-08-20] MEDS: AMIODARONE 200 MG TAB PO SCH (09:10)
[2022-08-20] MEDS: POLYETHYLENE GLYCOL 17 GM/PKT PO SCH ×2 (09:11→21:18)
[2022-08-20 12:00] VITALS: BP 123/71
[2022-08-20] MEDS: Z-GUARD PASTE TP SCH (13:13)
[2022-08-20] MEDS: GAUZE TP SCH (13:13)
--- NOTE | 2022-08-20 15:55 | NUR ---
GAVE UPDATE ON PATIENT'S STATUS. HAS QUESTIONS CONCERNING VENT. CALLED RT AND LET THEM KNOW THAT PATIENT HAS QUESTIONS. STATED THAT THEY WOULD COME BY.
[2022-08-20 16:00] VITALS: BP 120/69
--- NOTE | 2022-08-20 18:08 | NUR ---
PATIENT HAS BEEN OFF OF RESTRAINTS SINCE 0900. NO INDICATION THAT PATIENT REQUIRES THEM THROUGHOUT SHIFT. PT HAS NOT ATTEMPTED TO PULL AT TUBING OR LINES. PT IS RESTING WITH OU CLOSED. AT BEDSIDE. NO VISIBLE S/S OF DISTRESS, DISCOMFORT, PAIN OR SOB. CALL LIGHT IS WITHIN REACH. PT IS TRACH TO VENT. FEEDING RUNNING ORDERED. ALL NEEDS HAVE BEEN MET AT THIS TIME. WILL ENDORSE TO NOC SHIFT.
--- NOTE | 2022-08-20 19:30 | NUR ---
RECEIVED REPORT FROM DAY SHIFT NURSE JAYSON FOR CONTINUITY OF CARE. PATIENT IS A&O X1. PATIENT IS ON TRACH TO VENT. PATIENT'S IV IS A RIGHT UPPER PICC LINE DOUBLE LUMEN. FEEDING PUMP IS RUNNING. PATIENT IS LYING IN SEMI-FOWLERS POSITION. WILL CONTINUE TO OBSERVE PATIENT.
[2022-08-20 20:00] VITALS: BP 128/75
[2022-08-20] MEDS: LEVOFLOXACIN 250 MG/D5 PREMIX 50 ML IV SCH (21:18)
[2022-08-21] VITALS: BP 115/69
[2022-08-21] MEDS: ALBUTEROL SULFATE/IPRATROPIU 3 ML SOL IH SCH ×4 (01:00→19:28)
[2022-08-21] MEDS: HYDRAGUARD CREAM TP SCH ×2 (01:17→13:17)
--- NOTE | 2022-08-21 03:30 | NUR ---
PATIENT HAD BM. PATIENT WAS CLEANED WITH ASSISTANCE FROM SHALONDA MARTÍNEZ; NEW BLANKET AND GOWN WERE PLACED ON PATIENT. FOAM DRESSING ON COCCYX WAS CHANGED; NO OTHER DRESSINGS OR BANDAGES WERE PRESENT. PATIENT TOLERATED CHANGE WELL. FEEDING WAS RESTARTED. WILL CONTINUE TO OBSERVE PATIENT.
[2022-08-21 04:00] VITALS: BP 122/67
[2022-08-21 05:51] LABS: BASOPHILS # (AUTO) 0.1 K/uL (0.00-0.22); BASOPHILS % (AUTO) 0.8 % (0.0-2.0); EOSINOPHILS # (AUTO) 0.2 K/uL (0-0.4); EOSINOPHILS % (AUTO) 1.5 % (0.0-4.0); HEMATOCRIT 31.5 % (36-52); HEMOGLOBIN 10.4 g/dL (12.0-18.0); LYMPHOCYTES % (AUTO) 18.2 % (20.5-51.1); MEAN CORPUSCULAR HEMOGLOBIN 31 pg (27-31); MEAN CORPUSCULAR HGB CONC 33 g/dL (33-37); MEAN CORPUSCULAR VOLUME 93.1 fL (80-94); MONOCYTES # (AUTO) 0.7 K/uL (0.8-1.0); MONOCYTES % (AUTO) 6.6 % (1.7-9.3); NEUTROPHILS # (AUTO) 8.1 K/uL (1.8-7.7); NEUTROPHILS % (AUTO) 72.9 % (42.2-75.2); PLATELET COUNT (AUTO) 439 K/uL (140-450); RED BLOOD CELL COUNT(AUTO) 3.38 MIL/uL (4.20-6.10); RED CELL DISTRIBUTION WIDTH 16.8 % (11.6-13.7); WHITE BLOOD COUNT (AUTO) 11.1 K/uL (4.8-10.8)
[2022-08-21 06:22] LABS: ANION GAP 13.1 (8-16); CARBON DIOXIDE 24.9 mmol/L (21-32); CHLORIDE 100 mmol/L (98-107); GLUCOSE 119 mg/dL (74-106); SODIUM SERUM 134 mmol/L (136-145); UREA NITROGEN, BLOOD 19 mg/dL (7-18)
[2022-08-21 06:26] LABS: MAGNESIUM 2.5 mg/dL (1.8-2.4); PHOSPHORUS 3.5 mg/dL (2.5-4.9)
[2022-08-21] MEDS: LANSOPRAZOLE 30 MG CAPDR GT SCH (06:38)
--- NOTE | 2022-08-21 07:28 | NUR ---
ENDORSED TO DAY SHIFT NURSE JAYSON FOR CONTINUITY OF CARE. PATIENT IS STABLE.
[2022-08-21 08:00] VITALS: BP 127/71
--- NOTE | 2022-08-21 08:06 | NUR ---
RECEIVED PT CARE AND REPORT FROM RICKI LIZ. PT IS RESTING IN BED SEMI FOWLERS ON LEFT SIDE WITH OU CLOSED. TRACH TO VENT. FEEDING RUNNING. NO VISIBLE S/S OF DISTRESS, DISCOMFORT, PAIN OR SOB. CALL LIGHT IS WITHIN REACH, ALL NEEDS MET AT THIS TIME.
[2022-08-21] MEDS: AMIODARONE 200 MG TAB PO SCH (09:28)
[2022-08-21] MEDS: MIDODRINE 5 MG TAB PO SCH ×3 (09:28→18:01)
[2022-08-21] MEDS: VANCOMYCIN 1,000 MG in DEXTROSE 5% 250 ML IV SCH (09:28)
[2022-08-21] MEDS: LACTOBACILLUS RHAMNOSUS GG 1 EACH CAP PO SCH ×2 (09:29→23:09)
[2022-08-21] MEDS: POLYETHYLENE GLYCOL 17 GM/PKT PO SCH ×2 (09:29→23:09)
[2022-08-21] MEDS: OLANZapine 10 MG VIAL IM PRN (10:53)
--- NOTE | 2022-08-21 10:55 | NUR ---
ZYPREXA GIVEN VIA IM IN RIGHT DELTOID FOR AGITATION DURING ABG BLOOD DRAW.
--- NOTE | 2022-08-21 11:30 | NUR ---
ATTEMPTED ABG FROM PT. PT WAS AGITATED AND NOT A WILL PARTICIPANT. WILL TRY AGAIN LATER. RN AWARE.
[2022-08-21 12:00] VITALS: BP 159/71
[2022-08-21] MEDS: GAUZE TP SCH (13:17)
[2022-08-21] MEDS: Z-GUARD PASTE TP SCH (13:17)
--- NOTE | 2022-08-21 13:19 | NUR ---
SYLVIA HELD D/T BP 159/81.
--- NOTE | 2022-08-21 14:10 | NUR ---
ATTEMPTED ABG FROM PT MULTIPLE TIMES NOT AVAILABLE TO OBTAIN IT DUE TO PT STILL BEING VERY AGITATED. RN AWARE PT NEEDS SOMETHING TO CALM HIM.
--- NOTE | 2022-08-21 14:17 | NUR ---
TEXTED DR. ANNE TO REPORT PATIENT AGITATION. RT AND MYSELF AFRAID THAT PATIENT MIGHT PULL OUT TRACH. ZYPREXA PRN WAS GIVEN AND PT CONTINUED TO BE AGITATED. DR TAL PULIDOODELMAL 25MG PRN Q.8HR. Addendum: 08/21/22 at 1419 by Agency 05 RN RN SEROQUEL 25MG Q.6HR
[2022-08-21] MEDS ORDERED: QUEtiapine FUMARATE 25 MG TAB GT SCH (14:20)
[2022-08-21] MEDS: QUEtiapine FUMARATE 25 MG TAB GT PRN (14:46)
--- NOTE | 2022-08-21 15:24 | NUR ---
DR CAMARENA CHANGED PT VENT VT FROM 480 TO 400. STATED PT WAS NOT TOLERATING THIS SETTING AND CHANGED IT ACCORDINGLY. WILL CONTINUE TO MONITOR AND CHANGE RT BOARD TO ACCURATE UPDATED SETTINGS.
[2022-08-21 16:00] VITALS: BP 112/65
--- NOTE | 2022-08-21 18:18 | NUR ---
PT IS RESTING IN BED WITH OU CLOSED. AT BEDSIDE. NO VISIBLE S/S OF DISTRESS, DISCOMFORT, PAIN OR SOB. TRACH TO VENT. FEEDING RUNNING ORDERED. CALL LIGHT IS WITHIN REACH. PATIENT'S TEMPERATURE WAS 99.0 DURING LAST SET OF VITALS. RECEIVED CALL FROM DAUGHTER STATING THAT THE PATIENT'S EXECUTIVE SALES MANAGER STATED THAT TEMP IS A FEVER AND HIS CORE TEMPERATURE SHOULD BE CHECKED. NOTIFIED DAUGHTER THAT TEMP WILL BE CHECKED AGAIN AND SHE WILL RECEIVE A CALL ONCE IT IS DONE. ALL OTHER NEEDS HAVE BEEN MET AT THIS TIME. WILL ENDORSE TO NOC SHIFT.
--- NOTE | 2022-08-21 18:44 | NUR ---
ORAL TEMP 98.8. REPORTED TEMP TO DAUGHTER.
[2022-08-21] MEDS ORDERED: IPRATROPIUM 0.02% 0.5 MG/2.5 ML NEBU INH ONE (19:10)
[2022-08-21] MEDS ORDERED: ALBUTEROL 0.083% 2.5 MG/3 ML NEBU INH ONE (19:10)
--- NOTE | 2022-08-21 19:30 | NUR ---
HAND-OFF REPORT RECEIVED FROM JAYSON LIZ FOR CONTINUITY OF CARE. ENDORSED SEROQUEL AVAILABLE PRN FOR PT ATTEMPTING TO PULL TRACH WITH HANDS. PT RECEIVED: TRACH TO VENT. FI02 35%, CK=591, RATE 16, PEEP 5. G TUBE FEEDING JEVITY 1.2 @65 ML/H. WATER FLUSH 100ML/Q6H. CJ PICC LINE TKO. SHAH TO GRAVITY DRAIN. SINUS RHYTHM PER FOOD INSPECTOR. RESTFUL. NO DISTRESS NOTED. FLACC 0/10. CONT TO MONITOR AND POSITION PER COMFORT.
[2022-08-21 20:00] VITALS: BP 98/40
--- NOTE | 2022-08-21 20:30 | NUR ---
DAUGHTER CALLED FOR VITAL SIGN CHECK IN PARTICULAR 02 SAT AND TO REMIND NURSES TO CUT THE LIGHT OUT WHEN ALL PROCEDURES ARE COMPLETED ALLOWING PT TO REST WITHOUT BRIGHT LIGHT SHINNING.
[2022-08-21] MEDS: LEVOFLOXACIN 250 MG/D5 PREMIX 50 ML IV SCH (22:00)
[2022-08-22] VITALS (7 sets, daily range): BP systolic 90–133; BP diastolic 58–78
--- NOTE | 2022-08-22 | NUR ---
GTUBE FEEDING AND TUBES CHANGED. NEW BOTTLE HUNG. GTUBE STOMA CARE AND NEW DRESSING APPLIED. CONT TO MONITOR. SUCTIONED. CLOUDY WHITE WATERY SECRETIONS. CONTINUED RESTFUL. POSITIONED FOR COMFORT.
[2022-08-22] MEDS: ALBUTEROL SULFATE/IPRATROPIU 3 ML SOL IH SCH ×4 (02:35→19:45)
[2022-08-22] MEDS: QUEtiapine FUMARATE 25 MG TAB GT PRN (02:45)
--- NOTE | 2022-08-22 02:45 | NUR ---
SEROQUEL 25 MG. PT RIGHT HAND PULLING ON TRACH APPARATUS.
[2022-08-22] MEDS: HYDRAGUARD CREAM TP SCH ×2 (02:50→13:32)
[2022-08-22 05:32] LABS: BASOPHILS # (AUTO) 0.1 K/uL (0.00-0.22); BASOPHILS % (AUTO) 0.6 % (0.0-2.0); EOSINOPHILS # (AUTO) 0.3 K/uL (0-0.4); EOSINOPHILS % (AUTO) 2.2 % (0.0-4.0); HEMATOCRIT 31.3 % (36-52); HEMOGLOBIN 10.3 g/dL (12.0-18.0); LYMPHOCYTES # (AUTO) 2.1 K/uL (2.0-11.5); LYMPHOCYTES % (AUTO) 17.1 % (20.5-51.1); MEAN CORPUSCULAR HEMOGLOBIN 31 pg (27-31); MEAN CORPUSCULAR HGB CONC 33 g/dL (33-37); MEAN CORPUSCULAR VOLUME 93.3 fL (80-94); MONOCYTES # (AUTO) 0.7 K/uL (0.8-1.0); MONOCYTES % (AUTO) 5.6 % (1.7-9.3); NEUTROPHILS % (AUTO) 74.5 % (42.2-75.2); PLATELET COUNT (AUTO) 400 K/uL (140-450); RED BLOOD CELL COUNT(AUTO) 3.35 MIL/uL (4.20-6.10); RED CELL DISTRIBUTION WIDTH 16.9 % (11.6-13.7); WHITE BLOOD COUNT (AUTO) 12.1 K/uL (4.8-10.8)
[2022-08-22 06:26] LABS: CARBON DIOXIDE 25.1 mmol/L (21-32); CHLORIDE 100 mmol/L (98-107); CREATININE 0.9 mg/dL (0.6-1.3); GLUCOSE 114 mg/dL (74-106); POTASSIUM 4.1 mmol/L (3.5-5.1); SODIUM SERUM 135 mmol/L (136-145); UREA NITROGEN, BLOOD 21 mg/dL (7-18)
[2022-08-22 06:29] LABS: MAGNESIUM 2.5 mg/dL (1.8-2.4); PHOSPHORUS 3.8 mg/dL (2.5-4.9)
[2022-08-22] MEDS: LANSOPRAZOLE 30 MG CAPDR GT SCH (06:30)
--- NOTE | 2022-08-22 07:29 | NUR ---
ENDORSED PATIENT FROM COCOA BEAN ROASTER HELPER NURSE.ON TRACH T VENT WITH OOY268%.VITALS ARE STABLE.PLAN OF CARE DISCUSSED WITH THE COCOA BEAN ROASTER HELPER NURSE.ALL SAFETY MEASURES IN PLACE.
--- NOTE | 2022-08-22 07:30 | NUR ---
HAND-OFF REPORT TO GAURAV LIZ AND LORIE IVORY. PT STABLE. VENT SETTINGS UNCHANGED.
--- NOTE | 2022-08-22 07:30 | NUR ---
SPONGE BATH. LARGE AMT SOFT TENACIOUS BROWN STOOL. REPOSITION PER COMFORT.
--- NOTE | 2022-08-22 07:30 | NUR ---
RECEIVED REPORT FROM SALESPERSON JEWELRY NURSE. PT STABLE, OFF RESTRAINTS. ALL SAFETY MEASURES IN PLACE. WILL CONTINUE TO MONITOR UNDER THE CARE OF SHALONDA AVILA
--- NOTE | 2022-08-22 07:52 | NUR ---
RN AT [facility] FOR PATIENT PHYSICAL HYGIENE AND REPOSITION NO DISTRESS NOTED ELECTRICAL LOGGING OPERATOR TO ATTEMPT HHN THERAPY, VENTILATOR ASSESSMENT AT A LATER TIME
[2022-08-22] MEDS: LACTOBACILLUS RHAMNOSUS GG 1 EACH CAP PO SCH ×2 (08:10→21:00)
[2022-08-22] MEDS: MIDODRINE 5 MG TAB PO SCH ×3 (08:11→16:53)
[2022-08-22] MEDS: AMIODARONE 200 MG TAB PO SCH (08:11)
[2022-08-22] MEDS: VANCOMYCIN 1,000 MG in DEXTROSE 5% 250 ML IV SCH (08:12)
[2022-08-22] MEDS: POLYETHYLENE GLYCOL 17 GM/PKT PO SCH ×2 (08:13→21:00)
--- NOTE | 2022-08-22 08:30 | NUR ---
PT HAS BEEN CLEANED, PERSONAL HYGIENE GIVEN. NEW FOAM DRESSING PLACE TO SACRAL. PT STABLE
--- NOTE | 2022-08-22 08:40 | NUR ---
RECEIVED ON A PB 840 VENTILATOR PLUGGED INTO RED OUTLET TOLERATING WELL WITHOUT ADVERSE REACTIONS NOTED TO A PORTEX DCT #8 AIRWAY SECURED WITH A NORBERT TRACH TIE CUFF PRESSURE CHECKED NOTED AMBU BAG AT BEDSIDE RESTING COMFORTABLY EQUAL CHEST RISE DEEP TRACHEAL SUCTION FOR LARGE THIN YELLOW/GREEN SECRETIONS AIRWAY PATENT
--- NOTE | 2022-08-22 09:00 | NUR ---
ALL SCHEDULED MEDICATION ADMINISTERED PER MD ORDER BY SHALONDA SAEED. NO RESIDUAL WAS NOTED FROM GTUBE, FLUSHED WITH 5CC PRIOR TO AND AFTER ADMINISTRATION. FULL ASSESSMENT COMPLETED. IV CLEAN, DRY, PATENT AND INTACT. ALL SAFETY MEASURES IN PLACE, CALL LIGHT WITHIN REACH. WILL CONTINUE TO MONITOR.
--- NOTE | 2022-08-22 10:14 | NUR ---
DAUGHTER AT BEDSIDE, SUCTIONING COMPLETED. ALL DAUGHTERS QUESTIONS ANSWERED. DAUGHTER BROUGHT RED LIGHT FOR PT, EDUCATION PROVIDED ON IMPORTANCE OF NOT PLACING DIRECTLY ON SKIN TO PREVENT SKIN IRRITATION. PT DAUGHTER VERBALIZED SHE UNDERSTANDS. WILL CONTINUE TO MONITOR.
--- NOTE | 2022-08-22 11:04 | NUR ---
SLIGHTLY IRRITABLE ON OCCASION GOOD CHEST RISE DEEP TRACHEAL SUCTION FOR LARGE THIN YELLOW/GREEN SECRETIONS AIRWAY PATENT DAUGHTER AT BEDSIDE
[2022-08-22] MEDS: GAUZE TP SCH (13:31)
[2022-08-22] MEDS: Z-GUARD PASTE TP SCH (13:32)
--- NOTE | 2022-08-22 13:59 | NUR ---
SALESPERSON WOMEN'S DRESSES AT BEDSIDE FOR PHYSICAL HYGIENE AND REPOSITION NO DISTRESS NOTED SMOOTH STUCCO RESURFACER TO ATTEMPT HHN THERAPY AND VENTILATOR ASSESSMENT AT A LATER TIME
--- NOTE | 2022-08-22 14:04 | NUR ---
RESTING WELL NO APPARENT DISTRESS NOTED GOOD CHEST RISE DEEP TRACHEAL SUCTION FOR SMALL THIN YELLOW SECRETIONS AIRWAY PATENT
--- NOTE | 2022-08-22 16:54 | NUR ---
PT BLOOD PRESSURE IS 115/73, MARK MIDODRINE NON ADMINISTERED DUE TO MD PARAMETERS.
--- NOTE | 2022-08-22 17:11 | NUR ---
STABLE NO EVIDENCE FOR PULMONARY DISTRESS NOTED GOOD CHEST RISE AND AERATION THROUGHOUT BILATERAL LUNG BLOOM AIRWAY PATENT Addendum: 08/22/22 at 1749 by Peter Collins RT SPOUSE AT BEDSIDE
--- NOTE | 2022-08-22 18:48 | NUR ---
ALL NEEDS HAVE BEEN MET THROUGHOUT THE SHIFT, PT STABLE. ALL NEEDS HAVE BEEN MET. ALL SAFETY MEASURES IN PLACE, CALL LIGHT WITHIN REACH. WILL CONTINUE TO MONITOR.
--- NOTE | 2022-08-22 19:30 | NUR ---
HAND-OFF REPORT RECEIVED FROM A.Sheyla NURSE FOR CONTINUITY OF CARE: CHANGE IN ANTIBIOTIC THERAPY. TO BEGIN MERREM AND D/C VANCO AND LEVAQUIN. AND DAUGHTER THINK PT LOOKS A BIT BETTER TODAY. PT NOW RESTING WITHOUT RESTLESSNESS. CONT TRACH TO VENT. FI02 24%, TV 400, RATE 16, PEEP 5. ALL SAFETY PRECAUTIONS IN PLACE. MONITOR AND ASSIST NEEDED. COMFORT MEASURES.
--- NOTE | 2022-08-22 19:30 | NUR ---
RECEIVED REPORT FROM DAY SHIFT NURSE. PT STABLE. ALL SAFETY MEASURES IN PLACE. TRACH TO VENT SETTINGS 24% O2. TV 400, RATE 16, PEEP 5, O2 SAT 96%.
[2022-08-22] MEDS: MEROPENEM 1,000 MG in NACL 0.9% 50 ML IV SCH (21:00)
[2022-08-23] VITALS (8 sets, daily range): BP systolic 103–134; BP diastolic 60–78
--- NOTE | 2022-08-23 | NUR ---
PT CONTINUED STABLE. DEEP TRACH SUCTION AND ORAL SUCTION. GOOD RETURN OF THIN CLOUDY WHITE MUCUS SECRETIONS. POSITION PER COMFORT
[2022-08-23] MEDS ORDERED: MEROPENEM 1,000 MG VIAL IV ONE ×2 (00:17→05:19)
[2022-08-23] MEDS: HYDRAGUARD CREAM TP SCH ×2 (00:32→12:15)
--- NOTE | 2022-08-23 00:45 | NUR ---
LARGE AMT STOOL, COPIOUS AMT ACTUALLY. HYGIENE GIVEN AND POSITIONED FOR COMFORT. CONT TO MONITOR AND ASSIST.
[2022-08-23] MEDS: ALBUTEROL SULFATE/IPRATROPIU 3 ML SOL IH SCH ×4 (01:00→19:00)
[2022-08-23] MEDS: MEROPENEM 1,000 MG in NACL 0.9% 50 ML IV SCH ×3 (05:00→21:25)
[2022-08-23] MEDS: LANSOPRAZOLE 30 MG CAPDR GT SCH (06:39)
--- NOTE | 2022-08-23 07:12 | NUR ---
RECEIVED ON A PB 840 VENTILATOR PLUGGED INTO RED OUTLET TOLERATING WELL WITHOUT COMPLICATIONS NOTED TO A PORTEX DCT #8 AIRWAY SECURED WITH A NORBERT TRACH TIE CUFF PRESSURE CHECKED NOTED AMBU BAG AT BEDSIDE SLIGHTLY IRRITABLE RN AWARE EQUAL CHEST RISE DEEP TRACHEAL SUCTION FOR COPIOUS THIN YELLOW/GREEN SECRETINS AIRWAY PATENT
--- NOTE | 2022-08-23 07:30 | NUR ---
ENDORSED PATIENT FROM CERTIFIED BREASTFEEDING EDUCATOR NURSE.VITALS ARE STABLE.ON TRACH TO VENT WITH 24 PERCENT O2.ALL SAFETY MEASURES IN PLACE.POC DISCUSSED .WILL CONTINUE TO MONITOR.
--- NOTE | 2022-08-23 07:30 | NUR ---
HAND-OFF REPORT TO A.M NURSE FOR CONTINUITY OF CARE. PT APPEARS A BIT ANXIOUS WITH RIGHT HAND NEARING TRACH. PT SUCTIONED BY RT AT THIS TIME. QUANTITY SUFFICIENT OUTPUT FROM [facility]. RELINQUISHED PT TO CARE OF A.M NURSE.
[2022-08-23] MEDS: QUEtiapine FUMARATE 25 MG TAB GT PRN (07:40)
--- NOTE | 2022-08-23 07:49 | NUR ---
PRN SEROQUEL ADMINISTERED PER MD ORDER FOR AGITATION. 10CC RESIDUAL, FLUSHED PRIOR TO AND AFTER ADMINISTRATION. RT COMPLETED BREATHING TREATMENT. O2 SATURATIONS AT 97%, WILL CONTINUE TO MONITOR.
--- NOTE | 2022-08-23 08:10 | NUR ---
PT ATTEMPTING TO PULL TRACH AND MEDICAL LINES, LEAST RESTRICTIVE INTERVENTIONS DONE HOWEVER UNSUCCESSFUL. MD MADE AWARE, NEW ORDER FOR RESTRAINTS COMPLETED. 2 FINGER SPACE ON RESTRAINTS, NEURO CHECK COMPLETE. WILL CONTINUE TO MONITOR.
[2022-08-23] MEDS: MIDODRINE 5 MG TAB PO SCH ×3 (08:14→17:00)
[2022-08-23] MEDS: LACTOBACILLUS RHAMNOSUS GG 1 EACH CAP PO SCH ×2 (08:15→21:23)
[2022-08-23] MEDS: AMIODARONE 200 MG TAB PO SCH (08:16)
[2022-08-23] MEDS: POLYETHYLENE GLYCOL 17 GM/PKT PO SCH ×3 (08:18→21:23)
--- NOTE | 2022-08-23 09:00 | NUR ---
MARK MEDICATION ADMINISTERED PER MD ORDER BY SHALONDA SAEED, PRECEPTOR AT BEDSIDE, PT TOLERATED ADMINISTRATION. 15CC RESIDUAL, FLUSHED PRIOR TO AND AFTER ADMINISTRATION. FULL ASSESSMENT COMPLETE. MIDODRINE HELD DUE TO ELEVATED BLOOD PRESSURE BASED ON PARAMETERS, MIRALAX HELD DUE TO DIARRHEA. SUCTIONING AND ORAL CARE COMPLETE, O2 SATURATIONS AT 97%. NO S/S OF DISTRESS AT THIS TIME. ALL SAFETY MEASURES IN PLACE, CALL LIGHT WITHIN REACH. WILL CONTINUE TO MONITOR.
--- NOTE | 2022-08-23 10:05 | NUR ---
SLIGHTLY AGITATED GOOD CHEST RISE DEEP TRACHEAL SUCTION FOR LARGE THIN YELLOW SECRETIONS AIRWAY PATENT
[2022-08-23] MEDS: OLANZapine 10 MG VIAL IM PRN (10:08)
--- NOTE | 2022-08-23 10:08 | NUR ---
PT CONTINUED TO BE AGITATED, VENT ALARMING, SUCTIONING COMPLETED, RT CALLED FOR DESATURATION. PRN ZYPREXA IM ADMINISTERED PER MD ORDER, [employer] INFORMATION CLERK FELICIA AT BEDSIDE FOR ASSISTANCE. RT AT BEDSIDE PREFORMING SUCTIONING. ALL SAFETY MEASURES IN PLACE, WILL CONTINUE TO MONITOR.
--- NOTE | 2022-08-23 10:55 | NUR ---
PT HAS BEEN CLEANED, REPOSITIONED AND ALL HYGIENE NEEDS HAVE BEEN MET. PT NEUROCHECK COMPLETE. O2 SATURATIONS AT 96%. NO S/S OF DISTRESS. ALL SAFETY MEASURES IN PLACE, CALL LIGHT WITHIN REACH. WILL CONTINUE TO MONITOR.
[2022-08-23] MEDS: GAUZE TP SCH (12:15)
[2022-08-23] MEDS: Z-GUARD PASTE TP SCH (12:15)
--- NOTE | 2022-08-23 13:00 | NUR ---
MARK MEDICATION ADMINISTERED PER MD ORDER. PT TOLERATED ADMINISTRATION. 10 CC RESIDUAL, FLUSHED WITH 5 CC PRIOR TO AND AFTER. ALL SAFETY MEASURES IN PLACE, NO S/S OF DISTRESS. WILL CONTINUE TO MONITOR.
--- NOTE | 2022-08-23 15:24 | NUR ---
PERSONNEL HYGIENE AND SUCTIONING PREFORMED. NO BM NOTED. AT BEDSIDE, UPDATED ON STATUS AND EVENTS THROUGHOUT THE DAY. ALL QUESTIONS ANSWERED. NO S/S OF DISTRESS AT THIS TIME. WILL CONTINUE TO MONITOR.
--- NOTE | 2022-08-23 16:15 | NUR ---
08/23/22 RD FOLLOW UP COMPLETED PLEASE REFER TO NUTRITION ASSESSMENT UNDER CARE ACTIVITY FOR ESTIMATED NUTRITIONAL NEEDS. 1. CONTINUE JEVITY 1.2 @65 ML/HR GOAL RATE AND BANATROL DAILY 2. RECOMMEND INCREASING FWF TO 150ML Q6H 3. RECOMMEND SWITCHING MARCELO BID WITH PROSOURCE 1/DAY FOR BETTER NUTRIENT UTILIZATION (PROVIDES 60 KCAL, 15 G PROTEIN) - WITH PROSOURCE, JEVITY 1.2 @ 65 ML/HR WILL PROVIDE 1560 ML TOTAL VOLUME, 1932 KCAL, 101 GM PROTEIN, AND 1859 ML FREE WATER MEETING 100% ESTIMATED ENERGY AND PROTEIN NEEDS; ADEQUATE. 4. MONITOR GI, GASTRIC RESIDUALS, AND LAB VALUES. 5. CONSULT RD PRN 6. RD TO FOLLOW-UP 3-5 DAYS, MODERATE RISK REVIEWED BY CHIKI COHEN RD
--- NOTE | 2022-08-23 17:00 | NUR ---
148/80 BLOOD PRESSURE, MIDODRINE HELD PER PARAMETERS
--- NOTE | 2022-08-23 18:23 | NUR ---
NEW TUBE FEEDING HAVE BEEN STARTED. ALL NEEDS HAVE BEEN MET THROUGHOUT THE SHIFT, PT HAS REMAINED STABLE. ALL SAFETY MEASURES IN PLACE.
--- NOTE | 2022-08-23 18:38 | NUR ---
ALL NEEDS HAVE BEEN MET THROUGH OUT THE SHIFT, ALL SAFETY MEASURES IN PLACE. WILL CONTINUE TO MONITOR. PT WILL BE ENDORSED TO CLAIMS AUDITOR NURSE AT 1900.
--- NOTE | 2022-08-23 19:15 | NUR ---
HAND-OFF REPORT RECEIVED FROM OFF-GOING RN. REPORTE: RESTLESS TODAY AND MEDS EFFECTIVE IN PROMOTING RELAXATION. ALSO HOB UP TO INCREASE DRAINAGE. EFFECTIVE IN LESSENING COUGHING AND DRAINAGE OF OTHERWISE STANDING MUCOUS IN BACK OF THROAT. HELD MIDODRINE FOR B/P. ASSUMED CARE OF PT AT THIS TIME. RECEIVED PT SLEEPING. TRACH TO VENT. POC. MEDS SCHEDULED AND PROVIDE COMFORT CARE WHILE MAINTAINING OXYGENATION.
[2022-08-23] MEDS ORDERED: IPRATROPIUM 0.02% 0.5 MG/2.5 ML NEBU INH ONE (19:34)
[2022-08-23] MEDS ORDERED: ALBUTEROL 0.083% 2.5 MG/3 ML NEBU INH ONE (19:34)
--- NOTE | 2022-08-23 21:30 | NUR ---
PT DAUGHTER PHONED FOR UPDATE. INFORMED PT CONTINUES WITH GOOD VENTILATION AND DRAINAGE OF MUCOUS PER MORE "UPRIGHT " POSITION. IN-LINE SUCTION AND ORAL SUCTION MODERATE AMT CLEAR AND OPAQUE WHITE DRAINAGE. VENT TO TRACH SETTING UNCHANGED.
[2022-08-24] VITALS: BP 127/73
[2022-08-24] MEDS: HYDRAGUARD CREAM TP SCH ×2 (01:00→13:30)
[2022-08-24] MEDS: IPRATROPIUM 0.02% 0.5 MG/2.5 ML NEBU INH SCH ×3 (01:51→13:35)
[2022-08-24] MEDS: ALBUTEROL 0.083% 2.5 MG/3 ML NEBU INH SCH ×3 (01:52→13:35)
[2022-08-24 04:00] VITALS: BP 111/71
[2022-08-24] MEDS: MEROPENEM 1,000 MG in NACL 0.9% 50 ML IV SCH ×2 (05:00→13:30)
--- NOTE | 2022-08-24 05:35 | NUR ---
FOUND PATIENT SATING AT 78% SPO2. CHECK PULSE OX PROB WHICH BROUGHT SPO2 UP TO 83 AND THEN AFTER SUCTIONING SAW MINIMAL IMPROVEMENT. RAISED PATIENTS FIO2 TO 28% AND FLOW TO 60L AND PATIENT WAS SATING AT 93% WITHIN A FEW BREATHS.
[2022-08-24] MEDS: LANSOPRAZOLE 30 MG CAPDR GT SCH (06:41)
--- NOTE | 2022-08-24 07:15 | NUR ---
RECEIVED REPORT FROM HARVESTING CONTRACTOR NURSE FOR CONTINUITY OF CARE. PT STABLE AT THIS TIME.
--- NOTE | 2022-08-24 07:30 | NUR ---
NO STOOLS. STOMA CARE WITH SOAP AND H20.DRIED WELL. REDRESSED. SPLIT DRAIN DRESSING APPLIED HAND-OFF REPORT TO ONCOMING NURSE. PT STABLE. RELINQUISHED CARE OF PT AT THIS TIME.
--- NOTE | 2022-08-24 07:38 | NUR ---
RECEIVED ON A PB 840 VENTILATOR PLUGGED INTO RED OUTLET TOLERATING WELL WITHOUT ADVERSE REACTIONS NOTED TO A PORTEX DCT #8 AIRWAY SECURED WITH A NORBERT TRACH TIE CUFF PRESSURE CHECKED NOTED AMBU BAG AT BEDSIDE DEEP CHEST RISE TACHYPNEIC AT 33 BPM DEEP TRACHEAL SUCTION X 2 FOR COPIOUS THIN YELLOW/GREEN SECRETIONS AIRWAY PATENT TAILOR HELPER TO REVIEW COMPLETE FLUID INTAKE WITH VANDANA/RN
[2022-08-24 08:00] VITALS: BP 115/75
[2022-08-24] MEDS: AMIODARONE 200 MG TAB PO SCH (09:00)
[2022-08-24] MEDS: LACTOBACILLUS RHAMNOSUS GG 1 EACH CAP PO SCH (09:00)
[2022-08-24] MEDS: POLYETHYLENE GLYCOL 17 GM/PKT PO SCH (09:00)
[2022-08-24] MEDS: MIDODRINE 5 MG TAB PO SCH ×3 (09:00→17:00)
--- NOTE | 2022-08-24 09:49 | NUR ---
GOOD CHEST RISE DEEP TRACHEAL SUCTION FOR LARGE THIN YELLOW SECRETIONS AIRWAY PATENT
[2022-08-24 12:00] VITALS: BP 112/76
[2022-08-24 13:03] LABS: BASOPHILS # (AUTO) 0.1 K/uL (0.00-0.22); BASOPHILS % (AUTO) 0.8 % (0.0-2.0); EOSINOPHILS # (AUTO) 0.3 K/uL (0-0.4); EOSINOPHILS % (AUTO) 2.4 % (0.0-4.0); HEMATOCRIT 34.7 % (36-52); HEMOGLOBIN 11.5 g/dL (12.0-18.0); LYMPHOCYTES # (AUTO) 2.3 K/uL (2.0-11.5); LYMPHOCYTES % (AUTO) 16.4 % (20.5-51.1); MEAN CORPUSCULAR HEMOGLOBIN 31 pg (27-31); MEAN CORPUSCULAR HGB CONC 33 g/dL (33-37); MEAN CORPUSCULAR VOLUME 93.5 fL (80-94); MONOCYTES # (AUTO) 0.9 K/uL (0.8-1.0); MONOCYTES % (AUTO) 6.3 % (1.7-9.3); NEUTROPHILS # (AUTO) 10.5 K/uL (1.8-7.7); NEUTROPHILS % (AUTO) 74.1 % (42.2-75.2); PLATELET COUNT (AUTO) 480 K/uL (140-450); RED BLOOD CELL COUNT(AUTO) 3.72 MIL/uL (4.20-6.10); WHITE BLOOD COUNT (AUTO) 14.1 K/uL (4.8-10.8)
[2022-08-24 13:22] LABS: CHLORIDE 103 mmol/L (98-107); GLUCOSE 144 mg/dL (74-106); SODIUM SERUM 138 mmol/L (136-145); UREA NITROGEN, BLOOD 30 mg/dL (7-18)
[2022-08-24] MEDS: GAUZE TP SCH (13:30)
[2022-08-24] MEDS: Z-GUARD PASTE TP SCH (13:30)
[2022-08-24] MEDS: ACETAMINOPHEN 325 MG TAB PO PRN (13:30)
--- NOTE | 2022-08-24 13:35 | NUR ---
NO DISTRESS NOTED GOOD CHEST RISE DEEP TRACHEAL SUCTION FOR LARGE THICK YELLOW SECRETIONS AIRWAY PATENT
[2022-08-24 16:00] VITALS: BP 127/77
[2022-08-24] MEDS ORDERED: LACT10CA PO (16:27)
[2022-08-24] MEDS ORDERED: HEPA500056 SUBQ (16:27)
[2022-08-24] MEDS ORDERED: MERO1VIA15 IV (16:27)
== END 2022-08-24 18:50 | DRG 4 ==
LOC: MED 19:37 → MTU 22:12 → MED 22:12 → MTU 07-26 06:03 → MIC 08-04 18:02 → MTU 08-17 06:45
PROVIDERS: ADMIT Internal Medicine; ATTEND Internal Medicine
PROC: 5A1955Z Respiratory Ventilation, Greater than 96 Consecutive Hours (ICD-10-PCS; principal; 2022-08-05)
PROC: 0BH17EZ Insertion of Endotracheal Airway into Trachea, Via Natural or Artificial Opening (ICD-10-PCS; 2022-08-05)
PROC: 0B110F4 Bypass Trachea to Cutaneous with Tracheostomy Device, Open Approach (ICD-10-PCS; 2022-08-14)
DX: A41.9 Sepsis, unspecified organism (principal); J69.0 Pneumonitis due to inhalation of food and vomit; J15.0 Pneumonia due to Klebsiella pneumoniae; E43 Unspecified severe protein-calorie malnutrition; R65.21 Severe sepsis with septic shock; R53.2 Functional quadriplegia; J96.21 Acute and chronic respiratory failure with hypoxia; J44.0 Chronic obstructive pulmonary disease with (acute) lower respiratory infection; E87.0 Hyperosmolality and hypernatremia; I24.8 Other forms of acute ischemic heart disease; J44.1 Chronic obstructive pulmonary disease with (acute) exacerbation; F32.9 Major depressive disorder, single episode, unspecified; N31.9 Neuromuscular dysfunction of bladder, unspecified; E87.6 Hypokalemia; R13.12 Dysphagia, oropharyngeal phase; Y95 Nosocomial condition; I12.9 Hypertensive chronic kidney disease with stage 1 through stage 4 chronic kidney disease, or unspecified chronic kidney disease; N18.30 Chronic kidney disease, stage 3 unspecified; Z68.21 Body mass index [BMI] 21.0-21.9, adult
CPT/HCPCS: 36415; 36600; 71045; 76604; 80048; 80053; 80202; 81001; 82803; 82948; 83605; 83735; 84100; 85025; 85610; 85730; 87040; 87070; 87075; 87081; 87086; 87205; 89220; 93005; 94002; 94003; 94640; 94660; 96365; 96367; 99285; J0330; J0696; J0770; J1450; J1644; J1956; J2060; J2185; J2270; J2405; J2543; J2704; J3010; J3370; J3490; J7030; J7060; J7613; J7644; Q0092